=== PATIENT | male | born 1970 | race Caucasian/White ===

== ENCOUNTER 2020-04-14 15:56 | Outpatient (REF) | payer OTHER, SELFPAY | END 2020-04-14 15:57 | disposition home or self-care (01) | LOC: HO.LAB 15:56 | PROVIDERS: PCP Internal Medicine; Visit Provider Internal Medicine | DX: Z20.828 Contact with and (suspected) exposure to other viral communicable diseases (principal) | CPT/HCPCS: U0003 ==

== ENCOUNTER 2020-04-18 09:54 | Outpatient (REF) | payer OTHER, SELFPAY ==
--- NOTE | 2020-04-18 16:04 | MHC.AU.P13 ---
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 History of long-standing hearing loss, first diagnosed at ~15 years old. Patient denies any significant changes to his hearing. Notes that the hearing aids are not always comfortable. 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 Over the past few years he reports have two back surgeries, knee surgery, and surgery on his abdomen. Otoscopy: Right Ear: Unremarkable Left Ear: Unremarkable Tympanometry: Right Ear: Normal Middle Ear System (Type A) Left Ear: Normal Middle Ear System (Type A) Hearing Evaluation: Transducer(s) Used: Insert Earphones, Bone Conduction Method: Conventional Audiometry Stimuli Used: Pure Tones Right Ear: Description of Hearing: Normal hearing from 125-750 Hz, sloping to a mild to severe sensorineural hearing loss from 0075-5020 Hz. Left Ear: Description of Hearing: Normal hearing from 125-1000 Hz, sloping to a mild to moderately-severe sensorineural hearing loss from 8780-3509 Hz. Speech Recognition Threshold (SRT): Method Used: Monitored Live Voice Stimuli Used: Spondee words Right Ear: 20 dBHL Left Ear: 25 dBHL Word Discrimination: Method: Recorded Lists Word Lists Used: NU-6 Right Ear: 96% at 75 dBHL Left Ear: 96% at 75 dBHL Comparison: Compared to the most recent evaluation: Thresholds have improved bilaterally. Compared to most recent evaluation: Slight improvement in low frequency and high frequency thresholds bilaterally. Stable in the mid frequencies. Recommendations: Recommendations: Audiological re-evaluation in one year. See Hearing Aid Follow-Up note for more information. Hearing aid(s) reprogrammed with updated test results. Diagnosis: Primary Diagnosis: H90.3 Bilateral Sensorineural Hearing Loss Secondary Diagnosis: H93.13 Tinnitus, Bilateral Services Performed: Services Performed: Comprehensive Audiological Evaluation (CPT 55687) Tympanometry (CPT 50816) Signature: Provider: Luma Dickerson, CCC-A
== END 2020-04-18 09:55 | disposition home or self-care (01) ==
LOC: HO.SH 09:54
PROVIDERS: Visit Provider Internal Medicine
DX: H90.3 Sensorineural hearing loss, bilateral (principal); H93.13 Tinnitus, bilateral
CPT/HCPCS: 92557; 92567; 92593; 99499; V5266

== ENCOUNTER → 2020-08-22 14:16 | Outpatient (BNVA) | payer OTHER, SELFPAY | PROVIDERS: PCP Internal Medicine; Visit Provider Urology | DX: Z13.89 Encounter for screening for other disorder (principal) | CPT/HCPCS: 99202 ==

== ENCOUNTER 2020-09-19 11:07 | Outpatient (REF) | payer OTHER, SELFPAY ==
--- NOTE | ~2020-09-19 | XR_ITS ---
EXAMINATION: XR ABDOMEN KUB CLINICAL INDICATION: Abdominal distention COMPARISON: CT scan the abdomen and pelvis April 2014 TECHNIQUE: AP view of the abdomen. FINDINGS: The bowel gas pattern is normal with no evidence of ileus or obstruction. No unusual soft tissue calcifications are noted. Postsurgical changes related to fusion at the L5-S1 level XR/XR KUB IMPRESSION: No acute abnormality
[2020-09-19 12:25] LABS: MANUAL DIFF FLAG NO
[2020-09-19 12:30] LABS: Basophils Absolute Auto 0.1 X10*3/uL (0.0-0.2); Basophils Percent Auto 0.7 % (0-2); Eosinophils Absolute Auto 0.1 X10*3/uL (0.0-0.4); Eosinophils Percent Auto 1.6 % (0-4); Hematocrit 47.8 % (42-52); Hemoglobin 15.9 g/dl (14.0-18.0); Imm Gran Abs Auto 0.03 X10*3/uL (0.00-0.03); Imm Gran Pct Auto 0.3 % (0.0-0.4); Lymphocytes Absolute Auto 2.4 X10*3/uL (1.2-4.9); Lymphocytes Percent Auto 27.2 % (20-40); Mean Corpuscular HGB Conc 33.3 g/dl (31.0-36.0); Mean Corpuscular Hemoglobin 31.9 pg (27.0-33.0); Mean Platelet Volume 10.7 fL (9.4-12.4); Monocytes Absolute Auto 0.6 X10*3/uL (0.1-1.2); Monocytes Percent Auto 7.2 % (2-11); Neutrophils Absolute Auto 5.4 X10*3/uL (2.0-8.3); Platelet Count 210 X10*3/uL (160-400); Red Blood Count 4.98 X10*6/uL (4.60-5.80); Red Cell Distribution Width 13.2 % (11.0-16.0); White Blood Count 8.6 X10*3/uL (4.8-10.8)
[2020-09-19 12:58] LABS: Anion Gap 12 (12-20); Blood Urea Nitrogen 16 mg/dL (9-16); Calcium 9.6 mg/dL (8.4-10.2); Carbon Dioxide 30 mmol/L (22-29); Chloride 106 mmol/L (96-108); Estimated Glomerular Filt Rate > 60; Glucose Random 109 mg/dL (60-115); Potassium 4.7 mmol/L (3.3-5.1); Sodium 143 mmol/L (135-145)
[2020-09-19 13:23] LABS: Erythrocyte Sedimentation Rate 5 MM/HR (0-15)
[2020-09-20 09:18] LABS: HIV AB/AG Nonreactive (Nonreactive); HIV Num 1 0.04 S/CO (0.00-0.99)
[2020-09-22 12:51] LABS: Transglutaminase IgA 1 U/mL
[2020-09-22 13:17] LABS: Gliadin Deamidated IgA Ab 2 Units; Gliadin Deamidated IgG Ab 2 Units
== END 2020-09-19 11:08 | disposition home or self-care (01) ==
LOC: HO.XRAY 11:07
PROVIDERS: PCP Internal Medicine; Visit Provider Internal Medicine
DX: Z11.4 Encounter for screening for human immunodeficiency virus [HIV] (principal); R19.7 Diarrhea, unspecified; R14.0 Abdominal distension (gaseous)
CPT/HCPCS: 36415; 74018; 80048; 83516; 85025; 85652; 87389

== ENCOUNTER 2020-09-20 09:18 | Outpatient (REF) | payer OTHER, SELFPAY | END 2020-09-20 09:19 | disposition home or self-care (01) | LOC: HO.LNP 09:18 | PROVIDERS: Visit Provider Internal Medicine | DX: Z11.4 Encounter for screening for human immunodeficiency virus [HIV] (principal); R19.7 Diarrhea, unspecified | CPT/HCPCS: 87045; 87046; 87177; 87209; 87329 ==

== ENCOUNTER 2021-01-07 11:09 | Outpatient (REF) | payer OTHER, SELFPAY ==
--- NOTE | ~2021-01-07 | XR_ITS ---
EXAMINATION: XR CHEST CLINICAL INFORMATION: Shortness of breath COMPARISON: April 28, 2014 TECHNIQUE: 2 views of the chest were obtained. FINDINGS: No significant abnormality is noted involving the heart, lungs, mediastinum, bony thorax or soft tissues. XR/XR chest 2V IMPRESSION: No acute disease.
[2021-01-07 13:58] LABS: MANUAL DIFF FLAG NO
[2021-01-07 14:02] LABS: Basophils Percent Auto 0.6 % (0-2); Eosinophils Absolute Auto 0.2 X10*3/uL (0.0-0.4); Eosinophils Percent Auto 2.4 % (0-4); Hematocrit 49.2 % (42-52); Hemoglobin 16.5 g/dl (14.0-18.0); Imm Gran Abs Auto 0.03 X10*3/uL (0.00-0.03); Imm Gran Pct Auto 0.4 % (0.0-0.4); Lymphocytes Absolute Auto 2.5 X10*3/uL (1.2-4.9); Lymphocytes Percent Auto 35.5 % (20-40); Mean Corpuscular HGB Conc 33.5 g/dl (31.0-36.0); Mean Corpuscular Hemoglobin 33.4 pg (27.0-33.0); Mean Corpuscular Volume 99.6 fL (80-98); Mean Platelet Volume 11.1 fL (9.4-12.4); Monocytes Absolute Auto 0.6 X10*3/uL (0.1-1.2); Monocytes Percent Auto 7.9 % (2-11); Neutrophils Absolute Auto 3.8 X10*3/uL (2.0-8.3); Neutrophils Percent Auto 53.2 % (45-73); Platelet Count 236 X10*3/uL (160-400); Red Blood Count 4.94 X10*6/uL (4.60-5.80); White Blood Count 7.1 X10*3/uL (4.8-10.8)
[2021-01-07 14:23] LABS: Alanine Aminotransferase 22 U/L (0-40); Albumin Level 4.5 g/dL (3.5-5.0); Alkaline Phosphatase 105 U/L (39-117); Anion Gap 12 (12-20); Aspartate Amino Transferase 20 U/L (5-37); Bilirubin Total 0.3 mg/dL (0.0-1.0); Blood Urea Nitrogen 14 mg/dL (9-16); Calcium 9.6 mg/dL (8.4-10.2); Carbon Dioxide 28 mmol/L (22-29); Chloride 104 mmol/L (96-108); Cholesterol 235 mg/dL; Estimated Glomerular Filt Rate > 60; Glucose Random 111 mg/dL (60-115); HDL Cholesterol 52 mg/dL; LDL Cholesterol Calculated 160 mg/dl; Potassium 4.2 mmol/L (3.3-5.1); Sodium 140 mmol/L (135-145); Total Protein 6.8 g/dL (6.5-8.0); Triglycerides 115 mg/dL
[2021-01-07 14:36] LABS: T4 Thyroxine 6.5 ug/dL (4.5-12.0); Thyroid Stimulating Hormone 1.79 uIU/mL (0.32-4.0)
[2021-01-07 14:44] LABS: Erythrocyte Sedimentation Rate 3 MM/HR (0-15)
[2021-01-09 06:56] LABS: Triiodothyronine T3 Total 106 ng/dL (76-181)
[2021-01-09 21:02] LABS: TS Negative Control Passed; TS Panel A 0; TS Panel B 0; TS Positive Control Passed; TSpotTB Negative (SeeBelow)
== END 2021-01-07 11:10 | disposition home or self-care (01) ==
LOC: HO.HMGCX 11:09
PROVIDERS: PCP Internal Medicine; Visit Provider Internal Medicine
DX: R61 Generalized hyperhidrosis (principal); R06.02 Shortness of breath
CPT/HCPCS: 36415; 71046; 80053; 80061; 84436; 84443; 84480; 85025; 85652; 86481

== ENCOUNTER 2021-01-09 08:02 | Outpatient (REF) | payer OTHER, SELFPAY ==
--- NOTE | 2021-01-09 | PFT_ITS ---
INDICATION: Shortness of breath. SPIROMETRY: The FEV1 to FVC of 78% with an FEV1 of 4.05 L with 102% predicted and an FVC of 5.18 L which is 101% predicted. No significant response to bronchodilators noted. Maximum voluntary ventilation 108% predicted. LUNG VOLUMES: Total lung capacity 101% predicted with residual volume 100% predicted. DIFFUSION CAPACITY: DLCO 53% predicted. COMPARISONS: None. INTERPRETATION: No obstructive nor restrictive ventilatory defects identified. No significant response to bronchodilators noted. Normal maximum voluntary ventilation. Again, lung volumes are within normal limits. The flow volume loop also appears to be completely normal. However, the patient does have an isolated moderate diffusion impairment. Indeed, the diffusion impairment could response to some of the symptoms of shortness of breath. Need to consider underlying pulmonary vascular conditions or occult interstitial lung conditions. Further evaluation is warranted. Pulmonary consultation would be helpful. MD GOKUL Guillaume/MODL / [id number] MTDD
== END 2021-01-09 08:03 | disposition home or self-care (01) ==
LOC: HO.RESP 08:02
PROVIDERS: PCP Internal Medicine; Visit Provider Internal Medicine
DX: R06.02 Shortness of breath (principal)
CPT/HCPCS: 94060; 94727; 94729

== ENCOUNTER → 2021-02-10 10:54 | Outpatient (REF) | payer OTHER, SELFPAY ==
--- NOTE | 2021-02-10 11:41 | ECG_ITS ---
Test Reason : COPD Blood Pressure : / mmHG Vent. Rate : 054 BPM Atrial Rate : 054 BPM P-R Int : 178 ms QRS Dur : 090 ms QT Int : 402 ms P-R-T Axes : 068 057 041 degrees QTc Int : 381 ms Sinus bradycardia Otherwise normal ECG When compared with ECG of 28-APR-2014 16:36, QT has shortened Referred By: Rebel Mishra Electronically Signed By:ARIANA SALEEM
[2021-02-10 12:18] LABS: D Dimer < 200 NG/ML
[2021-02-10 12:35] LABS: Troponin-I High Sensitivity < 3.5 ng/L (<3.5-35.0)
[2021-02-12 10:41] LABS: Scleroderma 70 Antibody <1.0 NEG AI (<1.0 NEG)
[2021-02-12 14:21] LABS: Anti Nuclear Antibody Screen NEGATIVE (NEGATIVE)
== END ==
LOC: HO.CARD 10:54
PROVIDERS: PCP Internal Medicine; Visit Provider Hospitalist
DX: R06.00 Dyspnea, unspecified (principal); J98.59 Other diseases of mediastinum, not elsewhere classified; R94.2 Abnormal results of pulmonary function studies; F17.200 Nicotine dependence, unspecified, uncomplicated; J44.9 Chronic obstructive pulmonary disease, unspecified
CPT/HCPCS: 36415; 84484; 85379; 86038; 86039; 86235; 93005; 99202

== ENCOUNTER → 2021-03-03 11:18 | Outpatient (REF) | payer OTHER, SELFPAY ==
--- NOTE | 2021-03-03 11:22 | CA_ITS ---
Acquisition Time: 2021-03-03 11:24:01 Total Exercise Time: 00:12:00 Test Indications: SOB, CP Medications: SEE CHART Protocol: OSVALDO Max HR: 166 BPM 96% of Pred: 172 BPM Max BP: 180/050 mmHG Max Work Load: 13.4 METS Exercise stress test with exercise 12 min of Osvaldo protocol, with visably moderate shortness of breath, (pt reports his breathing as very bad ), no chest discomfort, without arrythmia, with normotensive response to exercise, without EKG changes meeting criteria for ischemia. Echo images obtained by tech at rest and immediately post peak exercise. Definity contrast used. Test reviewed with Dr Fernandez. Referred By: Rebel Mishra Overread By: CLAIRE CERRATO
== END ==
LOC: HO.CARD 11:18
PROVIDERS: Visit Provider Hospitalist
DX: R07.9 Chest pain, unspecified (principal); R06.00 Dyspnea, unspecified
CPT/HCPCS: 93350

== ENCOUNTER 2021-03-04 12:39 | Outpatient (RCR) | payer OTHER, SELFPAY | END 2021-04-16 13:37 | disposition home or self-care (01) | LOC: HO.PTCHIC 12:39 | PROVIDERS: PCP Internal Medicine; Visit Provider Internal Medicine | DX: M54.89 Other dorsalgia (principal) | CPT/HCPCS: 97110; 97162; 97163 ==

== ENCOUNTER → 2021-03-09 10:46 | Outpatient (BNVA) | payer OTHER, SELFPAY | PROVIDERS: PCP Internal Medicine; Visit Provider Hospitalist | DX: J98.59 Other diseases of mediastinum, not elsewhere classified (principal); J44.9 Chronic obstructive pulmonary disease, unspecified; R94.2 Abnormal results of pulmonary function studies; R06.00 Dyspnea, unspecified | CPT/HCPCS: 99212 ==

== ENCOUNTER 2021-03-10 09:13 | Outpatient (REF) | payer OTHER, SELFPAY ==
--- NOTE | ~2021-03-10 | CT_ITS ---
EXAMINATION: CT CHEST WITHOUT CONTRAST CLINICAL INFORMATION: Other disease in mediastinum. COMPARISON: Previous chest CTA April 2014 and chest x-ray December 2020. TECHNIQUE: Multidetector volumetric CT imaging of the chest was done. Axial MIP volume rendering provided. Sagittal and coronal reformatted images were obtained. This CT examination was performed using dose optimization techniques as appropriate, variously including the following: *Automated exposure control *Adjustment of mA and/or kV according to patient size (this includes techniques or standardized protocols for targeted exams where dose is matched to indication/reason for exam; i.e. extremities or head) *Use of iterative reconstruction technique DLP: 141 mGy-cm. 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 The lungs are clear. MEDIASTINUM: There is slight heterogeneous increased signal in the fat in the anterior superior mediastinum. This measures 1.3 x 1.6 cm in transverse and AP dimension, axial image 17 series 3 and extends over a length of 5.5 cm, axial image 57 series 7. This has low Hounsfield units, fatty. There are small mediastinal lymph nodes. There are no enlarged lymph nodes. The heart does not appear enlarged. There is no pericardial effusion. The thoracic aorta is normal in caliber. The thyroid gland is normal. PLEURA: There is no pleural effusion. No pleural mass or thickening. AXILLA: No lymphadenopathy. UPPER ABDOMEN: Unremarkable. OSSEOUS STRUCTURES: Unremarkable. CT/CT chest wo con IMPRESSION: Stable appearance to the heterogeneous, slightly increased signal in the fat in the anterior superior mediastinum from 2014. This is probably related to thymic tissue, possibly thymic hyperplasia. Stable appearance compared to 2014 suggests a benign process. This could be further evaluated with MRI of the chest if clinically indicated..
== END 2021-03-10 09:14 | disposition home or self-care (01) ==
LOC: HO.CT 09:13
PROVIDERS: PCP Internal Medicine; Visit Provider Hospitalist
DX: J98.59 Other diseases of mediastinum, not elsewhere classified (principal); R06.00 Dyspnea, unspecified; R94.2 Abnormal results of pulmonary function studies
CPT/HCPCS: 71250

== ENCOUNTER 2021-04-17 14:30 | Outpatient (REF) | payer OTHER, SELFPAY ==
--- NOTE | ~2021-04-17 | XR_ITS ---
EXAMINATION: XR CHEST CLINICAL INFORMATION: Cough COMPARISON: 01/07/2021 TECHNIQUE: 2 views of the chest were obtained. FINDINGS: The lungs are well expanded. There is no focal consolidation, edema, or effusion. No pneumothorax. The cardiomediastinal silhouette is within normal limits. No acute osseous abnormality. XR/XR chest 2V IMPRESSION: No acute pulmonary finding.
== END 2021-04-17 14:31 | disposition home or self-care (01) ==
LOC: HO.XRAY 14:30
PROVIDERS: Absent Provider Internal Medicine; PCP Internal Medicine; Visit Provider Registered Nurse Community Health
DX: R05.9 Cough, unspecified (principal)
CPT/HCPCS: 71046

== ENCOUNTER → 2021-04-29 10:53 | Outpatient (BNVA) | payer OTHER, SELFPAY | PROVIDERS: PCP Internal Medicine; Visit Provider Hospitalist | DX: R06.00 Dyspnea, unspecified (principal); R94.2 Abnormal results of pulmonary function studies; J40 Bronchitis, not specified as acute or chronic; J98.59 Other diseases of mediastinum, not elsewhere classified; F17.200 Nicotine dependence, unspecified, uncomplicated | CPT/HCPCS: 99212 ==

== ENCOUNTER 2022-03-18 13:42 | Outpatient (REF) | payer OTHER, SELFPAY ==
[2022-03-18 13:53] LABS: MANUAL DIFF FLAG NO
[2022-03-18 14:36] LABS: Basophils Absolute Auto 0.1 X10*3/uL (0.0-0.2); Basophils Percent Auto 0.6 % (0-2); Eosinophils Absolute Auto 0.1 X10*3/uL (0.0-0.4); Eosinophils Percent Auto 0.9 % (0-4); Hemoglobin 16.2 g/dl (14.0-18.0); Imm Gran Abs Auto 0.04 X10*3/uL (0.00-0.03); Imm Gran Pct Auto 0.4 % (0.0-0.4); Lymphocytes Absolute Auto 2.5 X10*3/uL (1.2-4.9); Lymphocytes Percent Auto 22.5 % (20-40); Mean Corpuscular HGB Conc 33.8 g/dl (31.0-36.0); Mean Corpuscular Hemoglobin 33.2 pg (27.0-33.0); Mean Corpuscular Volume 98.4 fL (80.0-98.0); Mean Platelet Volume 10.3 fL (9.4-12.4); Monocytes Absolute Auto 0.7 X10*3/uL (0.1-1.2); Monocytes Percent Auto 6.3 % (2-11); Neutrophils Absolute Auto 7.7 x10*3/uL (2.0-8.3); Neutrophils Percent Auto 69.3 % (45-73); Platelet Count 209 X10*3/uL (160-400); Red Blood Count 4.88 X10*6/uL (4.60-5.80); Red Cell Distribution Width 13.2 % (11.0-16.0); White Blood Count 11.1 X10*3/uL (4.8-10.8)
[2022-03-18 15:00] LABS: Anion Gap 14 (12-20); Blood Urea Nitrogen 14 mg/dL (9-16); Calcium 9.8 mg/dL (8.4-10.2); Carbon Dioxide 27 mmol/L (22-29); Chloride 103 mmol/L (96-108); Estimated Glomerular Filt Rate > 60; Glucose Random 94 mg/dL (60-115); Potassium 4.6 mmol/L (3.3-5.1); Sodium 139 mmol/L (135-145)
[2022-03-18 15:21] LABS: Erythrocyte Sedimentation Rate 4 MM/HR (0-15)
[2022-03-20 14:22] LABS: Alpha 1 Anti-trypsin 160 mg/dL (83-199)
== END 2022-03-18 13:43 | disposition home or self-care (01) ==
LOC: HO.LAB 13:42
PROVIDERS: PCP Internal Medicine; Visit Provider Hospitalist
DX: R06.00 Dyspnea, unspecified (principal); J98.59 Other diseases of mediastinum, not elsewhere classified; R94.2 Abnormal results of pulmonary function studies; J44.9 Chronic obstructive pulmonary disease, unspecified; F17.200 Nicotine dependence, unspecified, uncomplicated; Z71.6 Tobacco abuse counseling
CPT/HCPCS: 36415; 80048; 82103; 85025; 85652; 99212

== ENCOUNTER 2022-04-03 21:59 | Emergency (ER) | payer OTHER, SELFPAY ==
--- NOTE | 2022-04-03 | ECG_ITS ---
Test Reason : CP Blood Pressure : / mmHG Vent. Rate : 080 BPM Atrial Rate : 080 BPM P-R Int : 160 ms QRS Dur : 086 ms QT Int : 366 ms P-R-T Axes : 076 057 046 degrees QTc Int : 422 ms Normal sinus rhythm Normal ECG When compared with ECG of 10-FEB-2021 11:47, Vent. rate has increased BY 26 BPM T wave amplitude has decreased in Anterolateral leads Referred By: Generic ED Physician Electronically Signed By:JYOTI RODRIGUES MD
[2022-04-03 22:01] VITALS: BP 139/64; PULSE 78; RESP 20; TEMP 36.8; O2SAT 95; BMI 23.6
[2022-04-03 22:19] LABS: MANUAL DIFF FLAG NO
[2022-04-03 22:21] LABS: Basophils Absolute Auto 0.1 X10*3/uL (0.0-0.2); Eosinophils Absolute Auto 0.2 X10*3/uL (0.0-0.4); Eosinophils Percent Auto 2.5 % (0-4); Hematocrit 46.9 % (42.0-52.0); Hemoglobin 15.8 g/dl (14.0-18.0); Imm Gran Abs Auto 0.01 X10*3/uL (0.00-0.03); Imm Gran Pct Auto 0.2 % (0.0-0.4); Lymphocytes Absolute Auto 1.8 X10*3/uL (1.2-4.9); Lymphocytes Percent Auto 29.6 % (20-40); Mean Corpuscular HGB Conc 33.7 g/dl (31.0-36.0); Mean Corpuscular Hemoglobin 33.8 pg (27.0-33.0); Mean Corpuscular Volume 100.4 fL (80.0-98.0); Mean Platelet Volume 10.2 fL (9.4-12.4); Monocytes Absolute Auto 0.7 X10*3/uL (0.1-1.2); Monocytes Percent Auto 11.3 % (2-11); Neutrophils Absolute Auto 3.3 x10*3/uL (2.0-8.3); Neutrophils Percent Auto 55.4 % (45-73); Platelet Count 227 X10*3/uL (160-400); Red Blood Count 4.67 X10*6/uL (4.60-5.80); Red Cell Distribution Width 13.2 % (11.0-16.0)
[2022-04-03 22:32] LABS: COVID-19 Test Positive (Negative); IDNOW Serial# 16C4AD1C
[2022-04-03 22:35] LABS: Anion Gap 17 (12-20); Blood Urea Nitrogen 15 mg/dL (9-16); Calcium 9.7 mg/dL (8.4-10.2); Carbon Dioxide 25 mmol/L (22-29); Chloride 104 mmol/L (96-108); Creatinine Clr Calc Pharmacy 103.6; Estimated Glomerular Filt Rate > 60; Glucose Random 115 mg/dL (60-115); Potassium 4.5 mmol/L (3.3-5.1); Sodium 141 mmol/L (135-145)
[2022-04-03 22:43] LABS: Troponin-I High Sensitivity < 3.5 ng/L (<3.5-35.0)
[2022-04-04 00:58] LABS: Troponin-I High Sensitivity < 3.5 ng/L (<3.5-35.0)
--- NOTE | 2022-04-04 03:51 | ED_ITS ---
HPI - Chest Pain General Chief Complaint: Chest Pain Stated Complaint: Chest pain Time Seen by Provider: 04/04/22 02:36 Source: patient Mode of arrival: ambulatory History of Present Illness HPI narrative: Ray 11-year-old male who states that he has been having left chest wall pain without fever chills. He states he has longstanding history of back pain and denies any traumatic event. He states he also smokes cigarettes every day and i ntermittently feels short of breath. Related Data Home Medications Medication Instructions Recorded Confirmed amlodipine 5 mg tablet 5 mg PO DAILY 08/22/20 aripiprazole 5 mg tablet 7.5 mg PO DAILY 08/22/20 cholecalciferol (vitamin D3) 50 50 mcg PO DAILY 08/22/20 mcg (2,000 unit) capsule lamotrigine 100 mg tablet,extended 100 mg PO DAILY 08/22/20 release 24 hr emtricitabine 200 mg-tenofovir 1 tab PO DAILY 02/10/21 alafenamide fumarate 25 mg tablet (Descovy) epinephrine 0.3 mg/0.3 mL IM 02/10/21 injection, auto-injector gabapentin 400 mg capsule 400 mg PO TID 02/10/21 oxycodone-acetaminophen 7.5 mg-325 1 tab PO DAILY PRN 02/10/21 mg tablet lamotrigine 50 mg tablet,extended 0 mg PO 03/09/21 release 24 hr cyclobenzaprine 10 mg tablet 10 mg PO DAILY 03/18/22 fluticasone propionate 50 1 - 2 spray intranasal DAILY PRN 03/18/22 mcg/actuation nasal spray,suspension loperamide 2 mg tablet 2 mg PO BID PRN diarrhea 03/18/22 (Anti-Diarrheal (loperamide)) paroxetine HCl 20 mg tablet 20 mg PO DAILY 03/18/22 Previous Rx's Medication Instructions Recorded umeclidinium 62.5 mcg-vilanterol 1 inh inhalation DAILY #60 ea 03/18/22 25 mcg/actuation powdr for inhalation (Anoro Ellipta) Allergies Allergy/AdvReac Type Severity Reaction Status Date / Time bee pollen [BEE STINGS] Allergy Severe ANAPHYLAXIS Unverified 03/18/22 13:06 Review of Systems Review of Systems: Pertinent positives and negatives as stated in HPI 10 point review of systems is otherwise negative. PMFSH Past Medical History Source: nursing notes reviewed Medical History Abnormal PFTs (pulmonary function tests) Anxiety Bronchitis Chest pain COPD (chronic obstructive pulmonary disease) Depressive disorder Dyspnea Hypospadias in male Mediastinal mass Tobacco dependence Surgical History History of back surgery History of knee surgery Social History Social History Patient Tobacco Use Status: Current everyday Tobacco user Tobacco use type: Cigarette Years Smoked: Since 16 years old Advance Directives: No Advance Directives Information Provided: Yes Physical Exam Vital Signs: Vital Signs: Last Vital Signs Temp 98.2 F 04/03/22 22:01 Pulse 78 04/03/22 22:01 Resp 20 04/03/22 22:01 BP 139/64 04/03/22 22:01 Pulse Ox 95 04/03/22 22:01 O2 Del Method 04/03/22 22:01 BMI result Body Mass Index 23.6 VITAL SIGNS: Reviewed. GENERAL: Well developed, well nourished, in no acute distress. HEAD: Normocephalic/atraumatic EYES: PERRLA, EOMI EARS: Ext canals without abnormality OROPHARYNX: no oral lesions noted, posterior pharynx clear LUNGS: Normal breath sounds. No adventitious sounds or accessory muscle use. SpO2<95> CARDIOVASCULAR: Regular rate and rhythm without noted murmurs, no JVD or lower extremity edema. ABDOMEN: Soft, non-tender, non-distended with bowel sounds. MUSCULOSKELETAL: No tenderness, deformities, or effusions noted on gross inspection. EXTREMITIES: No cyanosis, clubbing or edema. SKIN: Inspection of the skin reveals no rashes NEUROLOGIC: Alert and oriented x 4. Strength and sensation to light touch were grossly intact x 4. Course Course Course Narrative: 51-year-old male with history and clinical presentation suggestive of possible cardiopulmonary etiology but on review of all investigations to include serial troponins and EKG there are no acute findings to suggest pneumonia or cardiac ischemia. However, patient is noted be COVID-19 positive and all results were discussed with him at bedside. He was also instructed to isolate for the next 5 days and then follow all CDC guidelines. MDM - Chest Pain Lab Data Result diagrams: 04/03/22 22:12 04/03/22 22:12 Labs: Lab Results 04/03/22 04/03/22 04/03/22 Range/Units 22:12 22:12 22:12 WBC 6.0 (4.8-10.8) X10*3/uL RBC 4.67 (4.60-5.80) X10*6/uL Hgb 15.8 (14.0-18.0) g/dl Hct 46.9 (42.0-52.0) % MCV 100.4 H (80.0-98.0) fL MCH 33.8 H (27.0-33.0) pg MCHC 33.7 (31.0-36.0) g/dl RDW 13.2 (11.0-16.0) % Plt Count 227 (160-400) X10*3/uL MPV 10.2 (9.4-12.4) fL Immature Gran % (Auto) 0.2 (0.0-0.4) % Neut % (Auto) 55.4 (45-73) % Lymph % (Auto) 29.6 (20-40) % [place] % (Auto) 11.3 H (2-11) % Eos % (Auto) 2.5 (0-4) % Baso % (Auto) 1.0 (0-2) % Lymph # (Auto) 1.8 (1.2-4.9) X10*3/uL [place] # (Auto) 0.7 (0.1-1.2) X10*3/uL Eos # (Auto) 0.2 (0.0-0.4) X10*3/uL Baso # (Auto) 0.1 (0.0-0.2) X10*3/uL Abs Immat Gran (auto) 0.01 (0.00-0.03) X10*3/uL Absolute Neuts (auto) 3.3 (2.0-8.3) x10*3/uL Absolute Nucleated RBC 0.000 (0.0-0.012) X10*3/uL Nucleated RBC % (auto) 0.0 (0.0-0.2) /100WBC Sodium 141 (135-145) mmol/L Potassium 4.5 (3.3-5.1) mmol/L Chloride 104 (96-108) mmol/L Carbon Dioxide 25 (22-29) mmol/L Anion Gap 17 (12-20) BUN 15 (9-16) mg/dL Creatinine 0.89 (0.5-1.4) mg/dL Estim Creat Clear Calc 103.6 Estimated GFR > 60 Random Glucose 115 (60-115) mg/dL Calcium 9.7 (8.4-10.2) mg/dL Troponin I High Sens < 3.5 (<3.5-35.0) ng/L COVID-19 (MERLY) (Negative) COVID-19 Clin Com 04/03/22 04/04/22 Range/Units 22:12 00:24 WBC (4.8-10.8) X10*3/uL RBC (4.60-5.80) X10*6/uL Hgb (14.0-18.0) g/dl Hct (42.0-52.0) % MCV (80.0-98.0) fL MCH (27.0-33.0) pg MCHC (31.0-36.0) g/dl RDW (11.0-16.0) % Plt Count (160-400) X10*3/uL MPV (9.4-12.4) fL Immature Gran % (Auto) (0.0-0.4) % Neut % (Auto) (45-73) % Lymph % (Auto) (20-40) % [place] % (Auto) (2-11) % Eos % (Auto) (0-4) % Baso % (Auto) (0-2) % Lymph # (Auto) (1.2-4.9) X10*3/uL [place] # (Auto) (0.1-1.2) X10*3/uL Eos # (Auto) (0.0-0.4) X10*3/uL Baso # (Auto) (0.0-0.2) X10*3/uL Abs Immat Gran (auto) (0.00-0.03) X10*3/uL Absolute Neuts (auto) (2.0-8.3) x10*3/uL Absolute Nucleated RBC (0.0-0.012) X10*3/uL Nucleated RBC % (auto) (0.0-0.2) /100WBC Sodium (135-145) mmol/L Potassium (3.3-5.1) mmol/L Chloride (96-108) mmol/L Carbon Dioxide (22-29) mmol/L Anion Gap (12-20) BUN (9-16) mg/dL Creatinine (0.5-1.4) mg/dL Estim Creat Clear Calc Estimated GFR Random Glucose (60-115) mg/dL Calcium (8.4-10.2) mg/dL Troponin I High Sens < 3.5 (<3.5-35.0) ng/L COVID-19 (MERLY) Positive A (Negative) COVID-19 Clin Com See Note ECG Data ECG #1: Attestation: I personally reviewed and interpreted this ECG as follows: Prior ECG tracings: available for review Interpretation: Normal sinus rhythm, HR-80, no STEMI, MT/QRS/QTC are within normal limits. Discharge Plan Discharge Clinical Impression: Viral syndrome, Lab test positive for detection of COVID-19 virus, Atypical chest pain Patient Disposition: Home, Self-Care Instructions: Viral Syndrome (ED), COVID-19 (Coronavirus Disease 2019) (ED), Costochondritis (ED) Additional Instructions: 1. Resume all home medications as prescribed. 2. Recommend [id number] Tylenol and ibuprofen for left chest wall pain as well as lidocaine patch to the area of maximal tenderness. 3. Follow-up with your primary care provider by calling the office on Tuesday morning. You must isolate for the next 5 days as you have been tested and found to be positive for COVID-19. Then follow all current state and CDC guidelines. Return to the ER for worsening symptoms. Prescriptions: No Action lamotrigine 100 mg tablet extended release 24hr 100 mg PO DAILY aripiprazole 5 mg tablet 7.5 mg PO DAILY cholecalciferol (vitamin D3) 50 mcg (2,000 unit) capsule 50 mcg PO DAILY amlodipine 5 mg tablet 5 mg PO DAILY lamotrigine 50 mg tablet extended release 24hr 0 mg PO oxycodone-acetaminophen 7.5-325 mg tablet 1 tab PO DAILY PRN epinephrine 0.3 mg/0.3 mL auto-injector IM gabapentin 400 mg capsule 400 mg PO TID [place]covy 200-25 mg tablet 1 tab PO DAILY loperamide [Anti-Diarrheal (loperamide)] 2 mg tablet 2 mg PO BID PRN (Reason: diarrhea) cyclobenzaprine 10 mg tablet 10 mg PO DAILY fluticasone propionate 50 mcg/actuation spray,suspension 1 - 2 spray intranasal DAILY PRN paroxetine HCl 20 mg tablet 20 mg PO DAILY Anoro Ellipta 62.5-25 mcg/actuation blister with device 1 inh inhalation DAILY Qty: 60 11RF Referrals: Mariella Vanegas MD [Primary Care Provider] -
== END 2022-04-04 04:15 | disposition home or self-care (01) ==
PROVIDERS: Emergency Provider Student in an Organized Health Care Education/Training Program; PCP Internal Medicine
DX: U07.1 COVID-19 (principal); R07.89 Other chest pain; M54.50 Low back pain, unspecified; F17.210 Nicotine dependence, cigarettes, uncomplicated; Z71.6 Tobacco abuse counseling; Z79.899 Other long term (current) drug therapy
CPT/HCPCS: 36415; 80048; 84484; 85025; 87635; 93005; 99283

== ENCOUNTER 2022-04-08 10:38 | Outpatient (REF) | payer OTHER, SELFPAY ==
--- NOTE | ~2022-04-08 | CT_ITS ---
EXAMINATION: CT CHEST WITH CONTRAST CLINICAL INFORMATION: Mediastinal abnormality. COMPARISON: 03/10/2021 and 04/28/2014. TECHNIQUE: Multidetector volumetric CT imaging of the chest was obtained after the administration of 65 mL of Omnipaque 350 intravenous contrast without immediate adverse reactions. Axial MIP volume rendering provided. Sagittal and coronal reformatted images were obtained. This CT examination was performed using dose optimization techniques as appropriate, variously including the following: *Automated exposure control *Adjustment of mA and/or kV according to patient size (this includes techniques or standardized protocols for targeted exams where dose is matched to indication/reason for exam; i.e. extremities or head) *Use of iterative reconstruction technique DLP: 138 mGy-cm. FINDINGS: LUNGS: The central airways are patent. No bronchial wall thickening. No bronchiectasis. No confluent parenchymal disease. No significant lung nodules identified. There are some scattered 1 mm density seen bilaterally. There are some left-sided apical blebs present. MEDIASTINUM: There is again noted to be a soft tissue density about the anterior superior mediastinum measuring approximately 2.0 x 1.3 x 5.2 cm in size. This is unchanged from previous studies dating back to 04/28/2014 and likely represents some residual thymic tissue. No significant mass effect is appreciated. No significant enhancement is seen. Visualized thyroid gland unremarkable. Heart normal size. No coronary artery calcifications seen. No pericardial effusion. No thoracic aortic aneurysm. Arch vessels appear unremarkable. No mediastinal or hilar lymphadenopathy is appreciated. The largest mediastinal lymph node is in the right precarinal region measuring approximately 1.4 x 0.8 cm in size. There is a right hilar node measuring up to 8 mm in short axis. CORONARY ARTERY CALCIFICATION: None visualized on this study. PLEURA: There is no pleural effusion. No pleural mass or thickening. AXILLA: No lymphadenopathy. UPPER ABDOMEN: Unremarkable OSSEOUS STRUCTURES: Unremarkable. CT/CT chest w IV con IMPRESSION: Stable superior mediastinal soft tissue density consistent with some residual thymic tissue. Findings are unchanged dating back to 04/28/2014. Fleischner guidelines were followed.
[2022-04-08] MEDS: iohexoL 350 MG/ML 100 ML INFUS..BTL IV (11:52)
== END 2022-04-08 10:39 | disposition home or self-care (01) ==
LOC: HO.CT 10:38
PROVIDERS: PCP Internal Medicine; Visit Provider Hospitalist
DX: J44.9 Chronic obstructive pulmonary disease, unspecified (principal); J98.59 Other diseases of mediastinum, not elsewhere classified
CPT/HCPCS: 71260; Q9967

== ENCOUNTER 2022-05-17 15:53 | Outpatient (REF) | payer OTHER, SELFPAY ==
--- NOTE | 2022-05-17 17:29 | PFT_ITS ---
Forced vital capacity 97%, FEV1 98%, FEV1/FVC ratio is 78, GAP41-20 99%, and MVV is 96%. Post bronchodilator therapy, there is no significant change. Total lung capacity 100%, and residual volume 98%. Diffusion capacity is 62%, which is slightly decreased. CONCLUSION: Normal pulmonary function test, and there is no evidence of obstructive or restrictive pulmonary disease. Diffusion capacity is slightly decreased. Probably due to nonspecific reason. Compared to PFT of 01/09/2021, there is no significant change and actually the diffusion capacity is somewhat improved. Naman Bowden MD MSB/MODL / [id number]
== END 2022-05-17 15:54 | disposition home or self-care (01) ==
LOC: HO.RESP 15:53
PROVIDERS: PCP Internal Medicine; Visit Provider Hospitalist
DX: J44.9 Chronic obstructive pulmonary disease, unspecified (principal); J98.59 Other diseases of mediastinum, not elsewhere classified
CPT/HCPCS: 94060; 94727; 94729

== ENCOUNTER → 2022-06-15 11:02 | Outpatient (BNVA) | payer OTHER, SELFPAY | PROVIDERS: PCP Internal Medicine; Visit Provider Hospitalist | DX: R06.00 Dyspnea, unspecified (principal); J98.59 Other diseases of mediastinum, not elsewhere classified; J44.9 Chronic obstructive pulmonary disease, unspecified; R94.2 Abnormal results of pulmonary function studies; Z72.0 Tobacco use | CPT/HCPCS: 99212 ==

== ENCOUNTER 2022-07-13 09:50 | Outpatient (REF) | payer OTHER, SELFPAY ==
--- NOTE | ~2022-07-13 | XR_ITS ---
EXAMINATION: XR KNEE, LEFT CLINICAL INFORMATION: Chronic pain left knee COMPARISON: None TECHNIQUE: Four views of the left knee. FINDINGS: Bones and soft tissues are normal. No acute fracture or joint effusion. Alignment is anatomic. Joint spaces are well maintained. No abnormal soft tissue calcification. XR/XR knee LT 2V IMPRESSION: Unremarkable left knee.
== END 2022-07-13 09:51 | disposition home or self-care (01) ==
LOC: HO.XRAY 09:50
PROVIDERS: PCP Internal Medicine; Visit Provider Internal Medicine
DX: M25.562 Pain in left knee (principal); G89.29 Other chronic pain
CPT/HCPCS: 73560

== ENCOUNTER 2023-01-12 10:55 | Outpatient (REF) | payer OTHER, SELFPAY ==
[2023-01-12 13:55] LABS: Estimated Glomerular Filt Rate > 60
[2023-01-12 14:58] LABS: Syphilis Screen Reactive (Nonreactive)
[2023-01-13 05:58] LABS: ~HepC Num1 0.05 S/CO (0.00-0.79); ~Hepatitis C Antibody Nonreactive (Nonreactive)
[2023-01-14 15:04] LABS: HIV RNA PCR Qn Copies NOT DETECTED copies/mL (NOT DETECTED); HIV RNA PCR Qn Log Copies NOT DETECTED (NOT DETECTED)
[2023-01-23 14:34] LABS: RPR Quantitative Non-Reactive (Nonreactive); T.Pallidum Particle Agg Test Reactive (Nonreactive)
== END 2023-01-12 10:56 | disposition home or self-care (01) ==
LOC: HO.HHCL 10:55
PROVIDERS: Visit Provider Internal Medicine
DX: Z20.2 Contact with and (suspected) exposure to infections with a predominantly sexual mode of transmission (principal)
CPT/HCPCS: 36415; 82565; 86592; 86780; 86803; 87536

== ENCOUNTER 2023-01-17 11:02 | Outpatient (REF) | payer OTHER, SELFPAY ==
[2023-01-17 15:23] LABS: Cholesterol 280 mg/dL; HDL Cholesterol 62 mg/dL; LDL Cholesterol Calculated 188 mg/dl; Triglycerides 152 mg/dL
[2023-01-17 19:29] LABS: MN% 80.8 %; PMN% 19.2 %; RBC Synovial Fluid 0.004 X10*6/uL; WBC Synovial Fluid 0.612 X10*3/uL
[2023-01-17 19:31] LABS: BF Shift QC OK YES; Lymphocytes Synovial Fluid 36 %; Monocytes Synovial Fluid 64 %
[2023-01-18 04:47] LABS: ~HepC Num1 0.06 S/CO (0.00-0.79); ~Hepatitis C Antibody Nonreactive (Nonreactive)
[2023-01-19 03:59] LABS: Syphilis Screen Reactive (Nonreactive)
[2023-01-23 14:31] LABS: RPR Quantitative Non-Reactive (Nonreactive); T.Pallidum Particle Agg Test Reactive (Nonreactive)
== END 2023-01-17 11:03 | disposition home or self-care (01) ==
LOC: HO.CHCLDS 11:02
PROVIDERS: Student in an Organized Health Care Education/Training Program; Visit Provider Internal Medicine
DX: M25.521 Pain in right elbow (principal); M25.421 Effusion, right elbow; E78.00 Pure hypercholesterolemia, unspecified; Z20.2 Contact with and (suspected) exposure to infections with a predominantly sexual mode of transmission
CPT/HCPCS: 36415; 80061; 86592; 86780; 86803; 87070; 87073; 87205; 89051; 89060

== ENCOUNTER 2023-03-24 15:37 | Outpatient (AMB) | payer OTHER, SELFPAY ==
[2023-03-24 16:06] VITALS: BP 140/82; PULSE 72; TEMP 36.6; O2SAT 96; BMI 24.7
--- NOTE | 2023-03-24 16:06 | AM.OFFWIN_ITS ---
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 Two days ago he fell down concrete steps for 5 steps struck his head no loss of consciousness no blood thinners. He is on pain management from his disability and takes Percocet which she took and lie down. The next day he thought was bruised and took a Percocet again laid down he has since had difficulty raising his right shoulder he can not raise it above 35 degrees. He also all his endorse a mild headache and some groin pain but most concerned about the shoulder. [facility] Medical History Abnormal PFTs (pulmonary function tests) Anxiety Bronchitis Chest pain COPD (chronic obstructive pulmonary disease) Depressive disorder Dyspnea Hypospadias in male Mediastinal mass Tobacco dependence Surgical History History of back surgery History of knee surgery Social History Patient Tobacco Use Status: Current everyday Tobacco user Tobacco use type: Cigarette Years Smoked: Since 16 years old Review of [place] [facility] [place] and Reports limited range of motion Physical Exam Vital Signs: Last Vital Signs Temp 97.8 F 03/24/23 16:06 Pulse 72 03/24/23 16:06 BP 140/82 H 03/24/23 16:06 Pulse Ox 96 03/24/23 16:06 Oxygen Delivery Method Room Air 10/12/23 16:06 BMI result Body Mass Index 24.7 Const General: healthy appearing, comfortable, no acute distress and alert Orientation/consciousness: patient oriented x3 Limitations: no limitations HEENT Head: Yes normal to inspection Ears: hearing grossly normal bilaterally Resp Effort & Inspection: normal respiratory effort and able to speak in complete sentences Cardio Rate: regular rate Skin General skin exam: no rashes or lesions noted Neuro General: patient oriented x3 Extrem Other: Right arm neurovascularly intact. Shoulder abduction to 35 degrees. Slight d eformity palpated over the glenohumeral joint. General: Yes normal to inspection Assessment & Plan Assessment & Plan (1) Shoulder pain: Code(s): M25.519 - Pain in unspecified shoulder Qualifiers: Chronicity: acute Laterality: right Qualified Code(s): M25.511 - Pain in right shoulder Plan Concern for shoulder dislocation versus fracture will should x-rays. X-rays negative suspicion for ligamentous injury recommend following up with Orthopedics Discharge instructions, follow up and treatment are discussed with patient in my usual fashion. Alternatives in treatment are also discussed. The patient will return for worsening symptoms or as needed. Advised that any labs/imaging ordered will be followed up on and contact made if further treatment needed. Counseled that patient's condition may require further evaluation and/or treatment. Symptoms of concern for worsening disorder discussed in detail in my customary manner. Patient does verbalize understanding of the plan, there are no apparent barriers to communication. The patient is given the opportunity to ask questions and have them answered to his/her satisfaction Orders: Orders XR shoulder RT min 2V Today M25.519 - Pain in unspecified shoulder Coding Level of Care Code Est Pt Level 4 (24400) Diagnoses Acute pain of right shoulder M25.511 Chronicity: acute Laterality: right
== END 2023-03-24 17:08 | disposition home or self-care (01) ==
PROVIDERS: PCP Internal Medicine; Visit Provider Physician Assistant
DX: M25.511 Pain in right shoulder (principal)
CPT/HCPCS: 99214

== ENCOUNTER 2023-03-24 16:38 | Outpatient (REF) | payer OTHER, SELFPAY ==
--- NOTE | ~2023-03-24 | XR_ITS ---
EXAMINATION: XR SHOULDER, RIGHT CLINICAL INFORMATION: Pain. COMPARISON: CT chest 04/08/2022. TECHNIQUE: Three views of the right shoulder. FINDINGS: The bones and soft tissues are normal. No fracture. Glenohumeral and acromioclavicular alignment is anatomic with normal joint space. No abnormal soft tissue calcifications. XR/XR shoulder RT min 2V IMPRESSION: Normal right shoulder.
== END 2023-03-24 16:39 | disposition home or self-care (01) ==
LOC: HO.HMGCX 16:38
PROVIDERS: Visit Provider Physician Assistant
DX: M25.511 Pain in right shoulder (principal)
CPT/HCPCS: 73030

== ENCOUNTER 2023-04-25 17:11 | Emergency (ER) | payer OTHER, SELFPAY ==
[2023-04-25 17:16] VITALS: BP 140/65; PULSE 68; RESP 18; TEMP 36.6; O2SAT 98; BMI 23.7
--- NOTE | 2023-04-25 17:16 | ED_ITS ---
HPI - General Adult General Chief complaint: Eye Problems Stated complaint: metal splinter in eye ? Time Seen by Provider: 04/25/23 20:00 Related Data Home Medications Medication Instructions Recorded Confirmed amlodipine 5 mg tablet 5 mg PO DAILY 08/22/20 aripiprazole 5 mg tablet 7.5 mg PO DAILY 08/22/20 cholecalciferol (vitamin D3) 50 50 mcg PO DAILY 08/22/20 mcg (2,000 unit) capsule lamotrigine 100 mg tablet,extended 100 mg PO DAILY 08/22/20 release 24 hr emtricitabine 200 mg-tenofovir 1 tab PO DAILY 02/10/21 alafenamide fumarate 25 mg tablet (Descovy) epinephrine 0.3 mg/0.3 mL IM 02/10/21 injection, auto-injector oxycodone-acetaminophen 7.5 mg-325 1 tab PO DAILY PRN 02/10/21 mg tablet lamotrigine 50 mg tablet,extended 0 mg PO 03/09/21 release 24 hr fluticasone propionate 50 1 - 2 spray intranasal DAILY PRN 03/18/22 mcg/actuation nasal spray,suspension loperamide 2 mg tablet 2 mg PO BID PRN diarrhea 03/18/22 (Anti-Diarrheal (loperamide)) paroxetine HCl 20 mg tablet 20 mg PO DAILY 03/18/22 cyclobenzaprine 10 mg tablet 10 mg PO DAILY PRN 06/15/22 atorvastatin 40 mg tablet 40 mg PO DAILY 03/24/23 hydroxyzine HCl 50 mg tablet 50 mg PO BEDTIME 03/24/23 Previous Rx's Medication Instructions Recorded ketorolac 0.5 % eye drops (Acular) 1 drp ophthalmic (eye) QID #5 mL 04/25/23 tobramycin 0.3 % eye drops 1 drp ophthalmic-Right Q4H #5 mL 04/25/23 Allergies Allergy/AdvReac Type Severity Reaction Status Date / Time bee pollen [BEE STINGS] Allergy Severe ANAPHYLAXIS Verified 03/24/23 16:07 varenicline [From Chantix] AdvReac Severe Agitated Verified 03/24/23 16:07 [facility] Past Medical History Medical History COPD (chronic obstructive pulmonary disease) Bronchitis Tobacco dependence Chest pain Dyspnea Mediastinal mass Abnormal PFTs (pulmonary function tests) Depressive disorder Anxiety Hypospadias in male Surgical History History of back surgery History of knee surgery Social History Social History Patient Tobacco Use Status: Current everyday Tobacco user Tobacco use type: Cigarette Years Smoked: Since 16 years old Advance Directives: No Advance Directives Information Provided: No Physical Exam ED Vital Signs: BMI result Body Mass Index 23.7 Course Course Course Narrative: RME performed by Dot Mendoza PA-C. Patient is a 52 year old assigned male at presenting to the emergency department with right eye pain. Patient was in his brother's garage while his brother was grinding metal and now sees a metal piece in his right eye. Patient placed back in the waiting room pending room availability. Patient seen and dispositioned by Dr. Recinos. Please refer to his note from 04/25/2023. Medications Administered Discontinued Medications Generic Name Dose Route Start Last Admin Trade Name Calli PRN Reason Stop Dose Admin Fluorescein Sodium 1 strip 04/25/23 17:18 04/25/23 18:55 Fluorescein Sodium Strip EYE-RIGHT 04/25/23 17:19 1 strip ONCE ONE Administration Tetracaine HCl 3 drop 04/25/23 17:18 04/25/23 18:55 Tetracaine Hcl/Pf 0.5% Oph Laureen 4 Ml Drops EYE-RIGHT 04/25/23 17:19 3 drop ONCE ONE Administration Tobramycin Sulfate 2 drop 04/25/23 20:19 04/25/23 20:27 Tobramycin Sulfate 0.3% Laureen Op 5 Ml Btl EYE-RIGHT 04/25/23 20:20 2 drop ONCE ONE Administration Discharge Plan Discharge Clinical Impression: Foreign body of right cornea with residual material Patient Disposition: Home, Self-Care Instructions: Eye Foreign Body (ED) Additional Instructions: Local care as advised Use antibiotic eyedrops to prevent infection Eyedrops for the pain as prescribed Follow-up with ophthalmology for recheck Prescriptions: New ketorolac [Acular] 0.5 % drops 1 drp ophthalmic (eye) QID Qty: 5 0RF tobramycin 0.3 % drops 1 drp ophthalmic-Right Q4H Qty: 5 0RF No Action atorvastatin 40 mg tablet 40 mg PO DAILY hydroxyzine HCl 50 mg tablet 50 mg PO BEDTIME lamotrigine 100 mg tablet extended release 24hr 100 mg PO DAILY aripiprazole 5 mg tablet 7.5 mg PO DAILY cholecalciferol (vitamin D3) 50 mcg (2,000 unit) capsule 50 mcg PO DAILY amlodipine 5 mg tablet 5 mg PO DAILY lamotrigine 50 mg tablet extended release 24hr 0 mg PO oxycodone-acetaminophen 7.5-325 mg tablet 1 tab PO DAILY PRN epinephrine 0.3 mg/0.3 mL auto-injector IM Descovy 200-25 mg tablet 1 tab PO DAILY loperamide [Anti-Diarrheal (loperamide)] 2 mg tablet 2 mg PO BID PRN (Reason: diarrhea) fluticasone propionate 50 mcg/actuation spray,suspension 1 - 2 spray intranasal DAILY PRN paroxetine HCl 20 mg tablet 20 mg PO DAILY cyclobenzaprine 10 mg tablet 10 mg PO DAILY PRN Referrals: Mat Castro [Physician] - 3 days Interventions: ED Discharge Assessment Last Done: 04/25/23 20:31 Discharge Date/Time: 04/25/23 20:32
[2023-04-25] MEDS: Tetracaine HCl/PF 0.5% Oph Sol 4 ML DROPS 3 DROP EYE-RIGHT (18:55)
[2023-04-25] MEDS: Fluorescein Sodium STRIP 1 STRIP EYE-RIGHT (18:55)
[2023-04-25 18:57] VITALS: BP 113/65; PULSE 62; RESP 18; TEMP 36.8; O2SAT 97
--- NOTE | 2023-04-25 20:25 | ED_ITS ---
HPI - Eye Problem General Chief complaint: Eye Problems Stated complaint: metal splinter in eye ? Time Seen by Provider: 04/25/23 20:00 Source: patient Mode of arrival: ambulatory Limitations: no limitations History of Present Illness HPI Narrative: Patient was apparently walking to the garage yesterday where his brother was grinding metal sudden noticed all metal dust went to his right eye came here with foreign body sensation in the right eye Related Data Home Medications Medication Instructions Recorded Confirmed amlodipine 5 mg tablet 5 mg PO DAILY 08/22/20 aripiprazole 5 mg tablet 7.5 mg PO DAILY 08/22/20 cholecalciferol (vitamin D3) 50 50 mcg PO DAILY 08/22/20 mcg (2,000 unit) capsule lamotrigine 100 mg tablet,extended 100 mg PO DAILY 08/22/20 release 24 hr emtricitabine 200 mg-tenofovir 1 tab PO DAILY 02/10/21 alafenamide fumarate 25 mg tablet (Descovy) epinephrine 0.3 mg/0.3 mL IM 02/10/21 injection, auto-injector oxycodone-acetaminophen 7.5 mg-325 1 tab PO DAILY PRN 02/10/21 mg tablet lamotrigine 50 mg tablet,extended 0 mg PO 03/09/21 release 24 hr fluticasone propionate 50 1 - 2 spray intranasal DAILY PRN 03/18/22 mcg/actuation nasal spray,suspension loperamide 2 mg tablet 2 mg PO BID PRN diarrhea 03/18/22 (Anti-Diarrheal (loperamide)) paroxetine HCl 20 mg tablet 20 mg PO DAILY 03/18/22 cyclobenzaprine 10 mg tablet 10 mg PO DAILY PRN 06/15/22 atorvastatin 40 mg tablet 40 mg PO DAILY 03/24/23 hydroxyzine HCl 50 mg tablet 50 mg PO BEDTIME 03/24/23 Previous Rx's Medication Instructions Recorded ketorolac 0.5 % eye drops (Acular) 1 drp ophthalmic (eye) QID #5 mL 04/25/23 tobramycin 0.3 % eye drops 1 drp ophthalmic-Right Q4H #5 mL 04/25/23 Allergies Allergy/AdvReac Type Severity Reaction Status Date / Time bee pollen [BEE STINGS] Allergy Severe ANAPHYLAXIS Verified 03/24/23 16:07 varenicline [From Chantix] AdvReac Severe Agitated Verified 03/24/23 16:07 Review of Systems 2 Review of Systems: Yes all other systems are reviewed and are negative [facility] Past Medical History Medical History COPD (chronic obstructive pulmonary disease) Bronchitis Tobacco dependence Chest pain Dyspnea Mediastinal mass Abnormal PFTs (pulmonary function tests) Depressive disorder Anxiety Hypospadias in male Surgical History History of back surgery History of knee surgery Social History Social History Patient Tobacco Use Status: Current everyday Tobacco user Tobacco use type: Cigarette Years Smoked: Since 16 years old Advance Directives: No Advance Directives Information Provided: No Physical Exam 2 Vital Signs: Vital Signs: Last Vital Signs Temp 98.2 F 04/25/23 18:57 Pulse 62 04/25/23 18:57 Resp 18 04/25/23 18:57 BP 113/65 04/25/23 18:57 Pulse Ox 97 04/25/23 18:57 O2 Del Method Room Air 04/25/23 18:57 BMI result Body Mass Index 23.7 Eyes: Eyes/upper lids images: 1. Small metal speck at 1 o'clock position anterior chamber normal Medications Administered Discontinued Medications Generic Name Dose Route Start Last Admin Trade Name Freq PRN Reason Stop Dose Admin Fluorescein Sodium 1 strip 04/25/23 17:18 04/25/23 18:55 Fluorescein Sodium Strip EYE-RIGHT 04/25/23 17:19 1 strip ONCE ONE Administration Tetracaine HCl 3 drop 04/25/23 17:18 04/25/23 18:55 Tetracaine Hcl/Pf 0.5% Oph Laureen 4 Ml Drops EYE-RIGHT 04/25/23 17:19 3 drop ONCE ONE Administration Procedures FB Removal Eye Time Out performed: Yes Location: eye (R) Topical anesthetic used: tetracaine Foreign body: metal Evidence of corneal penetration: Yes Technique: needle Procedure performed under: direct visualization with magnification Post-procedure medication: ophthalmic antibiotic and topical anesthetic Patient tolerated procedure: well Complications: residual rust ring Discharge Plan Discharge Clinical Impression: Foreign body of right cornea with residual material Patient Disposition: Home, Self-Care Instructions: Eye Foreign Body (ED) Additional Instructions: Local care as advised Use antibiotic eyedrops to prevent infection Eyedrops for the pain as prescribed Follow-up with ophthalmology for recheck Prescriptions: New ketorolac [Acular] 0.5 % drops 1 drp ophthalmic (eye) QID Qty: 5 0RF tobramycin 0.3 % drops 1 drp ophthalmic-Right Q4H Qty: 5 0RF No Action atorvastatin 40 mg tablet 40 mg PO DAILY hydroxyzine HCl 50 mg tablet 50 mg PO BEDTIME lamotrigine 100 mg tablet extended release 24hr 100 mg PO DAILY aripiprazole 5 mg tablet 7.5 mg PO DAILY cholecalciferol (vitamin D3) 50 mcg (2,000 unit) capsule 50 mcg PO DAILY amlodipine 5 mg tablet 5 mg PO DAILY lamotrigine 50 mg tablet extended release 24hr 0 mg PO oxycodone-acetaminophen 7.5-325 mg tablet 1 tab PO DAILY PRN epinephrine 0.3 mg/0.3 mL auto-injector IM Descovy 200-25 mg tablet 1 tab PO DAILY loperamide [Anti-Diarrheal (loperamide)] 2 mg tablet 2 mg PO BID PRN (Reason: diarrhea) fluticasone propionate 50 mcg/actuation spray,suspension 1 - 2 spray intranasal DAILY PRN paroxetine HCl 20 mg tablet 20 mg PO DAILY cyclobenzaprine 10 mg tablet 10 mg PO DAILY PRN Referrals: Mat Castro [Physician] - 3 days
[2023-04-25] MEDS: Tobramycin Sulfate 0.3% Sol Op 5 ML BTL 2 DROP EYE-RIGHT (20:27)
== END 2023-04-25 20:32 | disposition home or self-care (01) ==
PROVIDERS: Emergency Provider Internal Medicine; PCP Internal Medicine
DX: T15.01XA Foreign body in cornea, right eye, initial encounter (principal); S00.251A Superficial foreign body of right eyelid and periocular area, initial encounter; X58.XXXA Exposure to other specified factors, initial encounter; Y93.89 Activity, other specified; Y92.9 Unspecified place or not applicable; Y99.9 Unspecified external cause status
CPT/HCPCS: 99283

== ENCOUNTER 2023-08-04 10:07 | Outpatient (REF) | payer OTHER, SELFPAY ==
[2023-08-04 12:00] LABS: Estimated Glomerular Filt Rate > 60
[2023-08-04 12:11] LABS: Syphilis Screen Reactive (Nonreactive)
[2023-08-04 12:14] LABS: ~HepC Num1 0.07 S/CO (0.00-0.79); ~Hepatitis C Antibody Nonreactive (Nonreactive)
[2023-08-06 14:28] LABS: HIV RNA PCR Qn Copies NOT DETECTED copies/mL (NOT DETECTED); HIV RNA PCR Qn Log Copies NOT DETECTED (NOT DETECTED)
[2023-08-13 15:20] LABS: RPR Quantitative Non-Reactive (Nonreactive)
[2023-08-13 15:21] LABS: T.Pallidum Particle Agg Test Reactive (Nonreactive)
== END 2023-08-04 10:08 | disposition home or self-care (01) ==
LOC: HO.HHCL 10:07
PROVIDERS: Visit Provider Internal Medicine
DX: Z20.2 Contact with and (suspected) exposure to infections with a predominantly sexual mode of transmission (principal)
CPT/HCPCS: 36415; 82565; 86592; 86780; 86803; 87536

== ENCOUNTER 2024-06-25 14:15 | Outpatient (REF) | payer OTHER, SELFPAY ==
[2024-06-25 17:40] LABS: MANUAL DIFF FLAG NO
[2024-06-25 17:44] LABS: Basophils Absolute Auto 0.1 X10*3/uL (0.0-0.2); Basophils Percent Auto 0.6 % (0-2); Eosinophils Absolute Auto 0.2 X10*3/uL (0.0-0.4); Eosinophils Percent Auto 1.9 % (0-4); Hematocrit 47.6 % (42.0-52.0); Imm Gran Abs Auto 0.02 X10*3/uL (0.00-0.03); Imm Gran Pct Auto 0.2 % (0.0-0.4); Lymphocytes Absolute Auto 2.4 X10*3/uL (1.2-4.9); Lymphocytes Percent Auto 28.1 % (20-40); Mean Corpuscular HGB Conc 33.6 g/dl (31.0-36.0); Mean Corpuscular Hemoglobin 33.1 pg (27.0-33.0); Mean Corpuscular Volume 98.3 fL (80.0-98.0); Mean Platelet Volume 10.6 fL (9.4-12.4); Monocytes Absolute Auto 0.7 X10*3/uL (0.1-1.2); Monocytes Percent Auto 8.1 % (2-11); Neutrophils Absolute Auto 5.1 x10*3/uL (2.0-8.3); Neutrophils Percent Auto 61.1 % (45-73); Platelet Count 211 X10*3/uL (160-400); Red Blood Count 4.84 X10*6/uL (4.60-5.80); Red Cell Distribution Width 13.3 % (11.0-16.0); White Blood Count 8.4 X10*3/uL (4.8-10.8)
[2024-06-25 19:37] LABS: Alanine Aminotransferase 40 U/L (0-40); Albumin Level 4.3 g/dL (3.5-5.0); Anion Gap 14 (12-20); Aspartate Amino Transferase 30 U/L (5-37); Bilirubin Total 0.4 mg/dL (0.0-1.0); Blood Urea Nitrogen 14 mg/dL (9-16); Calcium 9.5 mg/dL (8.4-10.2); Carbon Dioxide 25 mmol/L (22-29); Chloride 107 mmol/L (96-108); Cholesterol 271 mg/dL (<200); Estimated Glomerular Filt Rate > 60; Glucose Random 98 mg/dL (60-115); HDL Cholesterol 57 mg/dL (>40); LDL Cholesterol Calculated 189 mg/dL (<100); Potassium 4.2 mmol/L (3.3-5.1); Sodium 142 mmol/L (135-145); TSH reflex Free T4 1.07 uIU/mL (0.32-4.0); Total Protein 7.1 g/dL (6.5-8.0); Triglycerides 129 mg/dL (<150)
[2024-06-25 20:19] LABS: Alkaline Phosphatase 100 U/L (39-117)
== END 2024-06-25 14:16 | disposition home or self-care (01) ==
LOC: HO.CHCLDS 14:15
PROVIDERS: Visit Provider Internal Medicine
DX: I10 Essential (primary) hypertension (principal); E78.00 Pure hypercholesterolemia, unspecified
CPT/HCPCS: 36415; 80053; 80061; 84443; 85025

== ENCOUNTER 2024-11-15 12:56 | Outpatient (AMB) | payer OTHER, SELFPAY ==
--- NOTE | 2024-11-15 13:04 | MHC.OFFVIS ---
Vital Signs 11/15/24 13:06 Height 5 ft 10 in Weight 170 lb BMI 24.4 BP 120/68 Blood Pressure Location Lt brachial Position Sitting Pulse 65 Pulse Source Monitor Intake Visit Reasons: [employer]/ [place]/ fatigue/cp Allergies bee pollen [BEE STINGS] Allergy (Severe, Verified 03/24/23 16:07) ANAPHYLAXIS varenicline [From Chantix] Adverse Reaction (Severe, Verified 03/24/23 16:07) Agitated Medication List - Last Reconciled 11/15/24 by José Katz MD atorvastatin 40 mg PO DAILY lamotrigine ER 100 mg PO DAILY oxycodone-acetaminophen 7.5-325 mg 1 tab PO DAILY PRN paroxetine HCl 30 mg PO DAILY HPI Comments Details: The patient is a 54-year-old male presenting with chest pain and fatigue. He describes non-exertional chest pain from the rib cage extending to the shoulders, increasing with certain activities but without a consistent pattern. He experiences frequent fatigue and tiredness, alongside shortness of breath when climbing stairs. He had a pulmonary evaluation and used an inhaler post-COVID. Apparently, used amlodipine for Raynaud's in the past but not taking it anymore. He also reports panic-like episodes at times. On statins for elevated lipids. However, he states he really does not take them regularly. [facility] Medical History COPD (chronic obstructive pulmonary disease) Bronchitis Tobacco dependence Chest pain Dyspnea Mediastinal mass Abnormal PFTs (pulmonary function tests) Depressive disorder Anxiety Hypospadias in male Surgical History History of back surgery History of knee surgery Family History (Updated 11/15/24 @ 13:16 by Marissa Forbes) Mother High blood pressure Father Liver cancer Diabetes Social History (Updated 11/15/24 @ 13:17 by Marissa Forbes) Alcohol intake: current Alcohol intake frequency: a few times a week Patient Tobacco Use Status: Current everyday Tobacco user Tobacco use type: Cigarette Years Smoked: Since 16 years old Review of Systems Const Reports fatigue and Denies weakness ENT Denies dizziness Card Denies chest pain, Reports chest pain with activity, Denies syncope, Denies rapid heart rate, Denies pedal edema, Denies edema, Denies leg edema, Denies lightheadedness, Denies palpitations, Denies dyspnea, Denies dyspnea on exertion and Denies orthopnea Resp Denies cough, Denies dyspnea and Denies dyspnea on exertion GI Denies hematochezia and Denies change in stool character Musc Denies abnormal gait, Denies muscle cramps, Denies muscle weakness, Reports numbness, Denies radiating pain into limb and Denies tingling Neuro Denies abnormal gait, Denies dizziness, Denies syncope, Reports numbness, Denies tingling and Denies weakness Endo Reports fatigue and Denies palpitations Physical Exam Vital Signs: Last Vital Signs Pulse 65 11/15/24 13:06 BP 120/68 11/15/24 13:06 BMI result Body Mass Index 24.4 Const General: comfortable and no acute distress Orientation/consciousness: patient oriented x3 HEENT Other: Unremarkable Head: Yes normal to inspection Neck Neck: Yes normal visual inspection Chest Chest palpation & inspection: normal inspection of the chest Resp Auscultation: clear to auscultation bilaterally Cardio Palpation: normal PMI Heart sounds: S1 normal heart sound present, S2 normal heart sound present, no gallops, no murmurs and no rubs GI Palpation (GI): Soft to palpation Back/Spine/Pelvis Other: unremarkable Skin General skin exam: no rashes or lesions noted Neuro General: patient oriented x3 Extrem General: Yes normal to inspection Psych Mental Status: mental status grossly normal Office Procedures EKG Details: EKG with underlying sinus rhythm at 65/Min; nonspecific inferior changes; [place] [id number]-[id number], Complete Assessment & Plan Assessment & Plan (1) Chest pain: Code(s): R07.9 - Chest pain, unspecified Category: Medical Plan Smoker, hyperlipidemia, atypical sounding chest pains, fatigue, short of breath. We will perform comprehensive workup to assess for any cardiomyopathy as well as coronary artery disease. We will start with an echocardiogram and coronary CTA. Based on the findings, we will optimize care. Discussion Notes During the consultation, I explained the rationale for a cardiac evaluation through heart ultrasound and CAT scan to check cardiac function and assess for blockages. I emphasized the benefits of further testing due to atypical nature of chest pain and patient's significant fatigue. The potential risks of these diagnostic tests, such as radiation exposure from a CAT scan, were discussed, along with the absence of allergies indicating suitability for these procedures. We acknowledged the need for ongoing monitoring of cholesterol levels. The patient consented to all proposed plans after understanding the discussion. Patient was informed and verbally consented to the use of an ambient scribe for clinic note documentation during this visit. Orders: Orders CA echo transthoracic complete Today R07.9 - Chest pain, unspecified CT Cardiac Coronary Angio Today I25.10 - Atherosclerotic heart disease of [place] coronary artery without angina pectoris, R07.9 - Chest pain, unspecified Basic Metabolic Panel Today R07.9 - Chest pain, unspecified Patient Instructions: - Continue taking cholesterol medication as prescribed. - Follow up with heart ultrasound and CAT scan appointments. - Report any severe or worsening chest pain immediately. - Ensure to maintain hydration and balanced diet for overall health management. Coding Level of Care Code New Pt Level 4 (36139) Complex EM visit Add On G2211 Diagnoses Chest pain R07.9 CPT Codes EKG - CPT: 08074-[id number], Complete ([id number])
[2024-11-15 13:06] VITALS: BP 120/68; PULSE 65; BMI 24.4
--- OUTSIDE RECORDS SUMMARY | 2024-11-15 15:02 | XMS_ITS | Encounter Summary ---
Author Organization [employer] Address [address] [place] [address] Care Team Providers Care Distiller Name Role Phone Mariella Vanegas MD Primary Care Provider Encounter Details Date Type Department Care Team ([facility] Contact Info) Description 01/26/2023 Orders Only [facility] MED & PEDS [address] [place] [address] Mariella Vanegas MD [address] [place] [address] Screening for STD (sexually transmitted disease) (Primary Dx); Hypercholesterolemia Social History Tobacco Use Types Packs/Day Years Used Date Smoking Tobacco: Every Day Cigarettes Smokeless Tobacco: Never Sex and Gender Information Value Date Recorded Sex Assigned at Male 04/12/2022 10:21 AM EDT Legal Sex Male 10:21 AM EDT Gender Identity Male 04/12/2022 10:21 AM EDT Sexual Orientation Lesbian or Parker 04/12/2022 10 :21 AM EDT documented as of this encounter Plan of Treatment Upcoming Encounters Date Type Department Care Team (Late Contact Info) Description 12/06/2024 10:00 AM EDT Clinical Support [facility] MED & PEDS [address] [place] [address] 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 RN [address] [place], [place] [phone] 01/22/2025 10:15 AM EDT Office Visit [facility] MED & PEDS [address] [place] [address] Mariella Vanegas MD [address] [place] [address] documented as of this encounter Visit Diagnoses Diagnosis Screening for STD (sexually transmitted disease)- Primary Hypercholesterolemia Pure hypercholesterolemia documented in this encounter Care Teams Distiller Relationship Specialty Start Date End Date Mariella Vanegas MD [address] [place] [address] PCP - General Internal Medicine 06/13/18 documented as of this encounter
== END 2024-11-15 13:40 | disposition home or self-care (01) ==
LOC: HO.HCS 12:57
PROVIDERS: PCP Internal Medicine; Visit Provider Internal Medicine
DX: R07.9 Chest pain, unspecified (principal)
CPT/HCPCS: 93010; 99204; G2211

== ENCOUNTER → 2024-11-15 12:56 | Outpatient (BNVA) | payer OTHER, SELFPAY | PROVIDERS: PCP Internal Medicine; Visit Provider Internal Medicine | DX: I25.10 Atherosclerotic heart disease of native coronary artery without angina pectoris (principal); R07.9 Chest pain, unspecified; F17.210 Nicotine dependence, cigarettes, uncomplicated | CPT/HCPCS: 93005; 99202 ==

== ENCOUNTER → 2024-12-12 12:53 | Outpatient (REF) | payer OTHER, SELFPAY ==
--- NOTE | 2024-12-12 12:55 | CA_ITS ---
Transthoracic Echocardiogram Patient (Last, First, Middle): Violette Ovalle L Gender: Male Date of : 1970 Age: 54 Procedure Date: 12/12/2024 Procedure Type: Transthoracic Echocardiogram Location: OP Height: 177.8 cm Weight: 77.11 kg BSA: 1.95 m2 Heart Rate: bpm BP: 120 / 74 mmHg Mental Health Technician: TO Referring MD: José Katz MD Snagger: Emeterio Fernandez MD Symptoms: R07.9 - Chest pain, unspecified Study Quality: Adequate ECG Rhythm: Sinus Conclusions: - Essentially normal study Findings Left Ventricle Normal left ventricular cavity size. There is normal left ventricular wall thickness. The left ventricular systolic function is low normal. The visually estimated ejection fraction is between 50-55%. Diastolic function is normal for age. Peak GLS is -19.8%, within normal limits. Right Ventricle Normal right ventricular cavity size and systolic function. Atria The left atrium is likely dilated. There is no evidence of interatrial shunt. The right atrium is normal in size. Aortic Valve Normal aortic valve structure and function. There is no aortic valve stenosis. There is no aortic valve regurgitation. Mitral Valve Normal mitral valve structure and function. There is trace mitral valve regurgitation. There is no mitral valve stenosis. Pulmonic Valve The pulmonic valve is likely normal. There is trace pulmonic valve regurgitation. Tricuspid Valve Normal tricuspid valve structure. Tricuspid regurgitation envelope is inadequate for calculation of right ventricular systolic pressure. Normal right atrial pressure. Great Vessels The pulmonary artery was not well visualized. There is no dilatation of the ascending aorta measuring 2.80 cm. Venous The inferior vena cava is normal in size and collapses greater than 50% with inspiration. Pericardium/Pleural There is no evidence of pericardial effusion. Measurements 2D Linear Measurements IVSd: 0.76 0.6-0.9/0.6-1.0 cm LVIDd: 4.71 3.9-5.3/4.2-5.9 cm LVIDd Index: 2.42 2.4-3.2/2.2-3.1 cm/m2 LVIDs: 3.43 2.0-3.6 cm LVPWd: 0.70 0.7-1.1 cm LA Diam: 3.30 2.7-3.8/3.0-4.0 cm LAIDs Index: 1.69 1.5-2.3 cm/m2 LV Mass: 136.09 67-162/88-224 g LV Mass Index: 69.79 43-95/49-115 g/m2 LVOT Diam: 2.40 3.0+(-)1.3 cm 2D Systolic Function EF 4C: 52.80 >55% EF 2C: 52.00 >55% EF BiP: 53.20 >55% Mitral Valve MV Pk E: 0.46 MV PK A: 0.34 MV Decel Time: 240.00 E/A: 1.40 E'Lateral: 12.10 E'Medial: 8.49 E/E' Med: 5.40 E/E' Lat: 3.80 PHT: 70.00 MVA PHT: 3.14 Decel Conecuh: 1.91 Aortic Valve AoV Pk Jackson: 1.02 AoV Mn Jackson: 0.70 AoV VTI: 0.24 AoV Pk Grad: 4.00 Aov Mn Grad: 2.00 RONNELL Cont.VTI: 3.78 LVOT LVOT Pk Jackson: 1.01 LVOT Mn Jackson: 0.61 LVOT VTI: 0.20 LVOT Pk Grad: 4.00 LVOT Mn Grad: 2.00 LVOT Diam: 2.40 LVOT Area: 4.52 Diastolic Function MV Pk E: 0.46 MV Pk A: 0.34 E/A: 1.40 E'Medial: 8.49 E/E' Med: 5.40 E' Laterial: 12.10 E/E' Lat: 3.80 Right Ventricle TAPSE (mm): 23.00 TVS' Jackson: 10.40 Tricuspid Valve RA Press: 3.00 Great Vessels Aorta Sinus of Valsalva: 3.18 2.0-3.5 cm Ao Asc: 2.80 2.1-3.4 cm Updated in Other Vendor System with Status of Final Emeterio Fernandez MD electronically signed on 12/13/2024 9:58:41 AM with status of Final
--- OUTSIDE RECORDS SUMMARY | 2024-12-12 13:22 | XMS_ITS | Encounter Summary ---
Author Organization [employer] Address [address] [facility] [address] [place] [address] Care Team Providers Care Shine Worker Name Role Phone Mariella Vanegas MD Primary Care Provider Encounter Details Date Type Department Care Team ([facility] Contact Info) Description 01/26/2023 Orders Only [facility] MED & PEDS [address] [place] [address] Mariella Vanegas MD [address] [place] [address] Screening for STD (sexually transmitted disease) (Primary [...] Department Care Team (Late Contact Info) Description 01/09/2025 11:00 AM EDT Clinical Support [facility] MED & PEDS [address] [place] [address] 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 RN [address] [place], [place] [phone] 01/22/2025 10:15 AM EDT Office Visit [facility] MED & PEDS [address] [place] [address] Mariella Vanegas MD [address] [place] [address] documented as of this encounter Visit Diagnoses Diagnosis Screening for STD (sexually transmitted disease)- Primary Hypercholesterolemia Pure hypercholesterolemia documented in this encounter Care Teams Shine Worker Relationship Specialty Start Date End Date Mariella Vanegas MD [address] [place] [address] PCP - General Internal Medicine 06/13/18 documented as of this encounter
== END ==
LOC: HO.CARD 12:53
PROVIDERS: Visit Provider Internal Medicine
DX: R07.9 Chest pain, unspecified (principal)
CPT/HCPCS: 93306

== ENCOUNTER → 2024-12-12 12:55 | Outpatient (BNV) | payer OTHER, SELFPAY | PROVIDERS: Visit Provider Internal Medicine Cardiovascular Disease | DX: R07.9 Chest pain, unspecified (principal) | CPT/HCPCS: 93306; 93356 ==

== ENCOUNTER 2025-01-22 10:31 | Outpatient (REF) | payer OTHER, SELFPAY ==
--- OUTSIDE RECORDS SUMMARY | 2025-01-22 11:36 | XMS_ITS | Encounter Summary ---
Author Organization [employer] Address [address] [facility] [address] [place] [address] Care Team Providers Care Unit Coordinator Name Role Phone Mariella Vanegas MD Primary Care Provider [phone] Encounter Details Date Type Department Care Team ([facility] Contact Info) Description 01/26/2023 Orders Only [facility] [place] MED & PEDS [address] [place], [place] [phone] Mariella Vanegas MD [address] [place], [place] [phone] Screening for STD (sexually transmitted disease) (Primary [...] Department Care Team (Late Contact Info) Description 04/08/2025 11:00 AM EDT Telemedicine [facility] [place] MED & PEDS [address] [place], [place] [phone] 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 RN [address] [place], [place] [phone] documented as of this encounter Visit Diagnoses Diagnosis Screening for STD (sexually transmitted disease)- Primary Hypercholesterolemia Pure hypercholesterolemia documented in this encounter Care Teams Unit Coordinator Relationship Specialty Start Date End Date Mariella Vanegas MD [address] [place] [id number] PCP - General Internal Medicine 06/13/18 documented as of this encounter
[2025-01-22 14:01] LABS: Appearance Urine Clear; Glucose Urine UA 100 mg/dL (Negative); PH 5.5 (5.0-9.0); Specific Gravity - Urine 1.025 (1.005-1.025)
[2025-01-22 14:04] LABS: MANUAL DIFF FLAG NO
[2025-01-22 14:21] LABS: Hematocrit 47.1 % (42.0-52.0); Hemoglobin 15.8 g/dl (14.0-18.0); Imm Gran Abs Auto 0.02 X10*3/uL (0.00-0.03); Imm Gran Pct Auto 0.3 % (0.0-0.4); Lymphocytes Absolute Auto 2.4 X10*3/uL (1.2-4.9); Mean Corpuscular HGB Conc 33.5 g/dl (31.0-36.0); Mean Corpuscular Hemoglobin 32.3 pg (27.0-33.0); Mean Corpuscular Volume 96.3 fL (80.0-98.0); NRBC Abs Auto 0.000 X10*3/uL (0.0-0.012); NRBC Pct Auto 0.0 /100WBC (0.0-0.2); Platelet Count 207 X10*3/uL (160-400); Red Blood Count 4.89 X10*6/uL (4.60-5.80); White Blood Count 7.3 X10*3/uL (4.8-10.8)
[2025-01-22 14:42] LABS: Hemoglobin A1C 166.3478 umol/L; PSA,Total (Free>4and<10) 0.91 ng/mL (0.00-4.00); Total Hemoglobin (HGBA1C) 4265.5909 umol/L
[2025-01-22 14:51] LABS: Alanine Aminotransferase 44 U/L (0-40); Albumin Level 4.6 g/dL (3.5-5.0); Alkaline Phosphatase 114 U/L (39-117); Anion Gap 14 (12-20); Aspartate Amino Transferase 30 U/L (5-37); Blood Urea Nitrogen 17 mg/dL (9-16); Calcium 9.3 mg/dL (8.4-10.2); Carbon Dioxide 24 mmol/L (22-29); Chloride 109 mmol/L (96-108); Estimated Glomerular Filt Rate > 60; Potassium 4.1 mmol/L (3.3-5.1); Sodium 143 mmol/L (135-145); Total Protein 6.9 g/dL (6.5-8.0)
[2025-01-22 14:59] LABS: Folate 6.5 ng/mL (> or = 4.0); Vitamin B12 426 pg/mL (200-900)
== END 2025-01-22 10:32 | disposition home or self-care (01) ==
LOC: HO.CHCLDS 10:31
PROVIDERS: Visit Provider Internal Medicine
DX: M54.2 Cervicalgia (principal); R53.83 Other fatigue; R35.0 Frequency of micturition
CPT/HCPCS: 36415; 80053; 81001; 82306; 82607; 82746; 83036; 84153; 84443; 85025

== ENCOUNTER 2025-01-25 12:31 | Outpatient (REF) | payer OTHER, SELFPAY ==
--- OUTSIDE RECORDS SUMMARY | 2025-01-25 12:33 | XMS_ITS | Encounter Summary ---
Author Organization [employer] Address [address] [place] [address] Care Team Providers Care Radiology Resident Name Role Phone Mariella Vanegas MD Primary Care Provider [phone] Reason for Visit * Reason Onset Date Comments Results 01/25/2025 Lab Orders 01/25/2025 Encounter Details Date Type Department Care Team (Latest Contact Info) Description 01/25/2025 Results Follow-Up [facility] [address] [place] [address] Tita Castro RN CBC auto differential, Comprehensive Metabolic Panel, Vitamin D, 25-Hydroxy, Total, Immunoassay, Additional followed-up results: 5 Social History Tobacco Use Types Packs/Day Years Used Date Smoking Tobacco: Every Day Cigarettes Smokeless Tobacco: Never Alcohol Use Standard Drinks/Week Comments Yes 0 (1 standard drink = 0.6 oz pur e alcohol) twice a week Alcohol Answer Date Recorded How often do you have a drink containing alcohol ? 2 08/13/2024 How many drinks containing a lcohol do you have on a typical day when you are drinking? 0 08/13/2024 How often do you have six or more drinks on one occasion? 0 08/13/2024 Depression Answer Date Recorded Patient Health Questionnaire-9 Score 14 01/22/2025 Patient Health Questionnaire-9 Score 14 01/22/2025 Last PHQ-9: Questionnaire Data Not on file 0 01/22/2025 Housing Stability Answer Date Recorded What is your housing situation today? I have geraldine craft 07/27/[address] you li ve. Do you have problems with any of the following? None of the above 07/27/2024 Food Insecurity Answer Date Recorded Within the past 12 months, y ou worried that your food would run out before you got money to buy more: Never True 07/27/2024 Within the past 12 months,th e food you bought just didn't last and you didn't have enough money to get more: Never True Transportation Answer Date Recorded In the past 12 months, has l ack of transportation kept you from medical appts, meetings, work or from getting things needed for daily living? No 07/27/2024 Utilities Answer Date Recorded In the past 12 months, has t he electric, gas, oil or water company threatened to shut off services in your home? No 07/27/2024 Depression Answer Date Recorded Patient Health Questionnaire-2 Score 3 01/22/2025 Internet Access Answer Date Recorded Internet Access Q1 Yes 07/27/2024 Internet Access Q2 Not on file 07/27/2024 Sex and Gender Information Value Date Recorded Sex Assigned at Male 04/12/2022 10:21 AM EDT Legal Sex Male 10:21 AM EDT Gender Identity Male 04/12/2022 10:21 AM EDT Sexual Orientation Lesbian or Parker 04/12/2022 10 :21 AM EDT documented as of this encounter Miscellaneous Notes * Telephone Encounter - Tita Castro RN - 01/25/2025 9:47 AM EDT TC to pt. RN explained lab results, the need for additional labs, and an ultrasound. Rn explained he does not need an appointment for the lab work and that someone should call him for the ultrasound.Pt verbalized understanding with plan of care and asked if there is anything he should be worried about at the moment. RN comforted pt and told him not to worry until we have the complete workup back. Pt verbalized understanding and agreement with the plan of care. ----- Message from Mariella Vanegas MD sent at 01/25/2025 9:30 AM EDT ----- Please call. Labs reviewed: 1) presence of glucose in the urine (glucosuria). I recommend to repeat the urine test to assess ifit is not a lab error. 2) transaminitis. Workup is ordered for patient to complete. ----- Message ----- From: Interface, Lab Results In Sent: 01/22/2025 2:03 PM EDT To: Mariella Vanegas MD documented in this encounter Plan of Treatment Upcoming Encounters Date Type Department Care Team (Late st Contact Info) Description 04/08/2025 11:00 AM EDT Telemedicine [facility] & PEDS [address] [place] [address] 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 RN [address] [place] [address] documented as of this encounter Visit Diagnoses Not on filedocumented in this encounter Additional Health Concerns Assessment Noted Time PHQ-9 Depression Total Score: 14 025 10:30 AM EDT documented as of this encounter Care Teams Radiology Resident Relationship Specialty Start Date End Date Mariella Vanegas MD [address] [place] [address] PCP - General Internal Medicine 06/13/18 documented as of this encounter
[2025-01-25 14:36] LABS: INTERNATIONAL NORM RATIO 1.0 (0.9-1.1); Prothrombin Time 11.0 SEC (10.9-12.4)
[2025-01-25 14:52] LABS: Iron 111 mcg/dL (45-160); Percent Iron Saturation 34 % (15-50); Total Iron Binding Capacity 325 mcg/dL (228-428); Unsaturated Iron Binding 214 ug/dL
[2025-01-25 14:58] LABS: Ferritin 103 ng/mL (20-250)
[2025-01-26 08:31] LABS: HBS Num1 0.00 mIU/mL (0-7.99); HBc Num1 0.05 S/CO (0.00-0.79); HBsAGNum1 0.45 S/CO (0.00-0.99); Hepatitis A Antibody IgM 0.17 Index (0-0.79); Hepatitis B Surface Antigen Negative (Negative); ~HepC Num1 0.07 S/CO (0.00-0.79); ~Hepatitis A Antibody IgM Nonreactive (Nonreactive); ~Hepatitis B Surface Antibody NONREACTIVE (Nonreactive); ~Hepatitis C Antibody Nonreactive (Nonreactive)
== END 2025-01-25 12:32 | disposition home or self-care (01) ==
LOC: HO.CHCLDS 12:31
PROVIDERS: Visit Provider Internal Medicine
DX: R74.01 Elevation of levels of liver transaminase levels (principal); Z11.59 Encounter for screening for other viral diseases
CPT/HCPCS: 36415; 82728; 82784; 83540; 85610; 86704; 86706; 86709; 86803; 87340

== ENCOUNTER 2025-02-14 12:48 | Outpatient (AMB) | payer OTHER, SELFPAY ==
[2025-02-14 12:57] VITALS: BP 124/68; PULSE 74; BMI 25.0
--- NOTE | 2025-02-14 12:57 | A.OFFVIS_ITS ---
Vital Signs 02/14/25 12:57 Height 5 ft 10 in Weight 174 lb 2.643 oz BMI 25.0 BP 124/68 Blood Pressure Location Lt brachial Position Sitting Pulse 74 Pulse Source Pulse Oximeter Intake Visit Reasons: 3 month f/up echo cta Allergies bee pollen (BEE STINGS) Allergy (Severe, Verified 03/24/23 16:07) ANAPHYLAXIS varenicline (From Chantix) Adverse Reaction (Severe, Verified 03/24/23 16:07) Agitated Medication List - Last Reconciled 02/14/25 by José Katz MD atorvastatin 40 mg PO DAILY lamotrigine ER 100 mg PO DAILY oxycodone-acetaminophen 7.5-325 mg 1 tab PO DAILY PRN paroxetine HCl 30 mg PO DAILY HPI Comments Details: Violette returns for follow-up. Recently seen in consultation regarding chest pain and fatigue. Nonexertional chest pains from the ribcage extending into the shoulders increasing with certain activities but without any consistent patterns. Nonspecific fatigue. Some shortness of breath climbing stairs. He underwent further workup with a coronary CTA and an echocardiogram returns for follow-up. Overall, he generally feels okay. He occasionally feels some fluttering in the chest and he is concerned if he is having any arrhythmia. [facility] Medical History COPD (chronic obstructive pulmonary disease) Bronchitis Tobacco dependence Chest pain Dyspnea Mediastinal mass Abnormal PFTs (pulmonary function tests) Depressive disorder Anxiety Hypospadias in male Surgical History History of back surgery History of knee surgery Family History (Updated 11/15/24 @ 13:16 by Marissa Forbes) Mother High blood pressure Father Liver cancer Diabetes Social History (Updated 11/15/24 @ 13:17 by Marissa Forbes) Alcohol intake: current Alcohol intake frequency: a few times a week Patient Tobacco Use Status: Current everyday Tobacco user Tobacco use type: Cigarette Years Smoked: Since 16 years old Review of Systems Const Reports fatigue and Denies weakness ENT Denies dizziness Card Denies chest pain with activity, Denies syncope, Denies rapid heart rate, Denies pedal edema, Denies edema, Denies leg edema, Denies lightheadedness, Denies palpitations, Denies dyspnea, Denies dyspnea on exertion and Denies orthopnea Resp Denies cough, Denies dyspnea and Denies dyspnea on exertion GI Denies hematochezia and Denies change in stool character Musc Denies abnormal gait, Reports myalgias, Denies muscle cramps, Denies muscle weakness, Reports numbness, Denies radiating pain into limb and Reports tingling Neuro Denies abnormal gait, Denies dizziness, Denies syncope, Reports numbness, Reports tingling and Denies weakness Endo Reports fatigue and Denies palpitations Physical Exam Vital Signs: Last Vital Signs Pulse 74 02/14/25 12:57 BP 124/68 02/14/25 12:57 BMI result Body Mass Index 25.0 Const General: comfortable and no acute distress Orientation/consciousness: patient oriented x3 HEENT Other: Unremarkable Head: Yes normal to inspection Neck Neck: Yes normal visual inspection Chest Chest palpation & inspection: normal inspection of the chest Resp Auscultation: clear to auscultation bilaterally Cardio Palpation: normal PMI Heart sounds: S1 normal heart sound present, S2 normal heart sound present, no gallops, no murmurs and no rubs GI Palpation (GI): Soft to palpation Back/Spine/Pelvis Other: unremarkable Skin General skin exam: no rashes or lesions noted Neuro General: patient oriented x3 Extrem General: Yes normal to inspection Psych Mental Status: mental status grossly normal Assessment & Plan Assessment & Plan (1) Chest pain: Code(s): R07.9 - Chest pain, unspecified Category: Medical Plan In the coronary CTA, no evidence of CAD. Incidental finding of patent foramina ovale. Also, no significant noncardiac findings. In the echocardiogram, LVEF is 50-55%. Normal peak global longitudinal strain. Otherwise unremarkable. Normal findings discussed with patient. Mainly reassurance. The pains could be musculoskeletal. With regard to his concern for palpitations, obtain a Holter monitor. If any concerning findings, we can readdress. Discussion Notes I discussed with the patient that cardiac evaluations showed no blockages or structural heart issues. We talked about the palpitations, which occurs two to three times daily, and I explained that a certified tumor registrar will be ordered to further evaluate this condition. Patient was informed and verbally consented to the use of an ambient scribe for clinic note documentation during this visit. Orders: Orders ECG 3 day holter monitor Today R00.2 - Palpitations Patient Instructions: - Monitor for any new or worsening symptoms and report them immediately. - Await contact to set up cardiac monitoring. - Follow up as advised after monitoring results are available. Coding Level of Care Code Est Pt Level 3 (21695) Diagnoses Chest pain R07.9
--- OUTSIDE RECORDS SUMMARY | 2025-02-14 14:02 | XMS_ITS | Encounter Summary ---
Author Organization [employer] Address [address] [facility] [address] [facility] [address] [place] [address] Care Team Providers Care Machine Lead Burner Name Role Phone Mariella Vanegas MD Primary Care Provider [phone] Encounter Details Date Type Department Care Team ([facility] st Contact Info) Description 08/04/[address] [facility]S [address] [place], [place] [phone] Mariella Vanegas MD [address] [place] [address] Encounter for HIV pre-exposure prophylaxis (Primary Dx) Social History Tobacco Use Types Packs/Day Years Used Date Smoking Tobacco: Every Day Cigarettes Smokeless Tobacco: Never Alcohol Use Standard Drinks/Week Comments Yes 0 (1 standard drink = 0.6 oz pur e alcohol) twice a week Depression Answer Date Recorded Patient Health Questionnaire-9 Score 1 02/04/2023 Housing Stability Answer Date Recorded What is your housing situation today? I have geraldine craft 03/28/[address] you li ve. Do you have problems with any of the following? None of the above 03/28/2023 Food Insecurity Answer Date Recorded Within the past 12 months, y ou worried that your food would run out before you got money to buy more: Never True 03/28/2023 Within the past 12 months,th e food you bought just didn't last and you didn't have enough money to get more: Never True Transportation Answer Date Recorded In the past 12 months, has l ack of transportation kept you from medical appts, meetings, work or from getting things needed for daily living? No 03/28/2023 Utilities Answer Date Recorded In the past 12 months, has t he electric, gas, oil or water company threatened to shut off services in your home? No 03/28/2023 Depression Answer Date Recorded Patient Health Questionnaire-2 Score 1 02/04/2023 Sex and Gender Information Value Date Recorded Sex Assigned at Male 04/12/2022 10:21 AM EDT Legal Sex Male 10:21 AM EDT Gender Identity Male 04/12/2022 10:21 AM EDT Sexual Orientation Lesbian or Parker 04/12/2022 10 :21 AM EDT documented as of this encounter Plan of Treatment Upcoming Encounters Date Type Department Care Team (Late st Contact Info) Description 04/08/2025 11:00 AM EDT Telemedicine [facility] MED & PEDS [address] [place] [address] 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 RN [address] [place] [address] documented as of this encounter Procedures Procedure Name Priority Date/Time Associated Diagnosis Comments CONFIRMATORY SYPHILIS PROFILE Routine 08/04/2023 10:09 AM EST Encounter for HIV pre-exposure prophylaxis documented in this encounter Results * (ABNORMAL) Confirmatory Syphilis Profile (08/04/2023 10:09 AM EST) Rapid Plasma Reagin, Quant Non-React omid Nonreactive [facility] Treponema pallidum Antibody, Particle Agglutination Reactive( A) Nonreactive [facility] 08/04/2023 10:0 9 AM EST 08/04/2023 12:10 PM EST us Mariella Vanegas MD LAB BLOOD ORDERABLES Final Result [facility] [address] [place] [address] [phone] documented in this encounter Visit Diagnoses Diagnosis Encounter for HIV pre-exposure prophylaxis- Primary documented in this encounter Additional Health Concerns Assessment Noted Time PHQ-9 Depression Total Score: 1 02/05/20 23 3:35 PM EDT documented as of this encounter Care Teams Machine Lead Burner Relationship Specialty Start Date End Date Mariella Vanegas MD [address] [place] [phone] PCP - General Internal Medicine 06/13/18 documented as of this encounter
--- OUTSIDE RECORDS SUMMARY | 2025-02-14 14:02 | XMS_ITS | Encounter Summary ---
Author Organization [employer] Address [address] [facility] [address] [place] [address] Care Team Providers Care Supervisor Felling Bucking Name Role Phone Mariella Vanegas MD Primary Care Provider [phone] Encounter Details Date Type Department Care Team (Late st Contact Info) Description 05/10/2022 Abstract [facility] [address] [place] [address] ProviderRupa MD Social History Tobacco Use Types Packs/Day Years Used Date Smoking Tobacco: Never Assessed Sex and Gender Information Value Date Recorded Sex Assigned at Male 04/12/2022 10:21 AM EDT Legal Sex Male 10:21 AM EDT Gender Identity Male 04/12/2022 10:21 AM EDT Sexual Orientation Lesbian or Parker 04/12/2022 10 :21 AM EDT documented as of this encounter Plan of Treatment Upcoming Encounters Date Type Department Care Team (Late st Contact Info) Description 04/08/2025 11:00 AM EDT Telemedicine [facility]S [address] [place] [address] 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 RN [address] [place] [address] documented as of this encounter Visit Diagnoses Not on filedocumented in this encounter Care Teams Supervisor Felling Bucking Relationship Specialty Start Date End Date Mariella Vanegas MD [address] [place] [address] PCP - General Internal Medicine 06/13/18 documented as of this encounter
--- OUTSIDE RECORDS SUMMARY | 2025-02-14 14:02 | XMS_ITS | Encounter Summary ---
Author Organization [employer] Address [address] [facility] [address] [place] [address] Care Team Providers Care Pattern Keeper Name Role Phone Mariella Vanegas MD Primary Care Provider [phone] Reason for Referral * Imaging (Routine) - Authorized Specialty Diagnoses / Procedures Referred By Contac t Referred To Contact Radiology Diagnoses Transaminitis Procedures US Abdomen Comp w elastography Mariella Vanegas MD [address] [place] [address] Phone: tel: fax: [address] Phone: tel: fax: Referral ID Status Reason Start Date Expiration Date V isits Requested Visits Authorized [id number] Authorized 01/25/2025 01/25/2026 1 1 Encounter Details Date Type Department Care Team (Late st Contact Info) Description 01/25/2025 Orders Only [facility] [address] [place], [place] [phone] Mariella Vanegas MD [address] [place] [address] Transaminitis (Primary Dx); Glucosuria with normal serum glucose Social History Tobacco Use Types Packs/Day Years [...] Description 04/08/2025 11:00 AM EDT Telemedicine [facility] [address] [place] [address] 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, JOSE [address] [place] [address] Scheduled Orders Name Type Priority Associated Diagnoses Orde r Schedule Hepatitis B Surface Antibody, Qualitative Lab Routine Transaminitis Expected: 01/25/2025 (Approximate), Expires: 01/25/2026 US Abdomen Comp w elastography Imaging Routine Transaminitis Expected: 01/25/2025, Expires: 01/25/2026 Smooth Muscle Antibody with Reflex to Titer Lab Routine Transaminitis Expected: 01/25/2025 (Approximate), Expires: 01/25/2026 Alpha 1 Antitrypsin Lab Routine Transaminitis Expected: 01/25/2025 (Approximate), Expires: 01/25/2026 BLOOD GLUCOSE LEVEL TEST Dental Routine Glucosuria with normal serum glucose Ordered: 01/25/2025 Urinalysis, Complete, with Reflex to Culture Lab Routine Glucosuria with normal serum glucose Expected: 01/25/2025 (Approximate), Expires: 01/25/2026 documented as of this encounter Procedures Procedure Name Priority Date/Time Associated Diagnosis Comments HEPATITIS PANEL, GENERAL Routine 01/25/2025 12:37 PM EDT Transaminitis IRON AND TOTAL IRON BINDING CAPACITY Routine 01/25/2025 12:37 PM EDT Transaminitis PROTHROMBIN TIME-INR Routine 01/25/2025 12:37 PM EDT Transaminitis IMMUNOGLOBULINS, QUANTITATIVE, IGA, IGG, IGM Routine 01/25/2025 12:37 PM EDT Transaminitis FERRITIN Routine 01/25/2025 12:37 PM EDT Transaminitis documented in this encounter Results * Hepatitis Panel, General (01/25/2025 12:37 PM EDT) Hepatitis A IgM Nonreactive Nonreactive [facility] Comment:IgM antibodies to DIAZ V not detected; does not exclude earlyacute or recovered HAV infection. ~Hepatitis B Surface Antibody NONREACTIVE Nonreactive [facility] Comment:Nonreactive: < 8.00 mIU/mL Hepatitis B Core Antibody Nonreactive Nonreactive [facility] Hepatitis C Antibody Nonreactive Nonreactive [facility] Comment:Antibodies to HCV no t detected; does not exclude early acuteHCV infection. Hepatitis B Surface Ag Negative Negative [facility] Blood Venous blood specimen / Unknown 01/25/2025 12:37 PM EDT 01/25/2025 2:09 PM EDT us Mariella Vanegas MD LAB BLOOD ORDERABLES Final Result Performing Organization Address City/[facility] Co de Phone Number [facility] [address] [place] [phone] * Iron And Total Iron Binding Capacity (01/25/2025 12:37 PM EDT) Iron 111 45 - 160 mcg/dL [facility] Total Iron Binding Capacity 325 228 - 428 mcg/dL [facility] Percent Iron Saturation 34 15 - 50 % [facility] Unsaturated Iron Binding 214 ug/dL [facility] Blood Venous blood specimen / Unknown 01/25/2025 12:37 PM EDT 01/25/2025 2:09 PM EDT us Mariella Vanegas MD LAB BLOOD ORDERABLES Final Result Performing Organization Address [facility] Co de Phone Number [facility] [address] [place] [phone] * Ferritin (01/25/2025 12:37 PM EDT) Ferritin 103 20 - 250 ng/mL [facility] Blood Venous blood specimen / Unknown 01/25/2025 12:37 PM EDT 01/25/2025 2:09 PM EDT us Mariella Vanegas MD LAB BLOOD ORDERABLES Final Result Performing Organization Address City/[facility]/ZIP Co de Phone Number [facility] [address] [place] [phone] * Prothrombin Time-INR (01/25/2025 12:37 PM EDT) Pathologist [facility] Prothrombin Time 11.0 10.9 - 12.4 SEC [facility] INTERNATIONAL NORM RATIO 1.0 0.9 - 1.1 [facility] Comment:INTERNATIONAL NORMAL IZED RATIO (INR) REFERENCE RANGES Reference RangeFor patients not on anticoagulant therapy: 0.9 - 1.1INR ranges for oral anticoagulanttherapy:For prevention and treatment of venous thrombosis and pulmonary embolism: 2.0 - 3.0For acute myocardial infarction with aspirin therapy: 2.0 - 3.0For acute myocardial infarction without aspirin therapy: 3.0 - 4.0For patients with mechanical prosthetic heart valves: 2.5 - 3.5 Blood Venous blood specimen / Unknown 01/25/2025 12:37 PM EDT 01/25/2025 2:09 PM EDT us Mariella Vanegas MD LAB BLOOD ORDERABLES Final Result Performing Organization Address [facility]/ZIP Co de Phone Number [facility] [address] [place] [phone] * Immunoglobulins, Quantitative, IgA, IgG, IgM (01/25/2025 12:37 PM EDT) Pathologist [facility] IMMUNOGLOBULIN G 713 600 - 1640 mg/dL [facility] IMMUNOGLOBULIN A 131 47 - 310 mg/dL [facility] Immunoglobulin M 85 50 - 300 mg/dL [facility] Comment:THIS TEST WAS PERFOR MED AT:[facility] [address] [phone] CHADWICK MD Blood Venous blood specimen / Unknown 01/25/2025 12:37 PM EDT 01/25/2025 2:09 PM EDT Mariella Vanegas MD LAB BLOOD ORDERABLES Final Result [facility] [address] [place] [address] [phone] documented in this encounter Visit Diagnoses Diagnosis Transaminitis- Primary Nonspecific elevation of levels of transaminase or lactic acid dehydrogenase (LDH) Glucosuria with normal serum glucose documented in this encounter Additional Health Concerns Assessment Noted Time PHQ-9 Depression Total Score: 14 025 10:30 AM EDT documented as of this encounter Care Teams Pattern Keeper Relationship Specialty Start Date End Date Mariella Vanegas MD [address] [place] [phone] PCP - General Internal Medicine 06/13/18 documented as of this encounter
--- OUTSIDE RECORDS SUMMARY | 2025-02-14 14:02 | XMS_ITS | Encounter Summary ---
Author Organization [employer] Address [address] [facility] 7t [place] [address] Care Team Providers Care Planting Supervisor Name Role Phone Mariella Vanegas MD Primary Care Provider [phone] Reason for Visit * Reason Onset Date Comments Lab Orders 07/20/2023 Encounter Details Date Type Department Care Team ([facility] st Contact Info) Description 07/20/2023 Telephone [facility] [address] [place] [address] Mariella Vanegas MD [address] [place] [address] Lab Orders Social History Tobacco Use Types Packs/Day Years [...] encounter Miscellaneous Notes * Telephone Encounter - Audrey Camilo RN - 07/22/2023 12:26 PM EST Noted. Order printed and faxed to [facility] as requested. * Telephone Encounter - Alicia Jones - 07/22/2023 10:19 AM EST Tc from [place] with [facility] stating needs a new order for Xray, states will need to say XR orbit 4 views DX r/o metal. * Telephone Encounter - Audrey Camilo RN - 07/21/2023 3:50 PM EST Please review message below and advise if XR order can be placed to r/o metal in eyes as pt reported hx of injury to [facility]. * Telephone Encounter - Gilda Melendez - 07/20/2023 9:42 AM EST T[facility] from [facility] with [facility] requesting a referral for xray to rule out metal in pt eyes . Best contact # [phone]. . documented in this encounter Plan of Treatment Upcoming Encounters Date Type Department Care Team ([facility] st Contact Info) Description 04/08/2025 11:00 AM EDT Telemedicine [facility] [address] [place] [address] 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, JOSE [address] [place] [address] documented as of this encounter Visit Diagnoses Not on filedocumented in this encounter Additional Health Concerns Assessment Noted Time PHQ-9 Depression Total Score: 1 02/05/20 23 3:35 PM EDT documented as of this encounter Care Teams Planting Supervisor Relationship Specialty Start Date End Date Mariella Vanegas MD [address] [place] [address] PCP - General Internal Medicine 06/13/18 documented as of this encounter
--- OUTSIDE RECORDS SUMMARY | 2025-02-14 14:02 | XMS_ITS | Encounter Summary ---
Author Organization [employer] Address [address] 7[address] [place] [address] Care Team Providers Care Bobbin Marker Name Role Phone Mariella Vanegas MD Primary Care Provider [phone] Encounter Details Date Type Department Care Team ([facility] st Contact Info) Description 04/20/2024 Orders Only [facility] CHC MED & PEDS [address] [place], [place] [phone] Mariella Vanegas MD [address] [place] [address] Encounter for HIV pre-exposure prophylaxis Social History Tobacco Use Types Packs/Day Years Used Date Smoking Tobacco: Every Day Cigarettes Smokeless Tobacco: Never Alcohol Use Standard Drinks/Week Comments Yes 0 (1 standard drink = 0.6 oz pur e alcohol) twice a week Depression Answer Date Recorded Patient Health Questionnaire-9 Score 14 03/29/2024 Patient Health Questionnaire-9 Score 14 03/29/2024 Last PHQ-9: Questionnaire Data Not on file 1 Housing Stability Answer Date Recorded What is [...] Date Recorded Patient Health Questionnaire-2 Score 3 03/29/2024 Sex and Gender Information Value Date Recorded Sex Assigned at Male 04/12/2022 10:21 AM EDT Legal Sex Male 10:21 AM EDT Gender Identity Male 04/12/2022 10:21 AM EDT Sexual Orientation Lesbian or Parker 04/12/2022 10 :21 AM EDT documented as of this encounter Plan of Treatment Upcoming Encounters Date Type Department Care Team ([facility] st Contact Info) Description 04/08/2025 11:00 AM EDT Telemedicine [facility] MED & PEDS [address] [place] [address] 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 RN 505 [place] [address] documented as of this encounter Visit Diagnoses Diagnosis Encounter for HIV pre-exposure prophylaxis documented in this encounter Additional Health Concerns Assessment Noted Time PHQ-9 Depression Total Score: 14 024 4:05 PM EDT documented as of this encounter Care Teams Bobbin Marker Relationship Specialty Start Date End Date Mairella Vanegas MD [address] [place] [address] PCP - General Internal Medicine 06/13/18 documented as of this encounter
--- OUTSIDE RECORDS SUMMARY | 2025-02-14 14:02 | XMS_ITS | Encounter Summary ---
Author Organization [employer] Address [address] [facility] 7 [place] [address] Care Team Providers Care Furnace Fitter Name Role Phone Mariella Vanegas MD Primary Care Provider [phone] Encounter Details Date Type Department Care Team ([facility] Contact Info) Description 05/30/2022 Orders Only [facility] MEDICINE [address] [place] [address] Mariella Vanegas MD [address] [place], [place] [phone] On pre-exposure prophylaxis for HIV (Primary Dx) Social History Tobacco Use Types Packs/Day Years Used Date Smoking Tobacco: Every Day Cigarettes Sex and Gender Information Value Date Recorded Sex Assigned at Male 04/12/2022 10:21 AM EDT Legal Sex Male 10:21 AM EDT Gender Identity Male 04/12/2022 10:21 AM EDT Sexual Orientation Lesbian or Parker 04/12/2022 10 :21 AM EDT documented as of this encounter Plan of Treatment Upcoming Encounters Date Type Department Care Team ([facility] Contact Info) Description 04/08/2025 11:00 AM EDT Telemedicine [facility] CHC MED & PEDS [address] [place], [place] [phone] 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 RN 505 [place], [place] [phone] documented as of this encounter Visit Diagnoses Diagnosis On pre-exposure prophylaxis for HIV- Primary documented in this encounter Care Teams Furnace Fitter Relationship Specialty Start Date End Date Mariella Vanegas MD [address] [place] [address] PCP - General Internal Medicine 06/13/18 documented as of this encounter
--- OUTSIDE RECORDS SUMMARY | 2025-02-14 14:02 | XMS_ITS | Encounter Summary ---
Author Organization [employer] Address [address] [facility] 7t [place] [address] Care Team Providers Care Stove Carriage Operator Name Role Phone Mariella Vanegas MD Primary Care Provider [phone] Encounter Details Date Type Department Care Team (Late st Contact Info) Description 02/02/2023 Abstract [email or web address] [address] [place] [address] Mariella Vanegas MD [address] [place] [address] Social History Tobacco Use Types Packs/Day Years Used Date Smoking Tobacco: Every Day Cigarettes Smokeless Tobacco: Never Depression Answer Date Recorded Patient Health Questionnaire-9 Score 1 02/04/2023 Depression Answer Date Recorded Patient Health Questionnaire-2 Score 1 02/04/2023 Sex and Gender Information Value Date Recorded Sex Assigned at Male 04/12/2022 10:21 AM EDT Legal Sex Male 10:21 AM EDT Gender Identity Male 04/12/2022 10:21 AM EDT Sexual Orientation Lesbian or Parker 04/12/2022 10 :21 AM EDT documented as of this encounter Functional Status * Over the past 2 weeks, how often have you been bothered by any of the following problems? Question Answer Date of Assessment Author Patient Health Questionnaire-2 Score 1 01/12 3:35 PM EDT Elisabeth Lyman MA * If you checked off any problems on this questionnaire so far, Question Answer Date of Assessment Author How difficult have these problems made it for you to do your work, take care of things at home, or get along with other people? Not difficult at all 02/04/2023 3:35 PM EDT Elisabeth Lyman MA * Over the past 2 weeks, how often have you been bothered by any of the following problems? Question Answer Date of Assessment Author Little interest or pleasure in doing things Several days 02/04/2023 3:35 PM SONIAT Elisabeth Lyman MA Feeling down, depressed, or hopeless Not at all 02/04/2023 3:35 PM EDT Elisabeth Lyman MA Trouble falling or staying asleep, or sleeping too much Not at all 02/04/2023 3:35 PM EDT Pete Lyman MA Feeling tired or having marquise le energy Not at all 02/04/2023 3:35 PM EDT Elisabeth Lyman MA Poor appetite or overeating Not at all 02/04/2023 3: 35 PM EDT Elisabeth Lyman MA Feeling bad about yourself - or that you are a failure or have let yourself or your family down Not at all 02/04/2023 3:35 PM EDT Elisabeth Hancock MA Trouble concentrating on thi ngs, such as reading the newspaper or watching television Not at all 02/04/2023 3:35 PM SONIAT Elisabeth Lyman MA Moving or speaking so slowly that other people could have noticed? Or the opposite - being so fidgety or restless that you have been moving around a lot more than usual. Not at all 02/04/2023 3:35 PM SONIAT Elisabeth Lyman MA Thoughts that you would be better off or hurting yourself in some way Not at all 02/04/2023 3:35 PM EDT Elisabeth Lyman MA Patient Health Questionnaire -9 Score 1 02/04/2023 3:35 PM EDT Eliasbeth Lyman MA documented as of this encounter Plan of Treatment Upcoming Encounters Date Type Department Care Team ([facility] st Contact Info) Description 04/08/2025 11:00 AM EDT Telemedicine [facility] CHC MED & PEDS [address] [place] [address] 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, RN [address] [place] [address] documented as of this encounter Visit Diagnoses Not on filedocumented in this encounter Care Teams Stove Carriage Operator Relationship Specialty Start Date End Date Mariella Vanegas MD [address] [place] [address] PCP - General Internal Medicine 06/13/18 documented as of this encounter
--- OUTSIDE RECORDS SUMMARY | 2025-02-14 14:02 | XMS_ITS | Encounter Summary ---
Author Organization [employer] Address [address] [facility] 7 [place] [address] Care Team Providers Care Financial Administrator Name Role Phone Mariella Vanegas MD Primary Care Provider [phone] Reason for Referral * Consultation (Routine) - Closed Specialty Diagnoses / Procedures Referred By Contjeanine t Referred To Contact Neurosurgery Diagnoses Spinal stenosis in cervical region Mariella Vanegas MD [address] [place] [address] Phone: tel: fax: Bony Soliz [facility] [place], [place] Phone: tel: fax: Referral ID Status Reason Start Date Expiration Date V isits Requested Visits Authorized [id number] Closed Specialty Services Required 09/14/2023 09/13/2024 1 1 Encounter Details Date Type Department Care Team (Late st Contact Info) Description 09/14/[address] [facility] CHC MED & PEDS [address] [place], [place] [phone] Mariella Vanegas MD [address] [place], [place] [phone] Spinal stenosis in cervical region (Primary Dx) Social History Tobacco Use Types [...] Upcoming Encounters Date Type Department Care Team ([facility] st Contact Info) Description 04/08/2025 11:00 AM EDT Telemedicine [facility] MED & PEDS [address] [place] [address] 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, JOSE [address] [place] [address] Scheduled Referrals Name Type Priority Associated Diagnoses Order Schedule Referral to Neurosurgery Outpatient Referral Routine Spinal stenosis in cervical region Expected: 09/14/2023 (Approximate), Expires: 09/13/2024 documented as of this encounter Visit Diagnoses Diagnosis Spinal stenosis in cervical region- Primary documented in this encounter Additional Health Concerns Assessment Noted Time PHQ-9 Depression Total Score: 1 02/05/20 23 3:35 PM EDT documented as of this encounter Care Teams Financial Administrator Relationship Specialty Start Date End Date Mariella Vanegas MD [address] [place] [address] PCP - General Internal Medicine 06/13/18 documented as of this encounter
--- OUTSIDE RECORDS SUMMARY | 2025-02-14 14:02 | XMS_ITS | Encounter Summary ---
Author Organization [employer] Address [address] [facility] 7t [place] [address] Care Team Providers Care Food Photographer Name Role Phone Mariella Vanegas MD Primary Care Provider [phone] Encounter Details Date Type Department Care Team (Late Contact Info) Description 09/15/2022 Orders Only [facility] MED & PEDS [address] [place], [place] [phone] Mariella Vanegas MD [address] [place] [address] Social History Tobacco Use Types Packs/Day Years Used Date Smoking Tobacco: Every Day Cigarettes Smokeless Tobacco: Never Sex and Gender Information Value Date Recorded Sex Assigned at Male 04/12/2022 10:21 AM EDT Legal Sex Male 10:21 AM EDT Gender Identity Male 04/12/2022 10:21 AM EDT Sexual Orientation Lesbian or Parker 04/12/2022 10 :21 AM EDT COVID-19 Exposure Response Date Recorded In the last 10 days, have yo u been in contact with someone who was confirmed or suspected to have Coronavirus/COVID-19? No / Unsure 09/10/2022 1:25 PM EDT documented as of this encounter Plan of Treatment Upcoming Encounters Date Type Department Care Team (Late st Contact Info) Description 04/08/2025 11:00 AM EDT Telemedicine [facility] MED & PEDS [address] [place] [address] 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, JOSE 505 [place], [place] [phone] documented as of this encounter Visit Diagnoses Not on filedocumented in this encounter Care Teams Food Photographer Relationship Specialty Start Date End Date Mariella Vanegas MD [address] [place] [address] PCP - General Internal Medicine 06/13/18 documented as of this encounter
--- OUTSIDE RECORDS SUMMARY | 2025-02-14 14:02 | XMS_ITS | Encounter Summary ---
Author Organization [employer] Address [address] [facility] 7 [place] [address] Care Team Providers Care Bakery Clerk Name Role Phone Mariella Vanegas MD Primary Care Provider [phone] Reason for Visit * Reason Onset Date Comments Nurse Triage 01/07/2025 Encounter Details Date Type Department Care Team ([facility] st Contact Info) Description 01/07/2025 Telephone C CHC MED & PEDS [address] [place] [address] Mariella Vanegas MD [address] [place] [address] Nurse Triage Social History Tobacco Use Types Packs/Day Years [...] Recorded Patient Health Questionnaire-2 Score 3 03/29/2024 Internet Access Answer Date Recorded Internet Access [...] encounter Miscellaneous Notes * Telephone Encounter - Renita Funez RN - 01/07/2025 10:39 AM EDT Triage call Pt reports neck pain for the last week. Pt denies injury or over use. Pt thought maybe had strectched too much and caused this but, the pain is different. Pt reports right sided neck painto the right jaw. Pt reports swollen gland under the right jaw. Pt doesn't have any teeth in that area. Pt reports a sore throat, neg for fever, ear is blocked on that right side. Pt is able to turn head right /left but it hurts more when turning to the right. Pt reports pain on 01/05/25 began to affect the back of head to behind the right ear with a headache occurring and some light- headedness. Pt has taken oxycodone for pain and still being unable to sleep. Pt is drinking adequate liquids. Ptis advised no available apts today in [facility]. Pt is advised to come to [facility] to be seen by provider and Pt agrees with disposition and knows where the WIC is located. Insurance is not verified. Medicare/[employer]. Pt reports insurance is in good standing advised to bring cards when coming to be seen and Pt agrees. Protocol Used: Neck Pain or Stiffness (Adult) Protocol-Based Disposition: See in Office or Video Visit Today Video visit not offered Positive Triage Question: * Patient wants to be seen * All higher-acuity triage questions were negative Care Advice Discussed: * Reassurance and Education - Neck Pain or Stiffness * Pain Medicines * Activity * Stretching Exercises * Reasons To Call Back - Moderate pain (such as interferes with normal activities) lasts over 3 days - Pain lasts over 2 weeks - Pain begins to shoot into the arms - Numbness or weakness occurs in your arms or legs - You become worse * Telephone Encounter - Aline Wolfe - 01/07/2025 10:02 AM EDT Symptoms: Neck Pain - Not From Injury, Sore Throat, Headache Outcome: Schedule an urgent appointment (within 4 hours) or talk to a nurse or provider soon Reason: Getting worse The caller accepted this outcome. Contact pt at [phone] documented in this encounter Plan of Treatment Upcoming Encounters Date Type Department Care Team ([facility] st Contact Info) Description 04/08/2025 11:00 AM EDT Telemedicine [facility] CHC MED & PEDS [address] [place] [address] 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 RN [address] [place] [address] documented as of this encounter Visit Diagnoses Diagnosis Chronic pain disorder Chronic pain syndrome documented in this encounter Additional Health Concerns Assessment Noted Time PHQ-9 Depression Total Score: 14 024 4:05 PM EDT documented as of this encounter Care Teams Bakery Clerk Relationship Specialty Start Date End Date Mariella Vanegas MD [address] [place] [address] PCP - General Internal Medicine 06/13/18 documented as of this encounter
--- OUTSIDE RECORDS SUMMARY | 2025-02-14 14:02 | XMS_ITS | Encounter Summary ---
Author Organization [employer] Address [address] 7t [place] [address] Care Team Providers Care Guest Service Team Leader Name Role Phone Mariella Vanegas MD Primary Care Provider [phone] Encounter Details Date Type Department Care Team (Latest Contact Info) Description 06/27/2024 Orders Only [facility] CHC MED & PEDS [address] [place], [place] [phone] Mariella Vanegas MD [address] [place] [address] Hypercholesterolemia (Primary Dx) Social History Tobacco Use Types [...] Info) Description 04/08/2025 11:00 AM EDT Telemedicine [facility] MED & PEDS [address] [place] [address] 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, JOSE [address] [place] [address] documented as of this encounter Visit Diagnoses Diagnosis Hypercholesterolemia- Primary Pure hypercholesterolemia documented in this encounter Additional Health Concerns Assessment Noted Time PHQ-9 Depression Total Score: 14 024 4:05 PM EDT documented as of this encounter Care Teams Guest Service Team Leader Relationship Specialty Start Date End Date Mariella Vanegas MD [address] [place] [address] PCP - General Internal Medicine 06/13/18 documented as of this encounter
--- OUTSIDE RECORDS SUMMARY | 2025-02-14 14:02 | XMS_ITS | Encounter Summary ---
Author Organization [employer] Address [address] [facility] 7t [place] [address] Care Team Providers Care Director Corporate Security Name Role Phone Mariella Vanegas MD Primary Care Provider [phone] Encounter Details Date Type Department Care Team ([facility] Contact Info) Description 01/26/2023 Orders Only [facility] MED & PEDS [address] [place], [place] [phone] Mariella Vanegas MD [address] [place], [place] [phone] Screening for STD (sexually transmitted disease) (Primary [...] [facility] MED & PEDS [address] [place], [place] [phone] 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 RN [address] [place], [place] [phone] documented as of this encounter Visit Diagnoses Diagnosis Screening for STD (sexually transmitted disease)- Primary Hypercholesterolemia Pure hypercholesterolemia documented in this encounter Care Teams Director Corporate Security Relationship Specialty Start Date End Date Mariella Vanegas MD [address] [place] [address] PCP - General Internal Medicine 06/13/18 documented as of this encounter
--- OUTSIDE RECORDS SUMMARY | 2025-02-14 14:02 | XMS_ITS | Clinical Summary ---
Author Organization [employer] Address [address] [facility] [address] [place] [address] Care Team Providers Care Lighting Technician Name Role Phone Mariella Vanegas MD Primary Care Provider [phone] Allergies Active Allergy Reactions Criticality Noted Date Comments Bee Venom Swelling 07/08/2022 Medications Misc. Devices (Pulse Oximeter For Finger) misc To check your O2 sat every 4 hours. 04/05/20 22 Active albuterol 108 (90 Base) MCG/ACT inhaler Inhale 2 puffs. By inhalation route every 4-6 hours as needed 04/10/20 21 Active ascorbic acid (Vitamin C) 500 MG tablet Take 1 tablet by mouth. daily 12/25/19 22 Active lamoTRIgine (LaMICtal XR) 100 mg tablet sustained-rele ase 24 hour 24 hr tablet take 1 tablet by oral route every day swallowing whole. Do not crush, chew and/or divide. Take with Lamictal XR 50 mg 05/13/20 21 Active naloxone (Narcan) 4 mg/0.1 mL nasal spray Administer 0.1 mL into affected nostril(s). 08/06/19 22 Active PARoxetine (Paxil) 20 MG tablet Take 1 tablet by mouth. daily 12/02/19 22 Active azithromycin (Zithromax Z-Matthew) 250 MG tablet Take 2 tabs day 1 and then 1 tab daily to finish 6 tablet 05/20/20 23 Active loperamide ([employer] Anti-Diarrheal ) 2 MG tabletIndicati ons:Chronic pain disorder TAKE 1 TABLET BY MOUTH 2 TIMES A DAY NEEDED FOR DIARRHEA 60 tablet 5 05/20/20 23 Active Diclofenac Sodium 1 % gelIndications :Chronic right shoulder pain APPLY TO THE AFFECTED AREA 3 TIMES A DAY. 100 g 07/28/19 24 Active chlorhexidine (Peridex) 0.12 % solution RINSE 15 MLS IN MOUTH OR THROAT IF NEEDED FOR WOUND CARE FOR UP TO 14 DAYS 473 mL 2 12/09/19 24 Active cholecalcifero l VITAMIN D (Vitamin D-3) 50 MCG (2000 UT) capsule TAKE 1 CAPSULE BY MOUTH EVERY DAY 90 capsule 01/20/20 24 Active EPINEPHrine (EpiPen 2-Matthew) 0.3 MG/0.3ML injection syringeIndicat ions:Bee sting allergy Inject 0.3 mL (0.3 mg) as directed 1 (one) time for 1 dose. 1 each 11 01/26/20 24 Active diphenhydrAMIN E (BENADryl) 25 MG capsule Take 1 capsule (25 mg) by mouth every 6 (six) hours if needed for itching. 30 capsule 11 01/26/20 24 Active atorvastatin (Lipitor) 40 MG tabletIndicati ons:Hyperchole sterolemia Take 1 tablet (40 mg) by mouth Once per day. 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 28 tablet 10/30/19 25 Active tiZANidine (Zanaflex) 4 MG tabletIndicati ons:Neck pain on right side Take 1 tablet (4 mg) by mouth every 8 (eight) hours if needed for muscle spasms for up to 7 days. 20 tablet 01/08/20 25 Active HEMOGLOBIN A1C, HBA1C, TEST by In Vitro route. Active emtricitabine- tenofovir AF (Descovy) 200-25 MG tabletIndicati ons:On pre-exposure prophylaxis for HIV Take 1 tablet by mouth in the morning. 30 tablet 2 01/05/20 24 025 Discontinued(Th erapy completed) nicotine (Nicoderm CQ) 21 MG/24HR patchIndicatio ns:Smoking Place 1 patch on the skin 1 (one) time each day at the same time. 30 patch 3 03/29/20 24 025 Discontinued(Th erapy completed) Descovy 200-25 MG tabletIndicati ons:Encounter for HIV pre-exposure prophylaxis Take 1 tablet by mouth in the morning. 30 tablet 2 04/20/20 24 025 Discontinued celecoxib (CeleBREX) 100 MG capsuleIndicat ions:Neck pain on right side Take 1 capsule (100 mg) by mouth if needed in the morning and at bedtime for mild pain or moderate pain. 60 capsule 01/09/20 25 025 Active Problems Problem Noted Date Diagnosed Date Long-term current use of opiate analgesic 2024 Hypercholesterolemia 11/25/2022 Herpes simplex type 1 infection 07/08/2022 Hypertensive disorder 02/09/2021 Cervical spine disease 05/08/2018 Spinal stenosis in cervical region 05/08/2018 Spinal stenosis of lumbar re gion with neurogenic claudication 11/10/2017 Collapse of vertebra 11/10/2017 Depressive disorder 08/26/2016 Anxiety 08/29/2012 Backache 08/29/2012 Encounters Date Type Department Care Team Description 01/29/2025 Results Follow-Up [facility] [address] [place] [address] Mariella Vanegas MD Immunoglobulins, Quantitative, IgA, IgG, IgM, Prothrombin Time-INR, Ferritin, Additional followed-up results: 2 01/25/2025 Results Follow-Up [facility] [address] [place] [address] Tita Castro RN CBC auto differential, Comprehensive Metabolic Panel, Vitamin D, 25-Hydroxy, Total, Immunoassay, Additional followed-up results: 5 01/25/2025 Orders Only [facility] [address] [place] [address] Mariella Vanegas MD Transaminitis (Primary Dx); Glucosuria with normal serum glucose 01/22/2025 10:15 AM EDT Office Visit [facility] [address] [place] [address] Mariella Vanegas MD Neck pain on right side (Primary Dx); Other fatigue; Increased frequency of urination 01/22/2025 Travel 01/21/2025 Travel 01/09/2025 11:00 AM EDT Clinical Support [facility] [address] [place] [address] 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, 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 01/09/2025 Travel 01/07/2025 5:00 PM EDT Office Visit [facility] [address] [place] [phone] Wei Cardona MD Neck pain on right side (Primary Dx) 01/07/2025 Refill [facility] [address] [address] Wei Cardona MD Neck pain on right side 01/07/2025 Travel 01/07/2025 Telephone [facility] [address] [place] [address] Mariella Vanegas MD Nurse Triage 12/06/2024 10:00 AM EDT Telemedicine [facility] [address] [place] [address] 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, JOSE Long-term current use of opiate analgesic 12/06/2024 Travel 12/06/2024 Telephone [facility] [address] [place] [address] 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 RN 11/21/2024 Telephone [facility] [address] [place] [address] Justnia Arzola, JOSE 11/21/2024 Travel from Last 3 Months Immunizations Immunization Administration Dates Next Due INFLUENZA VACCINE QUADRIVALE NT RECOMBINANT PRESERVATIVE FREE RIV4 03/17/2020 Influenza Injectable Quadriv alant Preservative Free IIV4 MDCK 02/09/2023 Influenza injectable quadriv alent IIV4 with preservative 04/26/2018 Influenza, IIV3, injectable 04/30/2014 Influenza, seasonal, injecta ble, preservative free 03/29/2024 Pneumococcal Conjugate PCV 20 12/08/2023 Pneumococcal Polysaccharide PPSV23 04/30/2014 Tdap 08/26/2016 Zoster, Recombinant 10/24/2023,,11/25/2022(Defer red: Other - Will be administered at pt's pharmacy) Family History Medical History Relation Name Comments Alcohol abuse Father Liver cancer Father Lung cancer Father Diabetes type II Maternal Grandmother Relation Name Status Comments Father Maternal Grandmother Social History Tobacco Use Types Packs/Day Years Used Date Smoking Tobacco: Every Day Cigarettes Smokeless Tobacco: Never Tobacco Cessation:Ready to Q uit: Not Asked; Counseling Given: Not Answered Alcohol Use Standard Drinks/Week Comments Yes 0 [...] 10:21 AM EDT Sexual Orientation Lesbian or Pakrer 04/12/2022 10 :21 AM EDT Last Filed Vital Signs Vital Sign Reading Time Taken Comments Blood Pressure 143/80 01/22/2025 10:01 AM EDT Pulse 67 01/22/2025 10:01 AM EDT Temperature 36.6 C (97.8 F) 01/22/2025 10:01 AM EDT Respiratory Rate 20 01/22/2025 10:01 AM EDT Oxygen Saturation 97% 01/22/2025 10:01 AM EDT Inhaled Oxygen Concentration - - Weight 78.9 kg (174 lb) 01/22/2025 10:01 AM EDT Height 180.3 cm (5' 11 ) 01/22/2025 10:01 AM EDT Body Mass Index 24.27 01/22/2025 10:01 AM EDT Plan of Treatment Upcoming Encounters Date Type Department Care Team ([facility] st Contact Info) Description 04/08/2025 11:00 AM EDT Telemedicine [facility] [address] [place] [address] 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, RN [address] [place] [address] Health Maintenance Due Date Last Done Comments CT Colonography 1972 Dental Oral Exam 1972 Dental Prophylaxis 1972 Dental X-Ray: Bitewings 1972 Dental X-Ray: Full Mouth 1972 FIT DNA/Cologuard 1972 FIT 1972 FOBT 1972 Sigmoidoscopy 1972 Family Planning (PISQ) 1987 Hepatitis B Vaccines (1 of 3 - 19+ 3-dose series) 1991 COVID-19 Vaccine ( season) 2025 10/23/2020, 09/25/2020 Influenza Vaccine (#1) 2025 , 02/09/2023, 03/17/2020, Additional history exists Depression Monitoring 07/25/2025 01/22/2025, 025 SDOH Screening 07/27/2025 07/27/2024 Alcohol/Substance Use Screening 08/13/2025 08/13/2024 Disability Screening 01/21/2026 01/21/2025 Diabetes: Hemoglobin A1C 01/22/2026 01/22/2025 Tobacco Screening 01/22/2026 01/22/2025 DTaP/Tdap/Td Vaccines (2 - Td or Tdap) 08/26/2026 08/26/2016 Lipid Panel 06/25/2029 06/25/2024, 08/0 12/2022, 04/19/2022, Additional history exists Colonoscopy 12/30/2030 12/30/2020 Colorectal Cancer Screening 12/30/2030 RSV Patients and Patients Aged 60 years or older (1 - 1-dose 75+ series) 2047 HIV Screening Completed 08/04/2023, 080 07/2022, 08/31/2022, Additional history exists Zoster Vaccines Completed 10/24/2023, 02/09/2023 Pneumococcal Vaccine: 50+ Years Completed 12/08/2023, 04/30/2014 Hepatitis C Screening Completed 01/25/2025 , 08/04/2023, 01/17/2023, Additional history exists HIB Vaccines Aged Out No longer eligi ble based on patient's age to complete this topic HPV Vaccines Aged Out No longer eligi ble based on patient's age to complete this topic Hepatitis A Vaccines Aged Out No long er eligible based on patient's age to complete this topic IPV Vaccines Aged Out No longer eligi ble based on patient's age to complete this topic Meningococcal B Vaccine Aged Out No l onger eligible based on patient's age to complete this topic Meningococcal Vaccine Aged Out No tracey thai eligible based on patient's age to complete this topic RSV under 20 months Aged Out No longe r eligible based on patient's age to complete this topic Rotavirus Vaccines Aged Out No longer eligible based on patient's age to complete this topic Procedures Procedure Name Priority Date/Time Associated Diagnosis Comments HEPATITIS PANEL, GENERAL Routine 01/25/2025 12:37 PM EDT Transaminitis IRON AND TOTAL IRON BINDING CAPACITY Routine 01/25/2025 12:37 PM EDT Transaminitis FERRITIN Routine 01/25/2025 12:37 PM EDT Transaminitis PROTHROMBIN TIME-INR Routine 01/25/2025 12:37 PM EDT Transaminitis IMMUNOGLOBULINS, QUANTITATIVE, IGA, IGG, IGM Routine 01/25/2025 12:37 PM EDT Transaminitis URINALYSIS, COMPLETE, WITH REFLEX TO CULTURE Routine 01/22/2025 10:37 AM EDT Increased frequency of urination PSA, TOTAL WITH REFLEX TO PSA, FREE Routine 01/22/2025 10:33 AM EDT Increased frequency of urination HEMOGLOBIN A1C Routine 01/22/2025 10:33 AM EDT Increased frequency of urination VITAMIN B12/FOLATE, SERUM PANEL Routine 01/22/2025 10:33 AM EDT Neck pain on right side Other fatigue TSH W/REFLEX TO FT4 Routine 01/22/2025 1 0:33 AM EDT Neck pain on right side Other fatigue VITAMIN D,25-OH,TOTAL,IA Routine 01/22/2025 10:33 AM EDT Neck pain on right side Other fatigue COMPREHENSIVE METABOLIC PANEL Routine 01/22/2025 10:33 AM EDT Neck pain on right side Other fatigue CBC WITH AUTO DIFFERENTIAL Routine 01/22/2025 10:33 AM EDT Neck pain on right side Other fatigue POCT YANCY-14 URINE DRUG SCREEN Routine 01/09/2025 11:18 AM EDT Chronic pain disorder POCT COVID-19 AG LEWIS ID NOW Routine 01/07/2025 4:51 PM EDT Neck pain on right side POCT RAPID STREP A Routine 01/07/2025 4: 51 PM EDT Neck pain on right side LIPID PANEL, STANDARD Routine 06/25/2024 2:16 PM EST Hypercholesterolemi a HIV 1 RNA, QUANTITATIVE REAL TIME PCR Routine 08/04/2023 10:09 AM EST Screening for STDs (sexually transmitted diseases) COLONOSCOPY Routine 12/30/2020 from Last 3 Months or Most Recently Relevant to Health Maintenance Results * Hepatitis Panel, General (01/25/2025 12:37 PM EDT) Hepatitis A IgM Nonreactive Nonreactive [facility] Comment:IgM antibodies to DIAZ V not detected; does not exclude earlyacute or recovered HAV infection. ~Hepatitis B Surface Antibody NONREACTIVE Nonreactive [facility] Comment:Nonreactive: < 8.00 mIU/mL Hepatitis B Core Antibody Nonreactive Nonreactive [facility] Hepatitis C Antibody Nonreactive Nonreactive [facility] Comment:Antibodies to HCV no t detected; does not exclude early acuteHCV infection. Hepatitis B Surface Ag Negative Negative [facility] Blood Venous blood specimen / Unknown 01/25/2025 12:37 PM EDT 01/25/2025 2:09 PM EDT us Mariella Vanegas MD LAB BLOOD ORDERABLES Final Result [facility] [address] [place] [phone] * Iron And Total Iron Binding Capacity (01/25/2025 12:37 PM EDT) Iron 111 45 - 160 mcg/dL [facility] Total Iron Binding Capacity 325 228 - 428 mcg/dL [facility] Percent Iron Saturation 34 15 - 50 % [facility] Unsaturated Iron Binding 214 ug/dL [facility] Blood Venous blood specimen / Unknown 01/25/2025 12:37 PM EDT 01/25/2025 2:09 PM EDT us Mariella Vanegas MD LAB BLOOD ORDERABLES Final Result Performing Organization Address [facility] Co de Phone Number [facility] [address] [place] [phone] * Prothrombin Time-INR (01/25/2025 12:37 PM EDT) Pathologist [facility] Prothrombin Time 11.0 10.9 - 12.4 SEC [facility] INTERNATIONAL NORM RATIO 1.0 0.9 - 1.1 [facility] Comment:INTERNATIONAL NORMAL IZED RATIO (INR) REFERENCE [...] BLOOD ORDERABLES Final Result Performing Organization Address [facility] de Phone Number [facility] [address] [place] [phone] * Immunoglobulins, Quantitative, IgA, IgG, IgM (01/25/2025 12:37 PM EDT) IMMUNOGLOBULIN G 713 600 - 1640 mg/dL [facility] IMMUNOGLOBULIN A 131 47 - 310 mg/dL [facility] Immunoglobulin M 85 50 - 300 mg/dL [facility] Comment:THIS TEST WAS PERFOR MED AT:[employer] [address] [phone] CHADWICK MD Blood Venous blood specimen / Unknown 01/25/2025 12:37 PM EDT 01/25/2025 2:09 PM EDT us Mariella Vanegas MD LAB BLOOD ORDERABLES Final Result Performing Organization Address City/[facility]/ZIP Co de Phone Number [facility] [address] [place] [address] [phone] * Ferritin (01/25/2025 12:37 PM EDT) Ferritin 103 20 - 250 ng/mL [facility] Blood Venous blood specimen / Unknown 01/25/2025 12:37 PM EDT 01/25/2025 2:09 PM EDT us Mariella Vanegas MD LAB BLOOD ORDERABLES Final Result Performing Organization Address [facility] Co de Phone Number [facility] [address] [place] [phone] * (ABNORMAL) Urinalysis, Complete, with Reflex to Culture (01/22/2025 10:37 AM EDT) Color Urine Yellow [facility] Appearance Urine Clear [facility] PH 5.5 5.0 - 9.0 [facility] Glucose Urine UA 100(A) Negative mg/dL [facility] Urine Blood Negative Negative [facility] Specific [place] - Urine 1.025 1.005 - 1.025 [facility] Urine Protein Trace Neg-Trace mg/dL [facility] Urine Ketones Negative Negative mg/dL [facility] Nitrite Urine Negative Negative [facility] Leukocyte Esterase Urine Negative Negative [facility] RBC Urine 0-2 0 - 2 /HPF [facility] Urine WBC 0-5 0 - 5 /HPF [facility] Urine Squamous Epithelial Cell 0-2 0 - 2 /HPF [facility] Urine Bacteria None Seen None Seen [facility] Hyaline Casts, Urine 0-2 0 - 2 /LPF [facility] Urine 01/22/2025 10:3 7 AM EDT 01/22/2025 1:50 PM EDT Narrative [facility] - 01/22/2025 2:04 PM EDT [id number], Clean Catch us Mariella Vanegas MD LAB URINE ORDERABLES Final Result Performing Organization Address City/[facility]/ZIP Co de Phone Number [facility] [address] [place] [address] [phone] * Vitamin D, 25-Hydroxy, Total, Immunoassay (01/22/2025 10:33 AM EDT) Vitamin D 25-OH Total 89.6 >30 ng/mL [facility] Comment: Health Based Reference Values*< 20 ng/mL Qktemcenv22-55 ng/mL Insufficient> 30 ng/mL Sufficient*Janet HOGUE. N Engl J Med. 2007;357:266-280There is no well-established upper level of normal vitamin Dlevels. Some laboratories use 50 ng/mL as an upper limit ofnormal. However, toxicity is patient-dependent and may occurat any level. Careful correlation with the patient'spresentation is necessary and, if there is concern forvitamin D toxicity, treatment should be consideredirrespective of the serum level.Care must be taken in interpreting Vitamin D results fromdifferent laboratories and methodologies. Published datademonstrated that results from patients undergoinghemodialysis may show a negative bias when tested withvarious automated 25-OH vitamin D assays when compared toLC-MS/MS.When testing samples from patients whose predominant form ofVitamin D is Vitamin D2, such as patients receiving VitaminD2 supplementation, results that are subtherapeutic shouldbe confirmed with another method such as LC-MS/MS. Blood Venous blood specimen / Unknown 01/22/2025 10:33 AM EDT 01/22/2025 2:01 PM EDT us Mariella Vanegas MD LAB BLOOD ORDERABLES Final Result Performing Organization Address [facility]/ZIP Co de Phone Number [facility] [address] [place] [phone] * Vitamin B12/Folate, Serum Panel (01/22/2025 10:33 AM EDT) Vitamin B12 426 200 - 900 pg/mL [facility] Comment:NORMAL 200-900 PG/ML INDETERMINATE 160-199 PG/ML DEFICIENT < 160 PG/ML Folate 6.5 > or = 4.0 ng/mL [facility] Comment:Reference Values:> o r = 4.0 ng/mL< 4.0 ng/mL suggests folate deficiency Methotrexate, aminopterin and folinic acid(leucovorin) are chemotherapeutic agents whose molecularstructures are similar to folate; therefore, the Architectfolate assay cannot be used for patients using these drugs. Blood Venous blood specimen / Unknown 01/22/2025 10:33 AM EDT 01/22/2025 2:01 PM EDT us Mariella Vanegas MD LAB BLOOD ORDERABLES Final Result Performing Organization Address City/[facility]/ZIP Co de Phone Number [facility] [address] [place] [phone] * TSH W/Reflex to FT4 (01/22/2025 10:33 AM EDT) TSH reflex Free T4 0.71 0.32 - 4.0 uIU/mL [facility] Blood Venous blood specimen / Unknown 01/22/2025 10:33 AM EDT 01/22/2025 2:01 PM EDT us Mariella Vanegas MD LAB BLOOD ORDERABLES Final Result [facility] [address] [place] [phone] * PSA, Total With Reflex to PSA, Free (01/22/2025 10:33 AM EDT) PSA,Total (Free>4and<10) 0.91 0.00 - 4.00 ng/mL [facility] Comment:A Free PSA was not p erformed: The percentage of Free PSA can be used to enhance the differentiation of prostate cancer from benign prostatic disease in subjects whose PSA levels are between 4.0 and 10.0 ng/mL. For subjects whose PSA levels are below 4.0 or above 10.0 ng/mL, the risk of prostate cancer is determined on the basis of the PSA alone. Therefore the % Free PSA is recommended only for those subjects whose PSA levels are between 4.0 and 10.0 ng/mL.PSA methodology: Lewis Alinity i ChemiluminescentMicroparticle Immunoassay (CMIA) 01/22/2025 10:3 3 AM EDT 01/22/2025 2:01 PM EDT us Mariella Vanegas MD LAB BLOOD ORDERABLES Final Result [facility] [address] [place] [phone] * CBC auto differential (01/22/2025 10:33 AM EDT) White Blood Count 7.3 4.8 - 10.8 X10*3/uL [facility] Red Blood Count 4.89 4.60 - 5.80 X10*6/uL [facility] Hemoglobin 15.8 14.0 - 18.0 g/dl [facility] Hematocrit 47.1 42.0 - 52.0 % [facility] Mean Corpuscular Volume 96.3 80.0 - 98.0 fL [facility] Mean Corpuscular Hemoglobin 32.3 27.0 - 33.0 pg [facility] Mean Corpuscular HGB Conc 33.5 31.0 - 36.0 g/dl [facility] Red Cell Distribution Width 13.4 11.0 - 16.0 % [facility] Platelet Count 207 160 - 400 X10*3/uL [facility] Mean Platelet Volume 11.2 9.4 - 12.4 fL [facility] Neutrophils Percent Auto 53.7 45 - 73 % [facility] Imm Gran Pct Auto 0.3 0.0 - 0.4 % [facility] Lymphocytes Percent Auto 33.0 20 - 40 % [facility] Monocytes Percent Auto 10.0 2 - 11 % [facility] Eosinophils Percent Auto 2.0 0 - 4 % [facility] Basophils Percent Auto 1.0 0 - 2 % [facility] NRBC Pct Auto 0.0 0.0 - 0.2 /100WBC [facility] Neutrophils Absolute Auto 3.9 2.0 - 8.3 x10*3/uL [facility] Imm Gran Abs Auto 0.02 0.00 - 0.03 X10*3/uL [facility] Lymphocytes Absolute Auto 2.4 1.2 - 4.9 X10*3/uL [facility] Monocytes Absolute Auto 0.7 0.1 - 1.2 X10*3/uL [facility] Eosinophils Absolute Auto 0.2 0.0 - 0.4 X10*3/uL [facility] Basophils Absolute Auto 0.1 0.0 - 0.2 X10*3/uL [facility] NRBC Abs Auto 0.000 0.0 - 0.012 X10*3/uL [facility] Blood Venous blood specimen / Unknown 01/22/2025 10:33 AM EDT 01/22/2025 2:01 PM EDT us Mariella Vanegas MD LAB BLOOD ORDERABLES Final Result [facility] [address] [place] [phone] * Hemoglobin A1c (01/22/2025 10:33 AM EDT) Hemoglobin A1c 5.7 <6.0 % [facility] Comment:Hemoglobin A1C Refer ence Range Adults: 4.8 - 6.0 % Non diabetic: < 6.0 % Goal: < 7.0 %Additional Action Suggested: > 8.0 %Note: Hemoglobin A1c results are invalid for patients with abnormal amounts of HbF. Blood transfusions may impact the HbA1c concentration in the patient sample. Estimated Average Glucose 117 mg/dL [facility] Comment:eAG = Estimated ave rage glucose which is %A1C expressed asaverage glucose, using the formula of the S4A-SuwcilaGqyetaz Glucose study (ADAG), Diabetes Care, Vol.31,#8,Jan. 2007 Blood Venous blood specimen / Unknown 01/22/2025 10:33 AM EDT 01/22/2025 2:01 PM EDT us Mariella Vanegas MD LAB BLOOD ORDERABLES Final Result [facility] [address] [place] [phone] * (ABNORMAL) Comprehensive Metabolic Panel (01/22/2025 10:33 AM EDT) Sodium 143 135 - 145 mmol/L [facility] Potassium 4.1 3.3 - 5.1 mmol/L [facility] Chloride 109(H) 96 - 108 mmol/L [facility] Carbon Dioxide 24 22 - 29 mmol/L [facility] Anion Gap 14 12 - 20 [facility] Urea Nitrogen (BUN) 17(H) 9 - 16 mg/dL [facility] Creatinine, Serum 0.94 0.5 - 1.4 mg/dL [facility] Estimated Glomerular Filt Rate >60 [facility] Comment:Chronic Kidney Disea se: Estimated GFR < 60 mL/min/[id number] Kidney Disease: Estimated GFR < 15 mL/min/1.73m2 Glucose 105 60 - 115 mg/dL [facility] Calcium 9.3 8.4 - 10.2 mg/dL [facility] Bilirubin, Total 0.3 0.0 - 1.0 mg/dL [facility] Aspartate Amino Transferase 30 5 - 37 U/L [facility] Alanine Aminotransferase 44(H) 0 - 40 U/L [facility] Total Protein 6.9 6.5 - 8.0 g/dL [facility] Albumin Level 4.6 3.5 - 5.0 g/dL [facility] Alkaline Phosphatase 114 39 - 117 U/L [facility] Blood Venous blood specimen / Unknown 01/22/2025 10:33 AM EDT 01/22/2025 2:01 PM EDT Mariella Vanegas MD LAB BLOOD ORDERABLES Final Result [facility] [address] [place] [address] [phone] * POCT YANCY-14 Urine Drug Screen (01/09/2025 11:18 AM EDT) [facility] THC Negative Negative Cocaine Screen, Urine Negative Negative Opiate Screen, Urine Negative Negative Methamphetamine Screen Urine Negative Negative Amphetamine Screen, Urine Negative Negative Benzodiazepines Screen, Urine Negative Negative Barbiturate Screen, Urine Negative Negative Methadone Screen, Urine Negative Negative Buprenophine Screen, Urine Negative Negative TCA, Urine Negative Negative MDMA Urine Negative Negative ng/mL Oxycodone Screen, Urine Negative Negative Phencyclidine (PCP), Urine Negative Negative Propoxyphene, Urine Negative Negative Fentanyl, Urine Negative Negative Urine Urine specimen obtained by clean catch procedure / Unknown 01/09/2025 11:18 AM EDT Narrative 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 RN - 01/09/2025 11:18 AM EDT Internal Pass Control Lot# [id number] Exp: 04-12-26 Result [facility] Mariella Vanegas MD POINT OF CARE TEST ENTER/ED IT ORDERABLES Final Result * POCT COVID-19 Ag Lewis ID NOW (01/07/2025 4:51 PM EDT) [facility] Coronavirus Antigen PCR Negative Negative, Indeterminate, None Detected, Invalid, Specimen unsatisfactory for evaluation, Weakly Positive, 2+ Swab 01/07/2025 4:5 1 PM EDT Wei Cardona MD POINT OF CARE TEST ENTER/EDIT OR DERABLES Final Result * POCT rapid strep A manually resulted (01/07/2025 4:51 PM EDT) Rapid Strep A Screen Negative Negative, None Detected Swab 01/07/2025 4:51 PM EDT Wei Cardona MD POINT OF CARE TEST ENTER/EDIT OR DERABLES Final Result * (ABNORMAL) Lipid Panel, Standard (06/25/2024 2:16 PM EST) [facility] Triglycerides 129 <150 mg/dL [facility] Comment:Desirable Triglyceri de: less than 150 mg/dLBorderline High Triglyceride 150-199 mg/dLHigh Triglyceride: 200-499 mg/dLVery High Triglyceride: greater than or equal to 5OO mg/dL Cholesterol 271(H) <200 mg/dL [facility] Comment:Desirable Cholestero l: less than 200 mg/dLBorderline High Cholesterol: 200-239 mg/dLHigh Cholesterol: greater than 239 mg/dL LDL Cholesterol Calculated 189(H) <100 mg/dL [facility] Comment:Desirable LDL: less than 100 mg/dLNear Optimal/Above Optimal LDL: 110- 129 mg/dLBorderline High LDL: 130-159 mg/dLHigh LDL: 160-189 mg/dLVery High LDL: greater than or equal to 190 mg/dL HDL Cholesterol 57 >40 mg/dL [facility] Comment:Desirable HDL: great er than 40 mg/dL Note: This HDL assay may give artificially low results in patients with liver disease. Blood Venous blood specimen / Unknown 06/25/2024 2:16 PM EST 06/25/2024 5:37 PM EST us Mariella Vanegas MD LAB BLOOD ORDERABLES Final Result [facility] [address] [place] [address] [phone] * HIV-1 RNA, Quantitative, Real-Time PCR (08/04/2023 10:09 AM EST) [facility] HIV RNA PCR Qn Copies NOT DETECTED NOT DETECTED copies/mL [facility] HIV RNA PCR Qn Log Copies NOT DETECTED NOT DETECTED [facility] Comment:Result Units: Log co pies/mLThis test was performed using Real-Time Polymerase ChainReaction.Reportable Range: 20 copies/mL to 10,000,000 copies/mL(1.30 log copies/mL to 7.00 log copies/mL).THIS TEST WAS PERFORMED AT:[facility] [place] [phone] CHADWICK MD Blood Venous blood specimen / Unknown 08/04/2023 10:09 AM EST 08/04/2023 11:22 AM EST us Mariella Vanegas MD LAB BLOOD ORDERABLES Final Result [facility] [address] [place] [address] [phone] * Colonoscopy (12/30/2020) Anatomical Region Laterality Modality Endoscopy Narrative 12/30/2020 Normal Mucosa in the whole colon and terminal ileum. Done by Dr Barrie Rain us Historical Provider ENDOSCOPY PROCEDURE ORDER RADHA Final Result from Last 3 Months or Most Recently Relevant to Health Maintenance Insurance [facility] ONE CARE < 65 [place] [id number] [facility] Care Teams Lighting Technician Relationship Specialty Start Date End Date Mariella Vanegas MD [address] [place] [address] [place] [address] PCP - General Internal Medicine 06/13/18
--- OUTSIDE RECORDS SUMMARY | 2025-02-14 14:02 | XMS_ITS | Encounter Summary ---
Author Organization [employer] Address [address] [facility] 7t [place] [address] Care Team Providers Care Eeg Technician Name Role Phone Mariella Vanegas MD Primary Care Provider [phone] Encounter Details Date Type Department Care Team ([facility] st Contact Info) Description 01/05/2024 Orders Only [facility] CHC MED & PEDS [address] [place], [place] [phone] Mariella Vanegas MD [address] [place] [address] On pre-exposure prophylaxis for HIV Social History Tobacco Use Types Packs/Day Years [...] Info) Description 04/08/2025 11:00 AM EDT Telemedicine [facility] MED & PEDS [address] [place] [address] 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 RN [address] [place] [address] documented as of this encounter Visit Diagnoses Diagnosis On pre-exposure prophylaxis for HIV documented in this encounter Additional Health Concerns Assessment Noted Time PHQ-9 Depression Total Score: 1 02/05/20 23 3:35 PM EDT documented as of this encounter Care Teams Eeg Technician Relationship Specialty Start Date End Date Mariella Vanegas MD [address] [place] [address] PCP - General Internal Medicine 06/13/18 documented as of this encounter
--- OUTSIDE RECORDS SUMMARY | 2025-02-14 14:02 | XMS_ITS | Encounter Summary ---
Author Organization [employer] Address [address] [facility] 7 [place] [address] Care Team Providers Care Material Stockkeeper Yard Name Role Phone Mariella Vanegas MD Primary Care Provider [phone] Reason for Visit * Reason Comments Med Change Request Encounter Details Date Type Department Care Team ([facility] Contact Info) Description 02/03/2023 Refill [facility] CHC MED & PEDS [address] [place] [address] Mariella Vanegas MD [address] [place] [address] Hypercholesterolemia Social History Tobacco Use Types Packs/Day [...] Not difficult at all 02/04/2023 3:35 PM SONIAT Elisabeth Lyman MA * Over the past 2 weeks, how often have you been bothered by any of the following problems? Question Answer Date of Assessment Author Little interest or pleasure in doing things Several days 02/04/2023 3:35 PM SONIAT Elisabeth Lyman MA Feeling down, depressed, or hopeless Not at all 02/04/2023 3:35 PM SONIAT Elisabeth Lyman [place] Trouble falling or staying asleep, or sleeping too much Not at all 02/04/2023 3:35 PM EDT Pete Lyman [place] Feeling tired or having marquise le energy Not at all 02/04/2023 3:35 PM EDT Elisabeth Lyman MA Poor appetite or overeating Not at all 02/04/2023 3: 35 PM SONIAT Elisabeth Lyman MA Feeling bad about yourself [...] usual. Not at all 02/04/2023 3:35 PM Elisabeth Nagel MA Thoughts that you would be better off or hurting yourself in some way Not at all 02/04/2023 3:35 PM SONIAT Elisabeth Lyman MA Patient Health Questionnaire -9 Score 1 02/04/2023 3:35 PM SONIAT Elisabeth Lyman MA documented as of this encounter Miscellaneous Notes * Telephone Encounter - Mariella Vanegas MD - 02/03/2023 11:04 AM EDT I will change to atorvastatin documented in this encounter Plan of Treatment Upcoming Encounters Date Type Department Care Team (Late st Contact Info) Description 04/08/2025 11:00 AM EDT Telemedicine [facility] MED & PEDS [address] [place] [address] 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, JOSE [address] [place] [address] documented as of this encounter Visit Diagnoses Diagnosis Hypercholesterolemia Pure hypercholesterolemia documented in this encounter Care Teams Material Stockkeeper Yard Relationship Specialty Start Date End Date Mariella Vanegas MD [address] [place] [address] PCP - General Internal Medicine 06/13/18 documented as of this encounter
--- OUTSIDE RECORDS SUMMARY | 2025-02-14 14:02 | XMS_ITS | Encounter Summary ---
Author Organization [employer] Address [address] [facility] 7t [place] [address] Care Team Providers Care Reservoir Caretaker Name Role Phone Mariella Vanegas MD Primary Care Provider [phone] Encounter Details Date Type Department Care Team ([facility] st Contact Info) Description 09/20/2024 Orders Only [facility] [address] [place] [address] Provider, MD Rupa Social History Tobacco Use Types Packs/Day Years [...] Upcoming Encounters Date Type Department Care Team ([facility] st Contact Info) Description 04/08/2025 11:00 AM EDT Telemedicine [facility] MED & PEDS [address] [place] [address] 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 RN [address] [place] [address] documented as of this encounter Procedures Procedure Name Priority Date/Time Associated Diagnosis Comments SURGICAL PATHOLOGY Routine 12/30/2020 1:42 PM EDT documented in this encounter Results * Surgical Pathology (12/30/2020 1:42 PM EDT) Historical Provider LAB PATHOLOGY ORDERABLES Final Result documented in this encounter Visit Diagnoses Not on filedocumented in this encounter Additional Health Concerns Assessment Noted Time PHQ-9 Depression Total Score: 14 024 4:05 PM EDT documented as of this encounter Care Teams Reservoir Caretaker Relationship Specialty Start Date End Date Mariella Vanegas MD [address] [place] [address] PCP - General Internal Medicine 06/13/18 documented as of this encounter
--- OUTSIDE RECORDS SUMMARY | 2025-02-14 14:02 | XMS_ITS | Encounter Summary ---
Author Organization [employer] Address [address] [facility] 7t [place] [address] Care Team Providers Care Yarn Mercerizer Operator Helper Name Role Phone Mariella Vanegas MD Primary Care Provider [phone] Encounter Details Date Type Department Care Team ([facility] st Contact Info) Description 01/29/2025 Results Follow-Up [facility] CHC MED & PEDS [address] [place], [place] [phone] Mariella Vanegas MD [address] [place] [address] Immunoglobulins, Quantitative, IgA, IgG, IgM, Prothrombin Time-INR, Ferritin, Additional followed-up results: 2 Social History Tobacco Use Types Packs/Day Years [...] Upcoming Encounters Date Type Department Care Team ([facility] st Contact Info) Description 04/08/2025 11:00 AM EDT Telemedicine [facility] MED & PEDS [address] [place] [address] 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, JOSE [address] [place] [address] documented as of this encounter Visit Diagnoses Not on filedocumented in this encounter Additional Health Concerns Assessment Noted Time PHQ-9 Depression Total Score: 14 025 10:30 AM EDT documented as of this encounter Care Teams Yarn Mercerizer Operator Helper Relationship Specialty Start Date End Date Mariella Vanegas MD [address] [place] [address] PCP - General Internal Medicine 06/13/18 documented as of this encounter
== END 2025-02-14 13:51 | disposition home or self-care (01) ==
LOC: HO.HCS 12:49
PROVIDERS: PCP Internal Medicine; Visit Provider Internal Medicine
DX: R07.9 Chest pain, unspecified (principal)
CPT/HCPCS: 99213

== ENCOUNTER → 2025-02-14 12:48 | Outpatient (BNVA) | payer OTHER, SELFPAY | PROVIDERS: PCP Internal Medicine; Visit Provider Internal Medicine | DX: R07.9 Chest pain, unspecified (principal); R00.2 Palpitations; R53.83 Other fatigue | CPT/HCPCS: 99212 ==

== ENCOUNTER → 2025-03-04 10:59 | Outpatient (REF) | payer OTHER, SELFPAY ==
--- NOTE | ~2025-03-04 | XR_ITS ---
EXAMINATION: XR ELBOW, RIGHT CLINICAL INFORMATION: Right elbow pain. COMPARISON: None available. TECHNIQUE: AP, lateral, and oblique views of the right elbow. FINDINGS: Anterior fat pad is visible but not displaced. Posterior fat pad is not displaced. There is no degenerative change. No fracture line is visible. XR/XR elbow RT min 3V IMPRESSION: Unremarkable right elbow. Electronically signed by: Chandler Elmore MD 03/04/2025 01:24 PM EDT
--- NOTE | 2025-03-04 11:01 | HM_ITS ---
Conclusion: 1. Patient was monitored for total period of 3 days 2. Baseline was normal sinus rhythm with average heart rate of 67 beats per minute 3. Occasional PVCs noted with total burden of 0.5% 4. No significant pauses or tachyarrhythmias noted 5. 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
--- OUTSIDE RECORDS SUMMARY | 2025-03-04 13:38 | XMS_ITS | Encounter Summary ---
Author Organization [employer] Address [address] [facility] 7 [place] [address] Care Team Providers Care Machine Set Up Name Role Phone Mariella Vanegas MD Primary Care Provider [phone] Reason for Visit * Reason Comments Med Change Request Encounter Details Date Type Department Care Team ([facility] Contact Info) Description 02/03/2023 Refill [facility] CHC MED & PEDS [address] [place] [address] Mariella Vanegas MD [address] [place] [address] Hypercholesterolemia Social History Tobacco Use Types Packs/Day [...] Info) Description 04/08/2025 11:00 AM EDT Telemedicine [facility] MED & PEDS [address] [place] [address] 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, JOSE [address] [place] [address] documented as of this encounter Visit Diagnoses Diagnosis Hypercholesterolemia Pure hypercholesterolemia documented in this encounter Care Teams Machine Set Up Relationship Specialty Start Date End Date Mariella Vanegas MD [address] [place] [address] PCP - General Internal Medicine 06/13/18 documented as of this encounter
--- OUTSIDE RECORDS SUMMARY | 2025-03-04 13:38 | XMS_ITS | Encounter Summary ---
Author Organization [employer] Address [address] [facility] 7t [place] [address] Care Team Providers Care Auto Radiator Mechanic Name Role Phone Mariella Vanegas MD Primary Care Provider [phone] Encounter Details Date Type Department Care Team (Late Contact Info) Description 09/15/2022 Orders Only [facility] MED & PEDS [address] [place] [address] Mariella Vanegas MD [address] [place] [address] Social History Tobacco Use Types Packs/Day Years [...] Info) Description 04/08/2025 11:00 AM EDT Telemedicine [facility] MED & PEDS [address] [place] [address] 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, JOSE [address] [place], [place] [phone] documented as of this encounter Visit Diagnoses Not on filedocumented in this encounter Care Teams Auto Radiator Mechanic Relationship Specialty Start Date End Date Mariella Vanegas MD [address] [place] [address] PCP - General Internal Medicine 06/13/18 documented as of this encounter
--- OUTSIDE RECORDS SUMMARY | 2025-03-04 13:38 | XMS_ITS | Encounter Summary ---
Author Organization [employer] Address [address] [facility] 7t [place] [address] Care Team Providers Care Layer Off Name Role Phone Mariella Vanegas MD Primary Care Provider [phone] Reason for Visit * Reason Onset Date Comments Lab Orders 07/20/2023 Encounter Details Date Type Department Care Team ([facility] st Contact Info) Description 07/20/2023 Telephone [facility] CHC MED & PEDS [address] [place] [address] Mariella Vanegas MD [address] [place] [address] Lab Orders Social History Tobacco Use Types [...] - 07/20/2023 9:42 AM EST T[facility] from [facility] requesting a referral for xray to rule out metal in pt eyes . Best contact # [phone]. . documented in this encounter Plan of Treatment Upcoming Encounters Date Type Department Care Team ([facility] st Contact Info) Description 04/08/2025 11:00 AM EDT Telemedicine [facility] CHC MED & PEDS [address] [place] [address] 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, JOSE [address] [place] [address] documented as of this encounter Visit Diagnoses Not on filedocumented in this encounter Additional Health Concerns Assessment Noted Time PHQ-9 Depression Total Score: 1 02/05/20 23 3:35 PM EDT documented as of this encounter Care Teams Layer Off Relationship Specialty Start Date End Date Mariella Vanegas MD [address] [place] [address] PCP - General Internal Medicine 06/13/18 documented as of this encounter
--- OUTSIDE RECORDS SUMMARY | 2025-03-04 13:38 | XMS_ITS | Encounter Summary ---
Author Organization [employer] Address [address] [facility] 7t [place] [address] Care Team Providers Care Automatic I Threading Machine Feeder Name Role Phone Mariella Vanegas MD Primary Care Provider [phone] Encounter Details Date Type Department Care Team ([facility] st Contact Info) Description 01/05/2024 Orders Only [facility] CHC MED & PEDS [address] [place], [place] [phone] Mariella Vanegas MD [address] [place] [address] On pre-exposure prophylaxis for HIV Social History [...] Description 04/08/2025 11:00 AM EDT Telemedicine [facility] MED & PEDS [address] [place] [address] 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 RN [address] [place] [address] documented as of this encounter Visit Diagnoses Diagnosis On pre-exposure prophylaxis for HIV documented in this encounter Additional Health Concerns Assessment Noted Time PHQ-9 Depression Total Score: 1 02/05/20 23 3:35 PM EDT documented as of this encounter Care Teams Automatic I Threading Machine Feeder Relationship Specialty Start Date End Date Mariella Vanegas MD [address] [place] [address] PCP - General Internal Medicine 06/13/18 documented as of this encounter
--- OUTSIDE RECORDS SUMMARY | 2025-03-04 13:38 | XMS_ITS | Clinical Summary ---
Author Organization [employer] Address [address] [facility] [address] [place] [address] Care Team Providers Care Lining Cleaner Name Role Phone Mariella Vanegas MD Primary Care Provider [phone] Allergies Active Allergy Reactions Criticality Noted Date Comments Bee Venom Swelling 07/08/2022 Medications Misc. Devices (Pulse Oximeter For Finger) misc To check your O2 sat every 4 hours. 2 Active albuterol 108 (90 Base) MCG/ACT inhaler Inhale 2 puffs. By inhalation route every 4-6 hours as needed 1 Active ascorbic acid (Vitamin C) 500 MG tablet Take 1 tablet by mouth. daily 2 Active lamoTRIgine (LaMICtal XR) 100 mg tablet sustained-relea se 24 hour 24 hr tablet take 1 tablet by oral route every day swallowing whole. Do not crush, chew and/or divide. Take with Lamictal XR 50 mg 1 Active naloxone (Narcan) 4 mg/0.1 mL nasal spray Administer 0.1 mL into affected nostril(s). 2 Active PARoxetine (Paxil) 20 MG tablet Take 1 tablet by mouth. daily 2 Active azithromycin (Zithromax Z-Matthew) 250 MG tablet Take 2 tabs day 1 and then 1 tab daily to finish 6 tablet 3 Active loperamide ([employer]S Anti-Diarrheal) 2 MG tabletIndicatio ns:Chronic pain disorder TAKE 1 TABLET BY MOUTH 2 TIMES A DAY NEEDED FOR DIARRHEA 60 tablet 5 3 Active Diclofenac Sodium 1 % gelIndications: Chronic right shoulder pain APPLY TO THE AFFECTED AREA 3 TIMES A DAY. 100 g 4 Active chlorhexidine (Peridex) 0.12 % solution RINSE 15 MLS IN MOUTH OR THROAT IF NEEDED FOR WOUND CARE FOR UP TO 14 DAYS 473 mL 2 4 Active cholecalciferol VITAMIN D (Vitamin D-3) 50 MCG (2000 UT) capsule TAKE 1 CAPSULE BY MOUTH EVERY DAY 90 capsule 4 Active EPINEPHrine (EpiPen 2-Matthew) 0.3 MG/0.3ML injection syringeIndicati ons:Bee sting allergy Inject 0.3 mL (0.3 mg) as directed 1 (one) time for 1 dose. 1 each 11 4 Active diphenhydrAMINE (BENADryl) 25 MG capsule Take 1 capsule (25 mg) by mouth every 6 (six) hours if needed for itching. 30 capsule 11 4 Active atorvastatin (Lipitor) 40 MG tabletIndicatio ns:Hypercholest erolemia Take 1 tablet (40 mg) by mouth Once per day. 30 tablet 11 5 08/14/19 26 Active oxyCODONE-aceta minophen (Percocet) 7.5-325 MG tabletIndicatio ns:SENIOR TECHNICAL PROGRAM MANAGER checked 05/17/22 Take 1 tablet by mouth if needed each day for severe pain. 28 tablet 5 Active tiZANidine (Zanaflex) 4 MG tabletIndicatio ns:Neck pain on right side Take 1 tablet (4 mg) by mouth every 8 (eight) hours if needed for muscle spasms for up to 7 days. 20 tablet 5 Active HEMOGLOBIN A1C, HBA1C, TEST by In Vitro route. Active celecoxib (CeleBREX) 100 MG capsuleIndicati ons:Neck pain on right side Take 1 capsule (100 mg) by mouth if needed in the morning and at bedtime for mild pain or moderate pain. 60 capsule 5 02/08/20 25 Active Problems Problem Noted Date Diagnosed Date Long-term current use of opiate analgesic 2024 Hypercholesterolemia 11/25/2022 Herpes simplex type 1 infection 07/08/2022 Hypertensive disorder 02/09/2021 Cervical spine disease 05/08/2018 Spinal stenosis in cervical region 05/08/2018 Spinal stenosis of lumbar re gion with neurogenic claudication 11/10/2017 Collapse of vertebra 11/10/2017 Depressive disorder 08/26/2016 Anxiety 08/29/2012 Backache 08/29/2012 Encounters Date Type Department Care Team Description 03/04/2025 Orders Only [facility] External Provider, 01/29/2025 Results Follow-Up [facility] MED & PEDS [address] [place] [address] Mariella Vanegas MD Immunoglobulins, Quantitative, IgA, IgG, IgM, Prothrombin Time-INR, Ferritin, Additional followed-up results: 2 01/25/2025 Results Follow-Up [facility] & PEDS [address] [place] [address] Tita Castro RN CBC auto differential, Comprehensive Metabolic Panel, Vitamin D, 25-Hydroxy, Total, Immunoassay, Additional followed-up results: 5 01/25/2025 Orders Only [facility] P[facility] [address] [place] [address] Mariella Vanegas MD Transaminitis (Primary Dx); Glucosuria with normal serum glucose 01/22/2025 10:15 AM EDT Office Visit [facility] [address] [place] [address] Mariella Vanegas MD Neck pain on right side (Primary Dx); Other fatigue; Increased frequency of urination 01/22/2025 Travel 01/21/2025 Travel 01/09/2025 11:00 AM EDT Clinical Support [facility] [address] [place] [address] 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 RN Chronic pain disorder 01/09/2025 Travel 01/07/2025 5:00 PM EDT Office Visit [facility] [address] [address] Wei Cardona MD Neck pain on right side (Primary Dx) 01/07/2025 Refill [facility] [address] [place] [address] Wei Cardona MD Neck pain on right side 01/07/2025 Travel 01/07/2025 Telephone [facility] PED[facility] [address] [place] [address] Mariella Vanegas MD Nurse Triage 12/06/2024 10:00 AM EDT Telemedicine [facility] [address] [place] [address] 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, JOSE Long-term current use of opiate analgesic 12/06/2024 Travel 12/06/2024 Telephone [facility] [address] [place] [address] 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, JOSE from Last 3 Months Immunizations Immunization Administration [...] or Parker 04/12/2022 10 :21 AM EDT Last Filed [...] Info) Description 04/08/2025 11:00 AM EDT Telemedicine [facility] PEDS [address] [place] [address] 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, RN [address] [place] [address] Health Maintenance Due Date Last Done Comments [...] 75+ series) 2047 HIV Screening Completed 08/04/2023, 08/0 07/2022, 08/31/2022, Additional history exists Zoster Vaccines [...] Procedure Name Priority Date/Time Associated Diagnosis Comments XR ELBOW 3+ VIEWS RIGHT Routine 03/04/2025 1:03 PM EDT HEPATITIS PANEL, GENERAL Routine 01/25/2025 12:37 PM [...] Recently Relevant to Health Maintenance Results * XR Elbow 3+ Views Right (03/04/2025 1:03 PM EDT) Anatomical Region Laterality Modality Upper Extremities, Elbow Right Radiogr aphic Imaging 03/04/2025 1:03 PM EDT Narrative 03/04/2025 1:27 PM EDT [address] [address] XRay Report Signed Patient: Violette Ovalle MR#: [id number] 6 : 1970 Acct:[id number] Age/Sex: 54 / M ADM Date: 03/04/25 Loc: HO.CARD Attending Dr: José Katz MD Ordering Physician: HARESH GROSSMAN Date of Service: 03/04/25 Procedure(s): XR elbow RT min 3V Accession Number(s): [id number] cc: Mariella Vanegas MD; HARESH GROSSMAN Reason for Exam: Right elbow pain. EXAMINATION: XR ELBOW, RIGHT CLINICAL INFORMATION: Right elbow pain. COMPARISON: None available. TECHNIQUE: AP, lateral, and oblique views of the right elbow. FINDINGS: Anterior fat pad is visible but not displaced. Posterior fat pad is not displaced. There is no degenerative change. No fracture line is visible. XR/XR elbow RT min 3V IMPRESSION: Unremarkable right elbow. Electronically signed by: Chandler Elmore MD 03/04/2025 01:24 PM EDT Dictated By: Chandler Elmore MD Signed By: <Electronically signed by Chandler Elmore MD in OV> 03/04/25 1324 DD/ 1303 TD/TT: 03/04/25 1308 [employer] Supervisor: Procedure Note Donotuseinterpreter, Image - 03/04/[address] [address] XRay Report Signed Patient: Violette Ovalle LMR#: [id number] 6 : 1970Acct:[id number] Age/Sex: 54 / MADM Date: 03/04/25 Loc: HO.CARD Attending Dr: José Katz MD Ordering Physician: HARESH GROSSMAN Date of Service: 03/04/25 Procedure(s): XR elbow RT min 3V Accession Number(s): [id number] cc: Mariella Vanegas MD; HARESH GROSSMAN Reason for Exam: Right elbow pain. EXAMINATION: XR ELBOW, RIGHT CLINICAL INFORMATION: Right elbow pain. COMPARISON: None available. TECHNIQUE: AP, lateral, and oblique views of the right elbow. FINDINGS: Anterior fat pad is visible but not displaced. Posterior fat pad is not displaced. There is no degenerative change. No fracture line is visible. XR/XR elbow RT min 3V IMPRESSION: Unremarkable right elbow. Electronically signed by: Chandler Elmore MD 03/04/2025 01:24 PM EDT RP Dictated By: Chandler Elmore MD Signed By: <Electronically signed by Chandler Elmore MD in OV> 03/04/25 1324 DD/ 1303 TD/TT: 03/04/25 1308 [employer] Supervisor: [facility] External Provider IMG XR PROCEDURES Final Result * Hepatitis Panel, General (01/25/2025 12:37 PM EDT) Hepatitis A IgM Nonreactive Nonreactive [facility] Comment:IgM antibodies to DIAZ V not detected; does not exclude earlyacute or recovered HAV infection. ~Hepatitis B Surface Antibody NONREACTIVE Nonreactive [facility] Comment:Nonreactive: < 8.00 mIU/mL Hepatitis B Core Antibody Nonreactive Nonreactive [facility] Hepatitis C Antibody Nonreactive Nonreactive [facility] Comment:Antibodies to HCV no t detected; does not exclude early acuteHCV infection. Hepatitis B Surface Ag Negative Negative [facility] Blood Venous blood specimen / Unknown 01/25/2025 12:37 PM EDT 01/25/2025 2:09 PM EDT Mariella Vanegas MD LAB BLOOD ORDERABLES Final Result [facility] [address] [place] [phone] * Iron And Total Iron Binding Capacity (01/25/2025 12:37 PM EDT) Pathologist [facility] Iron 111 45 - 160 mcg/dL [facility] Total Iron Binding Capacity 325 228 - 428 mcg/dL [facility] Percent Iron Saturation 34 15 - 50 % [facility] Unsaturated Iron Binding 214 ug/dL [facility] Blood Venous blood specimen / Unknown 01/25/2025 12:37 PM EDT 01/25/2025 2:09 PM EDT us Mariella Vanegas MD LAB BLOOD ORDERABLES Final Result Performing Organization Address City/[facility]/ZIP Co de Phone Number [facility] [address] [place] [phone] * Prothrombin Time-INR (01/25/2025 12:37 PM EDT) [facility] Prothrombin Time 11.0 10.9 - 12.4 SEC [facility] INTERNATIONAL NORM RATIO 1.0 0.9 - 1.1 [facility] Comment:INTERNATIONAL NORMAL IZED RATIO (INR) [...] Final Result Performing Organization Address [facility]/ZIP Co de Phone Number [facility] [address] [place] [phone] * Immunoglobulins, Quantitative, IgA, IgG, IgM (01/25/2025 12:37 PM EDT) [facility] IMMUNOGLOBULIN G 713 600 - 1640 mg/dL [facility] IMMUNOGLOBULIN A 131 47 - 310 mg/dL [facility] Immunoglobulin M 85 50 - 300 mg/dL [facility] Comment:THIS TEST WAS PERFOR MED AT:[facility] [place] [phone] CHADWICK MD Blood Venous blood specimen / Unknown 01/25/2025 12:37 PM EDT 01/25/2025 2:09 PM EDT us Mariella Vanegas MD LAB BLOOD ORDERABLES Final Result Performing Organization Address [facility]/ZIP Co de Phone Number [facility] [address] [place] [phone] * Ferritin (01/25/2025 12:37 PM EDT) Pathologist [facility] Ferritin 103 20 - 250 ng/mL [facility] Blood Venous blood specimen / Unknown 01/25/2025 12:37 PM EDT 01/25/2025 2:09 PM EDT us Mariella Vanegas MD LAB BLOOD ORDERABLES Final Result Performing Organization Address [facility] de Phone Number [facility] [address] [place] [phone] * (ABNORMAL) Urinalysis, Complete, with Reflex to Culture (01/22/2025 10:37 AM EDT) Pathologist [facility] Color Urine Yellow [facility] Appearance Urine Clear [facility] PH 5.5 5.0 - 9.0 [facility] Glucose Urine UA 100(A) Negative mg/dL [facility] Urine Blood Negative Negative [facility] Specific [place] - Urine 1.025 1.005 - 1.025 [facility] Urine Protein Trace Neg-Trace mg/dL [facility] Urine Ketones Negative Negative mg/dL [facility] Nitrite Urine Negative Negative [facility] Leukocyte Esterase Urine Negative Negative [facility] RBC Urine 0-2 0 - 2 /HPF [facility] Urine WBC 0-5 0 - 5 /HPF [facility] Urine Squamous Epithelial Cell 0-2 0 - 2 /HPF [facility] Urine Bacteria None Seen None Seen [facility] Hyaline Casts, Urine 0-2 0 - 2 /LPF [facility] Urine 01/22/2025 10:3 7 AM EDT 01/22/2025 1:50 PM EDT Narrative [facility] - 01/22/2025 2:04 PM EDT [id number], Clean Catch us Mariella Vanegas MD LAB URINE ORDERABLES Final Result [facility] [address] [place] [phone] * Vitamin D, 25-Hydroxy, Total, Immunoassay (01/22/2025 10:33 AM EDT) Vitamin D 25-OH Total 89.6 >30 ng/mL [facility] Comment: Health Based Reference Values*< 20 ng/mL Ypguxprnk27-97 ng/mL Insufficient> 30 ng/mL Sufficient*Janet HOGUE. N [...] Final Result Performing Organization Address [facility]/ZIP Co de Phone Number [facility] [address] [place] [phone] * Vitamin B12/Folate, Serum Panel (01/22/2025 10:33 AM EDT) Vitamin B12 426 200 - 900 pg/mL [facility] Comment:NORMAL 200-900 PG/ML INDETERMINATE 160-199 PG/ML DEFICIENT < 160 PG/ML Folate 6.5 > or = 4.0 ng/mL [facility] Comment:Reference Values:> o r = [...] BLOOD ORDERABLES Final Result Performing Organization Address City/[facility]/ZIP Co de Phone Number [facility] [address] [place] [phone] * TSH W/Reflex to FT4 (01/22/2025 10:33 AM EDT) TSH reflex Free T4 0.71 0.32 - 4.0 uIU/mL [facility] Blood Venous blood specimen / Unknown 01/22/2025 10:33 AM EDT 01/22/2025 2:01 PM EDT us Mariella Vanegas MD LAB BLOOD ORDERABLES Final Result Performing Organization Address [facility] Co de Phone Number [facility] [address] [place] [phone] * PSA, Total With Reflex to PSA, Free (01/22/2025 10:33 AM EDT) PSA,Total (Free>4and<10) 0.91 0.00 - 4.00 ng/mL [facility] Comment:A Free PSA was not [...] are between 4.0 and 10.0 ng/mL.PSA methodology: Guestmob Alinity i ChemiluminescentMicroparticle Immunoassay (CMIA) 01/22/2025 10:3 3 AM EDT 01/22/2025 2:01 PM EDT Mariella Vanegas MD LAB BLOOD ORDERABLES Final Result Performing Organization Address [facility] de Phone Number [facility] [address] [place] [phone] * CBC auto differential (01/22/2025 10:33 AM EDT) White Blood Count 7.3 4.8 - 10.8 X10*3/uL [facility] Red Blood Count 4.89 4.60 - 5.80 X10*6/uL [facility] Hemoglobin 15.8 14.0 - 18.0 g/dl [facility] Hematocrit 47.1 42.0 - 52.0 % [facility] Mean Corpuscular Volume 96.3 80.0 - 98.0 fL [facility] Mean Corpuscular Hemoglobin 32.3 27.0 - 33.0 pg [facility] Mean Corpuscular HGB Conc 33.5 31.0 - 36.0 g/dl [facility] Red Cell Distribution Width 13.4 11.0 - 16.0 % [facility] Platelet Count 207 160 - 400 X10*3/uL [facility] Mean Platelet Volume 11.2 9.4 - 12.4 fL [facility] Neutrophils Percent Auto 53.7 45 - 73 % [facility] Imm Gran Pct Auto 0.3 0.0 - 0.4 % [facility] Lymphocytes Percent Auto 33.0 20 - 40 % [facility] Monocytes Percent Auto 10.0 2 - 11 % [facility] Eosinophils Percent Auto 2.0 0 - 4 % [facility] Basophils Percent Auto 1.0 0 - 2 % [facility] NRBC Pct Auto 0.0 0.0 - 0.2 /100WBC [facility] Neutrophils Absolute Auto 3.9 2.0 - 8.3 x10*3/uL [facility] Imm Gran Abs Auto 0.02 0.00 - 0.03 X10*3/uL [facility] Lymphocytes Absolute Auto 2.4 1.2 - 4.9 X10*3/uL [facility] Monocytes Absolute Auto 0.7 0.1 - 1.2 X10*3/uL [facility] Eosinophils Absolute Auto 0.2 0.0 - 0.4 X10*3/uL [facility] Basophils Absolute Auto 0.1 0.0 - 0.2 X10*3/uL [facility] NRBC Abs Auto 0.000 0.0 - 0.012 X10*3/uL [facility] Blood Venous blood specimen / Unknown 01/22/2025 10:33 AM EDT 01/22/2025 2:01 PM EDT us Mariella Vanegas MD LAB BLOOD ORDERABLES Final Result [facility] [address] [place] [phone] * Hemoglobin A1c (01/22/2025 10:33 AM EDT) Hemoglobin A1c 5.7 <6.0 % [facility] Comment:Hemoglobin A1C Refer ence Range Adults: 4.8 - 6.0 % Non diabetic: < 6.0 % Goal: < 7.0 %Additional Action Suggested: > 8.0 %Note: Hemoglobin A1c results are invalid for patients with abnormal amounts of HbF. Blood transfusions may impact the HbA1c concentration in the patient sample. Estimated Average Glucose 117 mg/dL [facility] Comment:eAG = Estimated ave rage glucose which is %A1C expressed asaverage glucose, using the formula of the B7K-EvlznzrEciwnlv Glucose study (ADAG), Diabetes Care, Vol.31,#8,Jan. 2007 Blood Venous blood specimen / Unknown 01/22/2025 10:33 AM EDT 01/22/2025 2:01 PM EDT us Mariella Vanegas MD LAB BLOOD ORDERABLES Final Result [facility] [address] [place] [phone] * (ABNORMAL) Comprehensive Metabolic Panel (01/22/2025 10:33 AM EDT) Sodium 143 135 - 145 mmol/L [facility] Potassium 4.1 3.3 - 5.1 mmol/L [facility] Chloride 109(H) 96 - 108 mmol/L [facility] Carbon Dioxide 24 22 - 29 mmol/L [facility] Anion Gap 14 12 - 20 [facility] Urea Nitrogen (BUN) 17(H) 9 - 16 mg/dL [facility] Creatinine, Serum 0.94 0.5 - 1.4 mg/dL [facility] Estimated Glomerular Filt Rate >60 [facility] Comment:Chronic Kidney Disea se: Estimated GFR < 60 mL/min/1.75o1Eixjwh Kidney Disease: Estimated GFR < 15 mL/min/1.73m2 Glucose 105 60 - 115 mg/dL [facility] Calcium 9.3 8.4 - 10.2 mg/dL [facility] Bilirubin, Total 0.3 0.0 - 1.0 mg/dL [facility] Aspartate Amino Transferase 30 5 - 37 U/L [facility] Alanine Aminotransferase 44(H) 0 - 40 U/L [facility] Total Protein 6.9 6.5 - 8.0 g/dL [facility] Albumin Level 4.6 3.5 - 5.0 g/dL [facility] Alkaline Phosphatase 114 39 - 117 U/L [facility] Blood Venous blood specimen / Unknown 01/22/2025 10:33 AM EDT 01/22/2025 2:01 PM EDT us Mariella Vanegas MD LAB BLOOD ORDERABLES Final Result Performing Organization Address City/State/[facility] Co de Phone Number [facility] [address] [place] [phone] * POCT YANCY-14 Urine Drug Screen (01/09/2025 11:18 AM EDT) THC Negative Negative Cocaine Screen, Urine Negative [...] 11:18 AM EDT Internal Pass Control Lot# [id number] Exp: 04-12-26 us Mariella Vanegas MD POINT OF CARE TEST ENTER/ED IT ORDERABLES Final Result * POCT COVID-19 Ag Lweis ID NOW (01/07/2025 4:51 PM EDT) Pathologist [facility] Coronavirus Antigen PCR Negative Negative, Indeterminate, None Detected, Invalid, Specimen unsatisfactory for evaluation, Weakly Positive, 2+ Swab 01/07/2025 4:51 PM EDT us Wei Cardona MD POINT OF CARE TEST ENTER/EDIT OR DERABLES Final Result * POCT rapid strep A manually resulted (01/07/2025 4:51 PM EDT) [facility] Rapid Strep A Screen Negative Negative, None Detected Swab 01/07/2025 4:51 PM EDT us Wei Cardona MD POINT OF CARE TEST ENTER/EDIT OR DERABLES Final Result * (ABNORMAL) Lipid Panel, Standard (06/25/2024 2:16 PM EST) [facility] Triglycerides 129 <150 mg/dL [facility] Comment:Desirable Triglyceri de: less than 150 mg/dLBorderline High Triglyceride 150-199 mg/dLHigh Triglyceride: 200-499 mg/dLVery High Triglyceride: greater than or equal to 5OO mg/dL Cholesterol 271(H) <200 mg/dL [facility] Comment:Desirable Cholestero l: less than 200 mg/dLBorderline High Cholesterol: 200-239 mg/dLHigh Cholesterol: greater than 239 mg/dL LDL Cholesterol Calculated 189(H) <100 mg/dL [facility] Comment:Desirable LDL: less than 100 mg/dLNear Optimal/Above Optimal LDL: 110- 129 mg/dLBorderline High LDL: 130-159 mg/dLHigh LDL: 160-189 mg/dLVery High LDL: greater than or equal to 190 mg/dL HDL Cholesterol 57 >40 mg/dL [facility] Comment:Desirable HDL: great er than 40 mg/dL Note: This HDL assay may give artificially low results in patients with liver disease. Blood Venous blood specimen / Unknown 06/25/2024 2:16 PM EST 06/25/2024 5:37 PM EST us Mariella Vanegas MD LAB BLOOD ORDERABLES Final Result Performing Organization Address City/[facility]/ZIP Co de Phone Number [facility] [address] [place] [phone] * HIV-1 RNA, Quantitative, Real-Time PCR (08/04/2023 10:09 AM EST) HIV RNA PCR Qn Copies NOT DETECTED NOT DETECTED copies/mL [facility] HIV RNA PCR Qn Log Copies NOT DETECTED NOT DETECTED [facility] Comment:Result Units: Log co pies/mLThis test was performed using Real-Time Polymerase ChainReaction.Reportable Range: 20 copies/mL to 10,000,000 copies/mL(1.30 log copies/mL to 7.00 log copies/mL).THIS TEST WAS PERFORMED AT:[facility] [place] [phone] CHADWICK MD Blood Venous blood specimen / Unknown 08/04/2023 10:09 AM EST 08/04/2023 11:22 AM EST us Mariella Vanegas MD LAB BLOOD ORDERABLES Final Result Performing Organization Address [facility] Co de Phone Number [facility] [address] [place] [phone] * Colonoscopy (12/30/2020) Anatomical Region Laterality Modality Endoscopy Narrative 12/30/2020 Normal Mucosa in the whole colon and terminal ileum. Done by Dr Barrie aRin us Historical Provider ENDOSCOPY PROCEDURE ORDER RADHA Final Result from Last 3 Months or Most Recently Relevant to Health Maintenance Insurance [employer] < [address] [facility] Care Teams Lining Cleaner Relationship Specialty Start Date End Date Mariella Vanegas MD [address] [place] [phone] PCP - General Internal Medicine 06/13/18
--- OUTSIDE RECORDS SUMMARY | 2025-03-04 13:38 | XMS_ITS | Encounter Summary ---
Author Organization [employer] Address [address] [place] [address] Care Team Providers Care Headrig Sawyer Name Role Phone Mariella Vanegas MD Primary Care Provider [phone] Encounter Details Date Type Department Care Team (Latest Contact Info) Description 06/27/2024 Orders Only [facility] [address] [place], [place] [phone] Mariella Vanegas MD [address] [place] [address] Hypercholesterolemia (Primary Dx) Social History Tobacco Use [...] 04/08/2025 11:00 AM EDT Telemedicine [facility] [address] [place] [address] 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, JOSE [address] [place] [address] documented as of this encounter Visit Diagnoses Diagnosis Hypercholesterolemia- Primary Pure hypercholesterolemia documented in this encounter Additional Health Concerns Assessment Noted Time PHQ-9 Depression Total Score: 14 024 4:05 PM EDT documented as of this encounter Care Teams Headrig Sawyer Relationship Specialty Start Date End Date Mariella Vanegas MD [address] [place] [address] PCP - General Internal Medicine 06/13/18 documented as of this encounter
--- OUTSIDE RECORDS SUMMARY | 2025-03-04 13:38 | XMS_ITS | Encounter Summary ---
Author Organization [employer] Address [address] 7t [place] [address] Care Team Providers Care Side Sawyer Name Role Phone Mariella Vanegas MD Primary Care Provider [phone] Encounter Details Date Type Department Care Team (Late st Contact Info) Description 03/04/2025 Orders Only [facility] External Provider, [facility] Social History Tobacco Use Types Packs/Day Years [...] Info) Description 04/08/2025 11:00 AM EDT Telemedicine [facility] MED [facility] PEDS 505 [place] [address] 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, RN 505 [place] [address] documented as of this encounter Procedures Procedure Name Priority Date/Time Associated Diagnosis Comments XR ELBOW 3+ VIEWS RIGHT Routine 03/04/2025 1:03 PM EDT documented in this encounter Results * XR Elbow 3+ Views Right (03/04/2025 1:03 PM EDT) Anatomical Region Laterality Modality Upper Extremities, Elbow Right Radiogr aphic Imaging 03/04/2025 1:03 PM EDT Narrative 03/04/2025 1:27 PM EDT [address] [address] XRay Report Signed Patient: Violette Ovalle MR#: [id number] 6 : 1970 Acct:[id number] Age/Sex: 54 / M ADM Date: 03/04/25 Loc: [facility] Attending Dr: José Katz MD Ordering Physician: HARESH GROSSMAN Date of Service: 03/04/25 Procedure(s): XR elbow RT min 3V Accession Number(s): [id number] cc: Mariella Vanegas MD; HARESH GROSSMAN Reason [...] 03/04/25 1324 DD/ 1303 TD/TT: 03/04/25 1308 Automation Sales Manager: Procedure Note Donotuseinterpreter, Image - 03/04/2025 [place] [address] XRay Report Signed Patient: Violette Ovalle LMR#: [id number] 6 : 1970Acct:[id number] Age/Sex: 54 / MADM Date: 03/04/25 Loc: .[facility] Attending Dr: José Katz MD Ordering Physician: HARESH GROSSMAN Date of Service: 03/04/25 Procedure(s): XR elbow RT min 3V Accession Number(s): [id number] cc: Mariella Vanegas MD; HARESH GROSSMAN Reason [...] 03/04/25 1324 DD/ 1303 TD/TT: 03/04/25 1308 Automation Sales Manager: [facility] External Provider IMG XR PROCEDURES Final Result documented in this encounter Visit Diagnoses Not on filedocumented in this encounter Additional Health Concerns Assessment Noted Time PHQ-9 Depression Total Score: 14 025 10:30 AM EDT documented as of this encounter Care Teams Side Sawyer Relationship Specialty Start Date End Date Mariella Vanegas MD [address] [place] [address] PCP - General Internal Medicine 06/13/18 documented as of this encounter
--- OUTSIDE RECORDS SUMMARY | 2025-03-04 13:38 | XMS_ITS | Encounter Summary ---
Author Organization [employer] Address [address] [place] [address] Care Team Providers Care Bookkeeping Assistant Name Role Phone Mariella Vanegas MD Primary Care Provider [phone] Encounter Details Date Type Department Care Team ([facility] st Contact Info) Description 04/20/2024 Orders Only [facility] CH[facility] MED & PEDS [address] [place], [place] [phone] Mariella Vanegas MD 505 [place] [address] Encounter for HIV pre-exposure prophylaxis Social History [...] Upcoming Encounters Date Type Department Care Team ([facility] st Contact Info) Description 04/08/2025 11:00 AM EDT Telemedicine [facility] MED & PEDS [address] [place] [address] 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 RN 505 [place] [address] documented as of this encounter Visit Diagnoses Diagnosis Encounter for HIV pre-exposure prophylaxis documented in this encounter Additional Health Concerns Assessment Noted Time PHQ-9 Depression Total Score: 14 024 4:05 PM EDT documented as of this encounter Care Teams Bookkeeping Assistant Relationship Specialty Start Date End Date Mariella Vanegas MD 505 [place] [address] PCP - General Internal Medicine 06/13/18 documented as of this encounter
--- OUTSIDE RECORDS SUMMARY | 2025-03-04 13:38 | XMS_ITS | Encounter Summary ---
Author Organization [employer] Address [address] [facility] 7t [place] [address] Care Team Providers Care Pattern Chain Builder Name Role Phone Mariella Vanegas MD Primary Care Provider [phone] Encounter Details Date Type Department Care Team ([facility] st Contact Info) Description 09/20/2024 Orders Only [facility] [address] [place] [address] Provider, MD Rupa Social History Tobacco Use [...] Upcoming Encounters Date Type Department Care Team ([facility] st Contact Info) Description 04/08/2025 11:00 AM EDT Telemedicine [facility] MED & PEDS 505 [place] [address] 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 RN 505 [place] [address] documented as of this encounter Procedures Procedure [...] as of this encounter Care Teams Pattern Chain Builder Relationship Specialty Start Date End Date Mariella Vanegas MD 505 [place] [address] PCP - General Internal Medicine 06/13/18 documented as of this encounter
--- OUTSIDE RECORDS SUMMARY | 2025-03-04 13:38 | XMS_ITS | Encounter Summary ---
Author Organization [employer] Address [address] [facility] 7 [place] [address] Care Team Providers Care Garbage Pick Up Worker Name Role Phone Mariella Vanegas MD Primary Care Provider [phone] Reason for Referral * Imaging (Routine) - Authorized Specialty Diagnoses / Procedures Referred By Contac t Referred To Contact Radiology Diagnoses Transaminitis Procedures US Abdomen Comp w elastography Mariella Vanegas MD 505 [place] [address] Phone: tel: fax: [address] Phone: tel: fax: Referral ID Status Reason Start Date Expiration Date V isits Requested Visits Authorized [id number] Authorized 01/25/2025 01/25/2026 1 1 Encounter Details Date Type Department Care Team (Late st Contact Info) Description 01/25/2025 Orders Only [facility] CHC MED & PEDS 505 [place], [place] [phone] Mariella Vanegas MD [address] [place] [address] Transaminitis (Primary Dx); Glucosuria with normal serum [...] Description 04/08/2025 11:00 AM EDT Telemedicine [facility] 505 [place] [address] 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, JOSE 505 [place] [address] Scheduled Orders Name Type Priority Associated Diagnoses [...] PM EDT) Hepatitis A IgM Nonreactive Nonreactive [facility] Comment:IgM antibodies to DIAZ V not detected; does not exclude earlyacute or recovered HAV infection. ~Hepatitis B Surface Antibody NONREACTIVE Nonreactive [facility] Comment:Nonreactive: < 8.00 mIU/mL Hepatitis B Core Antibody Nonreactive Nonreactive [facility] Hepatitis C Antibody Nonreactive Nonreactive [facility] Comment:Antibodies to HCV no t detected; does not exclude early acuteHCV infection. Hepatitis B Surface Ag Negative Negative [facility] Blood Venous blood specimen / Unknown 01/25/2025 12:37 PM EDT 01/25/2025 2:09 PM EDT us Mariella Vanegas MD LAB BLOOD ORDERABLES Final Result Performing Organization Address City/[facility] Co de Phone Number [facility] [address] [place] [phone] * Iron And Total Iron Binding Capacity (01/25/2025 12:37 PM EDT) Iron 111 45 - 160 mcg/dL [facility] Total Iron Binding Capacity 325 228 - 428 mcg/dL [facility] Percent Iron Saturation 34 15 - 50 % [facility] Unsaturated Iron Binding 214 ug/dL [facility] Blood Venous blood specimen / Unknown 01/25/2025 12:37 PM EDT 01/25/2025 2:09 PM EDT us Mariella Vanegas MD LAB BLOOD ORDERABLES Final Result Performing Organization Address [facility] Co de Phone Number [facility] [address] [place] [phone] * Ferritin (01/25/2025 12:37 PM EDT) Ferritin 103 20 - 250 ng/mL [facility] Blood Venous blood specimen / Unknown 01/25/2025 12:37 PM EDT 01/25/2025 2:09 PM EDT us Mariella Vanegas MD LAB BLOOD ORDERABLES Final Result Performing Organization Address City/[facility]/ZIP Co de Phone Number [facility] [address] [place] [phone] * Prothrombin Time-INR (01/25/2025 12:37 PM EDT) Pathologist [facility] Prothrombin Time 11.0 10.9 - 12.4 SEC [facility] INTERNATIONAL NORM RATIO 1.0 0.9 - 1.1 [facility] Comment:INTERNATIONAL NORMAL IZED RATIO (INR) REFERENCE [...] BLOOD ORDERABLES Final Result Performing Organization Address [facility]/ZIP Co de Phone Number [facility] [address] [place] [phone] * Immunoglobulins, Quantitative, IgA, IgG, IgM (01/25/2025 12:37 PM EDT) Pathologist [facility] IMMUNOGLOBULIN G 713 600 - 1640 mg/dL [facility] IMMUNOGLOBULIN A 131 47 - 310 mg/dL [facility] Immunoglobulin M 85 50 - 300 mg/dL [facility] Comment:THIS TEST WAS PERFOR MED AT:[facility] [address] [phone] CHADWICK MD Blood Venous blood specimen / Unknown 01/25/2025 12:37 PM EDT 01/25/2025 2:09 PM EDT Mariella Vanegas MD LAB BLOOD ORDERABLES Final Result [facility] [address] [place] [phone] documented in this encounter Visit Diagnoses Diagnosis Transaminitis- Primary Nonspecific elevation of levels of transaminase or lactic acid dehydrogenase (LDH) Glucosuria with normal serum glucose documented in this encounter Additional Health Concerns Assessment Noted Time PHQ-9 Depression Total Score: 14 025 10:30 AM EDT documented as of this encounter Care Teams Garbage Pick Up Worker Relationship Specialty Start Date End Date Mariella Vanegas MD [address] [place] [phone] PCP - General Internal Medicine 06/13/18 documented as of this encounter
--- OUTSIDE RECORDS SUMMARY | 2025-03-04 13:38 | XMS_ITS | Encounter Summary ---
Author Organization [employer] Address [address] [facility] 7 [place] [address] Care Team Providers Care Time Cycle Operator Name Role Phone Mariella Vanegas MD Primary Care Provider [phone] Reason for Referral * Consultation (Routine) - Closed Specialty Diagnoses / Procedures Referred By Contjeanine t Referred To Contact Neurosurgery Diagnoses Spinal stenosis in cervical region Mariella Vanegas MD [address] [place] [address] Phone: tel: fax: Bony Soliz [facility] [place], [place] Phone: tel: fax: Referral ID Status Reason Start Date Expiration Date V isits Requested Visits Authorized [id number] Closed Specialty Services Required 09/14/2023 09/13/2024 1 1 Encounter Details Date Type Department Care Team (Late st Contact Info) Description 09/14/2023 Orders Only [facility] CH[facility] MED & PEDS [address] [place], [place] [phone] Mariella Vanegas MD [address] [place], [place] [phone] Spinal stenosis in cervical region (Primary Dx) [...] Upcoming Encounters Date Type Department Care Team ([facility] st Contact Info) Description 04/08/2025 11:00 AM EDT Telemedicine [facility] MED & PEDS [address] [place] [address] 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, JOSE 505 [place] [address] Scheduled Referrals Name Type Priority Associated Diagnoses [...] documented as of this encounter Care Teams Time Cycle Operator Relationship Specialty Start Date End Date Mariella Vanegas MD [address] [place] [address] PCP - General Internal Medicine 06/13/18 documented as of this encounter
--- OUTSIDE RECORDS SUMMARY | 2025-03-04 13:38 | XMS_ITS | Encounter Summary ---
Author Organization [employer] Address [address] [facility] 7[address] [place] [address] Care Team Providers Care Compressor Station Engineer Name Role Phone Mariella Vanegas MD Primary Care Provider [phone] Encounter Details Date Type Department Care Team (Late st Contact Info) Description 05/10/2022 Abstract [facility] MEDICINE [address] [place] [address] ProviderRupa MD Social History Tobacco Use Types [...] 04/08/2025 11:00 AM EDT Telemedicine [facility] CHC MED & PEDS [address] [place] [address] 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 RN 505 [place] [address] documented as of this encounter Visit Diagnoses Not on filedocumented in this encounter Care Teams Compressor Station Engineer Relationship Specialty Start Date End Date Mariella Vanegas MD [address] [place] [address] PCP - General Internal Medicine 06/13/18 documented as of this encounter
--- OUTSIDE RECORDS SUMMARY | 2025-03-04 13:38 | XMS_ITS | Encounter Summary ---
Author Organization [employer] Address [address] [facility] 7t [place] [address] Care Team Providers Care Asphalt Engineer Name Role Phone Mariella Vanegas MD Primary Care Provider [phone] Encounter Details Date Type Department Care Team ([facility] Contact Info) Description 01/26/2023 Orders Only [facility] MED & PEDS [address] [place], [place] [phone] Mariella Vanegas MD 505 [place], [place] [phone] Screening for STD (sexually transmitted disease) (Primary [...] Info) Description 04/08/2025 11:00 AM EDT Telemedicine [facility] MED & PEDS [address] [place], [place] [phone] 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 RN 505 [place], [place] [phone] documented as of this encounter Visit Diagnoses Diagnosis Screening for STD (sexually transmitted disease)- Primary Hypercholesterolemia Pure hypercholesterolemia documented in this encounter Care Teams Asphalt Engineer Relationship Specialty Start Date End Date Mariella Vanegas MD [address] [place] [address] PCP - General Internal Medicine 06/13/18 documented as of this encounter
--- OUTSIDE RECORDS SUMMARY | 2025-03-04 13:38 | XMS_ITS | Encounter Summary ---
Author Organization [employer] Address [address] [facility] 7t [place] [address] Care Team Providers Care Microsoft Developer Name Role Phone Mariella Vanegas MD Primary Care Provider [phone] Encounter Details Date Type Department Care Team ([facility] st Contact Info) Description 08/04/2023 Orders Only [facility] CHC MED & PEDS [address] [place], [place] [phone] Mariella Vanegas MD 505 [place] [address] Encounter for HIV pre-exposure prophylaxis (Primary Dx) [...] Info) Description 04/08/2025 11:00 AM EDT Telemedicine [facility] MED & PEDS [address] [place] [address] 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 RN [address] [place] [address] documented as of this encounter Procedures Procedure Name Priority Date/Time Associated Diagnosis Comments CONFIRMATORY SYPHILIS PROFILE Routine 08/04/2023 10:09 AM EST Encounter for HIV pre-exposure prophylaxis documented in this encounter Results * (ABNORMAL) Confirmatory Syphilis Profile (08/04/2023 10:09 AM EST) Rapid Plasma Reagin, Quant Non-React omid Nonreactive [facility] Treponema pallidum Antibody, Particle Agglutination Reactive( A) Nonreactive [facility] 08/04/2023 10:0 9 AM EST 08/04/2023 12:10 PM EST us Mariella Vanegas MD LAB BLOOD ORDERABLES Final Result [facility] [address] [place] [phone] [phone] documented in this encounter Visit Diagnoses Diagnosis Encounter for HIV pre-exposure prophylaxis- Primary documented in this encounter Additional Health Concerns Assessment Noted Time PHQ-9 Depression Total Score: 1 02/05/20 23 3:35 PM EDT documented as of this encounter Care Teams Microsoft Developer Relationship Specialty Start Date End Date Mariella Vanegas MD [address] [place] [address] PCP - General Internal Medicine 06/13/18 documented as of this encounter
--- OUTSIDE RECORDS SUMMARY | 2025-03-04 13:38 | XMS_ITS | Encounter Summary ---
Author Organization [employer] Address [address] [facility] 7 [place] [address] Care Team Providers Care Cardroom Drawing Runner Name Role Phone Mariella Vanegas MD Primary Care Provider [phone] Reason for Visit * Reason Onset Date Comments Nurse Triage 01/07/2025 Encounter Details Date Type Department Care Team ([facility] st Contact Info) Description 01/07/2025 Telephone C CHC MED & PEDS [address] [place] [address] Mariella Vanegas MD [address] [place] [address] Nurse Triage Social History Tobacco Use Types [...] Ptis advised no available apt[facility] today in [facility]. Pt is advised to come to [facility] to be seen by provider and Pt agrees with disposition and knows where the WIC is located. Insurance is not verified. Medicare/Personal On Demand. Pt reports insurance is in good standing [...] caller accepted this outcome. Contact pt at [phone] documented in this encounter Plan of Treatment Upcoming Encounters Date Type Department Care Team ([facility] st Contact Info) Description 04/08/2025 11:00 AM EDT Telemedicine [facility] CHC MED & PEDS [address] [place] [address] 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 RN 505 [place] [address] documented as of this encounter Visit Diagnoses Diagnosis Chronic pain disorder Chronic pain syndrome documented in this encounter Additional Health Concerns Assessment Noted Time PHQ-9 Depression Total Score: 14 024 4:05 PM EDT documented as of this encounter Care Teams Cardroom Drawing Runner Relationship Specialty Start Date End Date Mariella Vanegas MD [address] [place] [address] PCP - General Internal Medicine 06/13/18 documented as of this encounter
--- OUTSIDE RECORDS SUMMARY | 2025-03-04 13:38 | XMS_ITS | Encounter Summary ---
Author Organization [employer] Address [address] [facility] 7 [place] [address] Care Team Providers Care Supervisor Rod Placing Name Role Phone Mariella Vanegas MD Primary Care Provider [phone] Encounter Details Date Type Department Care Team ([facility] Contact Info) Description 05/30/2022 Orders Only [facility] MEDICINE [address] [place] [address] Mariella Vanegas MD [address] [place], [place] [phone] On pre-exposure prophylaxis for HIV (Primary Dx) [...] Upcoming Encounters Date Type Department Care Team ([facility] Contact Info) Description 04/08/2025 11:00 AM EDT Telemedicine [facility] CHC MED & PEDS 505 [place], [place] [phone] 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 RN 505 [place], [place] [phone] documented as of this encounter Visit Diagnoses Diagnosis On pre-exposure prophylaxis for HIV- Primary documented in this encounter Care Teams Supervisor Rod Placing Relationship Specialty Start Date End Date Mariella Vanegas MD [address] [place] [address] PCP - General Internal Medicine 06/13/18 documented as of this encounter
--- OUTSIDE RECORDS SUMMARY | 2025-03-04 13:38 | XMS_ITS | Encounter Summary ---
Author Organization [employer] Address [address] [facility] 7t [place] [address] Care Team Providers Care Poured Concrete Wall Technician Name Role Phone Mariella Vanegas MD Primary Care Provider [phone] Encounter Details Date Type Department Care Team ([facility] st Contact Info) Description 01/29/2025 Results Follow-Up [facility] CHC MED & PEDS [address] [place] [address] Mariella Vanegas MD [address] [place] [address] Immunoglobulins, Quantitative, IgA, IgG, IgM, Prothrombin Time-INR, [...] Upcoming Encounters Date Type Department Care Team ([facility] st Contact Info) Description 04/08/2025 11:00 AM EDT Telemedicine [facility] MED & PEDS [address] [place] [address] 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, JOSE 505 [place] [address] documented as of this encounter Visit Diagnoses Not on filedocumented in this encounter Additional Health Concerns Assessment Noted Time PHQ-9 Depression Total Score: 14 025 10:30 AM EDT documented as of this encounter Care Teams Poured Concrete Wall Technician Relationship Specialty Start Date End Date Mariella Vanegas MD 505 [place] [address] PCP - General Internal Medicine 06/13/18 documented as of this encounter
--- OUTSIDE RECORDS SUMMARY | 2025-03-04 13:38 | XMS_ITS | Encounter Summary ---
Author Organization [employer] Address [address] [facility] 7t [place] [address] Care Team Providers Care Senior Data Architect Name Role Phone Mariella Vanegas MD Primary Care Provider [phone] Encounter Details Date Type Department Care Team (Late st Contact Info) Description 02/02/2023 Abstract [employer] [facility] [address] [place] [address] Mariella Vanegas MD [address] [place] [address] Social History Tobacco Use Types Packs/Day Years [...] -9 Score 1 02/04/2023 3:35 PM EDT Elisabeth Lyman [place] documented as of this encounter Plan of Treatment Upcoming Encounters Date Type Department Care Team ([facility] st Contact Info) Description 04/08/2025 11:00 AM EDT Telemedicine [facility] CHC MED & PEDS [address] [place] [address] 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, RN [address] [place] [address] documented as of this encounter Visit Diagnoses Not on filedocumented in this encounter Care Teams Senior Data Architect Relationship Specialty Start Date End Date Mariella Vanegas MD [address] [place] [address] PCP - General Internal Medicine 06/13/18 documented as of this encounter
== END ==
LOC: HO.CARD 10:59
PROVIDERS: Absent Provider Physician Assistant Medical; PCP Internal Medicine; Visit Provider Internal Medicine
DX: R00.2 Palpitations (principal); M25.521 Pain in right elbow; J40 Bronchitis, not specified as acute or chronic
CPT/HCPCS: 73080; 93242; 99212

== ENCOUNTER → 2025-03-04 11:01 | Outpatient (BNV) | payer OTHER, SELFPAY | PROVIDERS: Absent Provider Physician Assistant Medical; PCP Internal Medicine; Visit Provider Internal Medicine Cardiovascular Disease | DX: I49.3 Ventricular premature depolarization (principal) | CPT/HCPCS: 93244 ==

== ENCOUNTER 2025-03-04 11:34 | Outpatient (AMB) | payer OTHER, SELFPAY ==
--- NOTE | 2025-03-04 12:02 | AM.OFFWIN_ITS ---
Intake Vital Signs 03/04/25 12:03 Height 5 ft 10 in Weight 179 lb BMI 25.7 BP 138/98 H Blood Pressure Location Lt brachial Position Sitting Respiration 16 Pulse 62 Pulse Source Pulse Oximeter Temp 98.0 F Temp Source Oral Pulse Oximetry (%) 97 Oxygen Delivery Method Room Air Intake Visit Reasons: EP elbow pain for 6 weeks Patient Tobacco Use Status: Current everyday Tobacco user Allergies bee pollen (BEE STINGS) Allergy (Severe, Verified 03/04/25 12:03) ANAPHYLAXIS varenicline (From Chantix) Adverse Reaction (Severe, Verified 03/04/25 12:03) Agitated HPI HPI Comments History of Present Illness Details History of Present Illness - The patient is a 54-year-old male pres enting with right elbow pain. - The elbow pain has persisted for over six weeks. - Initially consulted primary care for a neck muscle pull and was prescribed muscle relaxants and anti-inflammatory medications. - Despite treatment, the elbow pain ilsa ins intense, especially when lifting objects like a cup of coffee. - The patient reports swelling in three fingers, which exacerbates the discomfort. - The patient has a history of arthritis , which may contribute to the current symptoms. - Recently had a heart monitor placed at a hospital today, indicating ongoing cardiac evaluation. - He denies numbness or tingling. - He denies trauma or falls. - He does not work and he is on disabili ty. - He is right hand dominant. Physical Exam General: Cooperative, healthy appearing, comfortable, no acute distress and well developed Orientation: Patient oriented x3 Respiratory: Normal respiratory effort and able to speak in complete sentences. Clear to auscultation bilaterally Cardiovascular: Regular rate and rhythm. Normal S1 and S2. Pulses are 2+ on the UE bilaterally. Skin: No rashes or lesions noted Neuro: Sensation is intact. Extremities: Swelling noted on the right lateral elbow. No erythema noted. No deformity noted. No TTP of the olecranon or medial epicondyle. TTP of the lateral epicondyle. No TTP of the right upper arm or forearm. FROM of the right elbow. Flexion and extension is intact. Supination and pronation is intact. FROM of the wrist. Hand preschool substitute teacher is intact. Patient was informed and verbally consented to the use of an ambient scribe for clinic note documentation during this visit. [facility] Medical History COPD (chronic obstructive pulmonary disease) Bronchitis Tobacco dependence Chest pain Dyspnea Mediastinal mass Abnormal PFTs (pulmonary function tests) Depressive disorder Anxiety Hypospadias in male Surgical History History of back surgery History of knee surgery Family History (Updated 11/15/24 @ 13:16 by Marissa Forbes) Mother High blood pressure Father Liver cancer Diabetes Social History (Updated 11/15/24 @ 13:17 by Marissa Forbes) Alcohol intake: current Alcohol intake frequency: a few times a week Patient Tobacco Use Status: Current everyday Tobacco user Tobacco use type: Cigarette Years Smoked: Since 16 years old Review of Systems Const All systems reviewed & are unremarkable except as noted in HPI and below Physical Exam Vital Signs: Last Vital Signs Temp 98.0 F 03/04/25 12:03 Pulse 62 03/04/25 12:03 Resp 16 03/04/25 12:03 BP 138/98 H 03/04/25 12:03 Pulse Ox 97 03/04/25 12:03 Oxygen Delivery Method Room Air 03/04/25 12:03 BMI result Body Mass Index 25.7 Results Reviewed Results Reviewed: reviewed the xray in the office today Assessment & Plan Assessment & Plan (1) Right elbow pain: Code(s): M25.521 - Pain in right elbow Plan Most likely tendonitis vs lateral epicondylitis vs arthritis vs bursitis plan - Plan to obtain an x-ray of the elbow to assess for structural abnormalities. - rest, ice and elevation - wear elbow sleeve - tylenol or motrin as needed for pain - flexeril as needed - continue with the oxycodone - Suggested a eferral to orthopedics for further evaluation and management. Orders: Orders XR elbow RT min 3V Today J40 - Bronchitis, not specified as acute or chronic, M25.521 - Pain in right elbow Medications: New arm brace (Elbow Compression Sleeve) As directed 1 ea 0RF cyclobenzaprine 5 mg PO Q8H PRN 20 tabs 0RF Muscle Spasm 7 days Coding Level of Care Code Est Pt Level 4 (38131) Diagnoses Right elbow pain M25.521
[2025-03-04 12:03] VITALS: BP 138/98; PULSE 62; RESP 16; TEMP 36.7; O2SAT 97; BMI 25.7
== END 2025-03-04 13:13 | disposition home or self-care (01) ==
PROVIDERS: PCP Internal Medicine; Visit Provider Physician Assistant Medical
DX: M25.521 Pain in right elbow (principal)

== ENCOUNTER → 2025-03-04 13:02 | Outpatient (BNV) | payer OTHER, SELFPAY | PROVIDERS: Absent Provider Physician Assistant Medical; PCP Internal Medicine; Visit Provider Radiology Diagnostic Radiology | DX: M25.521 Pain in right elbow (principal) | CPT/HCPCS: 73080 ==

== ENCOUNTER 2025-04-09 13:01 | Outpatient (AMB) | payer OTHER, SELFPAY ==
--- NOTE | 2025-04-09 13:05 | A.OFFVIS_ITS ---
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 Patient reports pain began 3 months ago. He complains of painful flexion and extension with associated swelling, numbness, and tingling of the right thumb, index, and middle fingers. Patient reports previous right middle finger injury as a teenager. He denies any surgeries to the right upper extremity. Patient is interested on a cortisone injection today. 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 Patient reports pain began 3 months ago. He complains of painful flexion and extension with associated swelling, numbness, and tingling of the right thumb, index, and middle fingers. Patient reports previous right middle finger injury as a teenager. He denies any surgeries to the right upper extremity. Patient is interested on a cortisone injection today. [facility] Medical History (Updated 04/09/25 @ 17:36 by NOEMÍ Alvarez) COPD (chronic obstructive pulmonary disease) Bronchitis Tobacco dependence Chest pain Dyspnea Mediastinal mass Abnormal PFTs (pulmonary function tests) Depressive disorder Anxiety Hypospadias in male Surgical History History of back surgery History of knee surgery Family History (Updated 11/15/24 @ 13:16 by Marissa Forbes) Mother High blood pressure Father Liver cancer Diabetes Social History (Updated 04/09/25 @ 13:11 by VARSHA Farley) Alcohol intake: current Alcohol intake frequency: a few times a week Patient Tobacco Use Status: Current everyday Tobacco user Tobacco use type: Cigarette Years Smoked: Since 16 years old Current occupational status: disabled Current occupation: rt handed Review of Systems Const All systems reviewed & are unremarkable except as noted in HPI and below Physical Exam Vital Signs: BMI result Body Mass Index 25.7 Extrem Other: Patient is alert, oriented, and in no acute distress. Neuro: Normal sensation of the tips of all digits of the right hand at this time Vascular: Cap refill brisk Pain: Tenderness to palpation of the lateral epicondyle of right elbow Positive Cozen's test in the right No tenderness to palpation of the olecranon process or medial epicondyle of right elbow ROM: Patient is able to make a closed fist and extend all digits of the right hand fully Range of motion of the right elbow full and intact, but painful over the lateral epicondyle Skin: No lacerations or abrasions. General: No ecchymosis, erythema, or evidence of infection. Psych: Appears grossly normal Affect normal Attitude cooperative Assessment & Plan Assessment & Plan (1) Right lateral epicondylitis: Code(s): M77.11 - Lateral epicondylitis, right elbow Category: Medical Plan 1. Right lateral epicondylitis Patient is educated about this condition Patient is educated about the typical treatment course At this time, patient states he is interested in a steroid injection, but that he has concerns over efficacy because he needs to finish a project at his house over the weekend and can not take it easy Therefore, patient is booked an appointment next week for right lateral epicondyle injection Patient will be referred to occupational therapy at that time Patient understands this in his amenable to this plan Coding Level of Care Code New Pt Level 3 (33919) Diagnoses Right lateral epicondylitis M77.11
[2025-04-09 13:06] VITALS: BMI 25.7
== END 2025-04-09 13:36 | disposition home or self-care (01) ==
LOC: HO.HOS 13:02
PROVIDERS: PCP Internal Medicine
DX: M77.11 Lateral epicondylitis, right elbow (principal)
CPT/HCPCS: 99203

== ENCOUNTER → 2025-04-09 13:01 | Outpatient (BNVA) | payer OTHER, SELFPAY | PROVIDERS: PCP Internal Medicine | DX: M25.521 Pain in right elbow (principal); M77.11 Lateral epicondylitis, right elbow | CPT/HCPCS: 99202 ==

== ENCOUNTER 2025-04-17 07:29 | Outpatient (REF) | payer OTHER, SELFPAY ==
--- NOTE | ~2025-04-17 | US_ITS ---
EXAMINATION: US ABDOMEN COMPLETE WITH LIVER ELASTOGRAPHY HISTORY: transaminitis TECHNIQUE: Real-time grayscale ultrasound imaging of the abdomen was performed and images were reviewed. COMPARISON: There are no prior studies available for comparison. FINDINGS: Liver: The right lobe of the liver measures 14.0 cm in size. The left lobe of the liver measures 8.3 cm in size. The liver demonstrates increased echotexture, consistent with steatosis. No focal mass or intrahepatic biliary ductal dilatation is identified. There is normal hepatopedal flow in the portal vein. Ultrasound elastography of the liver was performed with 10 separate measurements of the liver parenchyma with the patient in the supine position. Measurements were obtained approximately 2 cm below Linda's capsule and perpendicular to the capsule. The median shear wave velocity is 1.48 m/s. The interquartile range/median (IQR/median) is 0.03. Gallbladder and biliary tree: The gallbladder is unremarkable, without evidence of calculi, wall thickening, or pericholecystic fluid. There is no sonographic Sanz sign. The common bile duct is normal in caliber measuring 2 mm. Kidneys: The right kidney measures 11.5 cm in length. The left kidney measures 11.3 cm in length. The kidneys are unremarkable, without evidence of masses, hydronephrosis, or calculi. Pancreas: The pancreas is obscured by bowel gas. Spleen: The spleen is normal in size and contour, measuring 9.3 cm in length. Abdominal aorta and inferior vena cava: The visualized portions of the abdominal aorta and inferior vena cava are normal in caliber. There is no free fluid in the abdomen. US/US abdomen comp w elastography IMPRESSION: Hepatic steatosis. The median shear wave velocity in the liver is 1.48 m/s, corresponding to a median liver stiffness of 6.63 kPa. The IQR/median value is 0.03. This is indicative of a quality data set. Findings are indicative of a low elastography value which rules out advanced chronic liver disease in asymptomatic patients. REFERENCE: Society of Radiologists in Ultrasound Liver Stiffness Thresholds (2020): LIVER STIFFNESS THRESHOLDS: *Shear wave velocity less than 1.3 m/s (Liver Stiffness equal or less than 5 kPa): High probability of being normal. *Shear wave velocity less than 1.7 m/s (Liver Stiffness less than 9 kPa): In the absence of other known clinical signs, rules out compensated advanced chronic liver disease. *Shear wave velocity between 1.7-2.1 m/s (Liver Stiffness 9-13 kPa): Suggestive of compensated advanced chronic liver disease but need further test for confirmation. *Shear wave velocity between 2.1-2.4 m/s (Liver Stiffness 13-17 kPa): Rules in compensated advanced chronic liver disease. *Shear wave velocity greater than 2.4 m/s (Liver Stiffness over 17 kPa): Suggestive of clinically significant portal hypertension. QUALITY OF DATA SET: *IQR/Median value equal or less than 0.15 implies a quality data set. *IQR/Median value over 0.15 implies a poor quality data set. SIGNIFICANT CHANGE FROM PRIOR EXAM: Significant change if liver stiffness measurement is 10% or greater from prior exam. OTHER CONSIDERATIONS: The stage of liver fibrosis may be overestimated in the setting of acute hepatitis, liver inflammation, elevated liver function tests, hepatic vascular congestion, obstructive cholestasis, non-fasting state, and infiltrative diseases such as amyloidosis and lymphoma. In some patients with NAFLD, the liver stiffness thresholds for compensated advanced chronic liver disease may be lower. In causes other than viral hepatitis and NAFLD, liver stiffness thresholds are not well established. Electronically signed by: Bony Flores MD 04/17/2025 08:[address] [facility]
--- OUTSIDE RECORDS SUMMARY | 2025-04-17 07:33 | XMS_ITS | Encounter Summary ---
Author Organization [employer] Address [address] [facility] [address] [address] [place] [address] Care Team Providers Care Plater Helper Name Role Phone Mariella Vanegas MD Primary Care Provider [phone] Reason for Visit * Reason Comments Med Change Request Encounter Details Date Type Department Care Team ([facility] Contact Info) Description 02/03/2023 Refill [facility] [address] [place] [address] Mariella Vanegas MD [address] [place] [address] Hypercholesterolemia Social History Tobacco Use Types Packs/Day [...] Care Team (Late st Contact Info) Description 06/24/2025 10:30 AM EST Telemedicine [facility] [address] [place] [address] 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, JOSE [address] [place] [address] documented as of this encounter Visit Diagnoses Diagnosis Hypercholesterolemia Pure hypercholesterolemia documented in this encounter Care Teams Plater Helper Relationship Specialty Start Date End Date Mariella Vanegas MD [address] [place] [address] PCP - General Internal Medicine 06/13/18 documented as of this encounter
--- OUTSIDE RECORDS SUMMARY | 2025-04-17 07:33 | XMS_ITS | Encounter Summary ---
Author Organization [employer] Address [address] [place] [address] [address] [place] [address] Care Team Providers Care Customer Support Professional Name Role Phone Mariella Vanegas MD Primary Care Provider [phone] Encounter Details Date Type Department Care Team ([facility] Contact Info) Description 05/30/2022 Orders Only [facility] [address] [place] [address] Mariella Vanegas MD [address] [place], [place] [phone] On pre-exposure prophylaxis for HIV (Primary Dx) [...] Upcoming Encounters Date Type Department Care Team ([facility] Contact Info) Description 06/24/2025 10:30 AM EST Telemedicine [facility] [address] [place], [place] [phone] 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 RN [address] [place], [place] [phone] documented as of this encounter Visit Diagnoses Diagnosis On pre-exposure prophylaxis for HIV- Primary documented in this encounter Care Teams Customer Support Professional Relationship Specialty Start Date End Date Mariella Vanegas MD [address] [place] [address] PCP - General Internal Medicine 06/13/18 documented as of this encounter
--- OUTSIDE RECORDS SUMMARY | 2025-04-17 07:33 | XMS_ITS | Encounter Summary ---
Author Organization [employer] Address [address] [facility] [address] [place] [address] Care Team Providers Care Plasma Cutting Machine Operator Name Role Phone Mariella Vanegas MD Primary Care Provider [phone] Reason for Visit * Reason Onset Date Comments Lab Orders 07/20/2023 Encounter Details Date Type Department Care Team ([facility] Contact Info) Description 07/20/2023 Telephone [facility] [address] [place], [place] [phone] Mariella Vanegas MD [address] [place] [address] Lab Orders Social History Tobacco Use Types [...] - 07/20/2023 9:42 AM EST [facility] requesting a referral for xray to rule out metal in pt eyes . Best contact # [phone]. . documented in this encounter Plan of Treatment Upcoming Encounters Date Type Department Care Team ([facility] Contact Info) Description 06/24/2025 10:30 AM EST Telemedicine [facility] [address] [place] [address] 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, JOSE [address] [place] [address] documented as of this encounter Visit Diagnoses Not on filedocumented in this encounter Additional Health Concerns Assessment Noted Time PHQ-9 Depression Total Score: 1 02/05/20 23 3:35 PM EDT documented as of this encounter Care Teams Plasma Cutting Machine Operator Relationship Specialty Start Date End Date Mariella Vanegas MD [address] [place] [address] PCP - General Internal Medicine 06/13/18 documented as of this encounter
--- OUTSIDE RECORDS SUMMARY | 2025-04-17 07:33 | XMS_ITS | Clinical Summary ---
Author Organization [employer] Address [address] [place] [address] Care Team Providers Care Attendant Child Activity Name Role Phone Mariella Vanegas MD Primary Care Provider [phone] Allergies Active Allergy Reactions Criticality Noted Date [...] Active lamoTRIgine (LaMICtal XR) 100 mg tablet sustained-releas e 24 hour 24 hr tablet take 1 tablet by oral route every day swallowing whole. Do not crush, chew and/or divide. Take with Lamictal XR 50 mg 05/13/20 21 Active PARoxetine (Paxil) 20 MG tablet Take 1 tablet by mouth. daily 12/02/19 22 Active azithromycin (Zithromax Z-Matthew) 250 MG tablet Take 2 tabs day 1 and then 1 tab daily to finish 6 tablet 05/20/20 23 Active loperamide ([facility] Anti-Diarrheal) 2 MG tabletIndication s:Chronic pain disorder TAKE 1 TABLET BY MOUTH 2 TIMES A DAY NEEDED FOR DIARRHEA 60 tablet 5 05/20/20 23 Active Diclofenac Sodium 1 % gelIndications:C hronic right shoulder pain APPLY TO THE AFFECTED AREA 3 TIMES A DAY. 100 g 07/28/19 24 Active chlorhexidine (Peridex) 0.12 % solution RINSE 15 MLS IN MOUTH OR THROAT IF NEEDED FOR WOUND CARE FOR UP TO 14 DAYS 473 mL 2 12/09/19 24 Active EPINEPHrine (EpiPen 2-Matthew) 0.3 MG/0.3ML injection syringeIndicatio ns:Bee sting allergy Inject 0.3 mL (0.3 mg) as directed 1 (one) time for 1 dose. 1 each 01/26/20 24 Active diphenhydrAMINE (BENADryl) 25 MG capsule Take 1 capsule (25 mg) by mouth every 6 (six) hours if needed for itching. 30 capsule 01/26/20 24 Active atorvastatin (Lipitor) 40 MG tabletIndication s:Hypercholester olemia Take 1 tablet (40 mg) by mouth Once per day. 30 tablet 08/14/19 25 2025 Active tiZANidine (Zanaflex) 4 MG tabletIndication s:Neck pain on right side Take 1 tablet (4 mg) by mouth every 8 (eight) hours if needed for muscle spasms for up to 7 days. 20 tablet 01/08/20 25 Active HEMOGLOBIN A1C, HBA1C, TEST by In Vitro route. Active oxyCODONE-acetam inophen (Percocet) 7.5-325 MG tabletIndication s:MINER PICK checked 05/17/22 Take 1 tablet by mouth if needed each day for severe pain. 28 tablet 03/04/20 25 Active Diclofenac Sodium 1 % gelIndications:L ateral epicondylitis of right elbow To apply to the affected area 3 times a day. 100 g 1 03/07/20 25 Active ketoconazole (NIZOral) 2 % shampooIndicatio ns:Dandruff in adult Apply topically 2 (two) times a week. 120 mL 03/07/20 25 Active Fluocinolone Acetonide Scalp ([place]-Smoothe/F S Scalp) 0.01 % oilIndications:D andruff in adult To apply 2 times a week, cover the head w/ a durag after. 118 mL 1 03/07/20 25 Active naloxone (Narcan) 4 mg/0.1 mL nasal spray Administer 1 spray (4 mg) into affected nostril(s) if needed for opioid reversal. 2 each 1 04/08/20 25 Active naloxone (Narcan) 4 mg/0.1 mL nasal spray Administer 0.1 mL into affected nostril(s). 08/06/19 22 2024 Discontinued(R eorder (will not trigger notification to Pharmacy)) Active Problems Problem Noted Date Diagnosed Date Long-term current use of opiate analgesic 2024 Hypercholesterolemia 11/25/2022 Herpes simplex type 1 infection 07/08/2022 Hypertensive disorder 02/09/2021 Cervical spine disease 05/08/2018 Spinal stenosis in cervical region 05/08/2018 Spinal stenosis of lumbar re gion with neurogenic claudication 11/10/2017 Collapse of vertebra ([facility]) 11/10/2017 Depressive disorder 08/26/2016 Anxiety 08/29/2012 Backache 08/29/2012 Encounters Date Type Department Care Team Description 04/08/2025 11:00 AM EDT Telemedicine [facility] [address] [place] [address] 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 RN Chronic pain disorder 04/08/2025 Refill [facility] [address] [place] [address] 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 RN 04/08/2025 Travel 04/01/2025 Travel 03/07/2025 3:30 PM EDT Office Visit [facility] [address] [place] [address] Mariella Vanegas MD Lateral epicondylitis of right elbow (Primary Dx); Subungual hematoma of digit of hand, initial encounter; Dandruff in adult; Screening examination for STD (sexually transmitted disease); Screen for STD (sexually transmitted disease) 03/07/2025 Travel 03/05/2025 Travel 03/04/2025 Results Follow-Up [facility] [address] [place] [address] Mariella Vanegas MD XR Elbow 3+ Views Right 03/04/2025 Refill [facility] [address] [place] [address] Mariella Vanegas MD Chronic pain disorder 03/04/2025 Telephone [facility] [address] [place] [address] Mariella Vanegas MD Nurse Triage 03/04/2025 Orders Only [facility] External Provider, [facility] 01/29/2025 Results Follow-Up [facility] [address] [place] [address] Mariella Vanegas MD Immunoglobulins, Quantitative, IgA, IgG, IgM, Prothrombin Time-INR, Ferritin, Additional followed-up results: 2 01/25/2025 Results Follow-Up [facility] [address] [place] [address] Tita Castro, JOSE CBC auto differential, Comprehensive Metabolic Panel, Vitamin D, 25-Hydroxy, Total, Immunoassay, Additional followed-up results: 5 01/25/2025 Orders Only [facility] [address] [place] [address] Mariella Vanegas MD Transaminitis (Primary Dx); Glucosuria with normal serum glucose 01/22/2025 10:15 AM EDT Office Visit [facility] [address] [place] [address] Mariella Vanegas MD Neck pain on right side (Primary Dx); Other fatigue; Increased frequency of urination 01/22/2025 Travel 01/21/2025 Travel from Last 3 Months Immunizations Immunization Administration Dates Next Due INFLUENZA VACCINE QUADRIVALE NT RECOMBINANT PRESERVATIVE FREE RIV4 03/17/2020 Influenza Injectable Quadriv alant Preservative Free IIV4 MDCK 02/09/2023 Influenza injectable quadriv alent IIV4 with preservative 04/26/2018 Influenza, IIV3, injectable 04/30/2014 Influenza, seasonal, injecta ble, preservative free 03/29/2024 Pneumococcal Conjugate PCV 20 12/08/2023 Pneumococcal Polysaccharide PPSV23 04/30/2014 Tdap 08/26/2016 Zoster, Recombinant 10/24/2023, 3,11/25/2022(Defer red: Other - Will be administered at [...] Sign Reading Time Taken Comments Blood Pressure 149/76 03/07/2025 3:19 PM EDT Pulse 95 03/07/2025 3:19 PM EDT Temperature 36.6 C (97.8 F) 01/22/2025 10:01 AM EDT Respiratory Rate 20 03/07/2025 3:19 PM EDT Oxygen Saturation 96% 03/07/2025 3:19 PM EDT Inhaled Oxygen Concentration - - Weight 80.7 kg (178 lb) 03/07/2025 3:19 PM EDT Height 180.3 cm (5' 11 ) 03/07/2025 3:19 PM EDT Body Mass Index 24.83 03/07/2025 3:19 PM EDT Plan of Treatment Upcoming Encounters Date Type Department Care Team ([facility] st Contact Info) Description 06/24/2025 10:30 AM EST Telemedicine [facility] [address] [place] [address] 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, RN [address] [place] [address] Health Maintenance Due Date Last Done Comments CT Colonography 1972 Dental Oral Exam 1972 Dental Prophylaxis 1972 Dental X-Ray: Bitewings 1972 Dental X-Ray: Full Mouth 1972 FIT DNA/Cologuard 1972 FIT 1972 FOBT 1972 Sigmoidoscopy 1972 Family Planning (PISQ) 1987 Hepatitis B Vaccines (1 of 3 - 19+ 3-dose series) 1991 COVID-19 Vaccine (2024- season) 2025 10/23/2020, 09/25/2020 Influenza Vaccine (#1) 2025 , 02/09/2023, 03/17/2020, Additional history exists Depression Monitoring 07/25/2025 01/22/2025, 025 SDOH Screening 07/27/2025 07/27/2024 Alcohol/Substance Use Screening 08/13/2025 08/13/2024 Disability Screening 01/21/2026 01/21/2025 Diabetes: Hemoglobin A1C 01/22/2026 01/22/2025 Tobacco Screening 03/07/2026 03/07/2025 DTaP/Tdap/Td Vaccines (2 - Td or Tdap) [...] Neck pain on right side Other fatigue LIPID PANEL, STANDARD Routine 06/25/2024 2:16 PM [...] PM EDT Narrative 03/04/2025 1:27 PM EDT [address] [address] XRay Report Signed Patient: Violette Ovalle MR#: [id number] 6 : 1970 Acct:[id number] Age/Sex: 54 / M ADM Date: 03/04/25 Loc: [facility] Attending Dr: José Katz MD Ordering Physician: HARESH GROSSAMN Date of Service: 03/04/25 Procedure(s): XR elbow RT min 3V Accession Number(s): [id number] cc: Mariella Vanegas MD; HARESH GROSSMAN Reason [...] IMPRESSION: Unremarkable right elbow. Electronically signed by: Chadnler Elmore MD 03/04/2025 01:24 PM EDT Dictated By: Chandler Elmore MD Signed By: <Electronically signed by Chandler Elmore MD in OV> 03/04/25 1324 DD/ 1303 TD/TT: 03/04/25 1308 Fire Control Technician B: Procedure Note Donotuseinterpreter, Image - 03/04/[address] [address] XRay Report Signed Patient: Violette Ovalle LMR#: [id number] 6 : 1970Acct:[id number] Age/Sex: 54 / MADM Date: 03/04/25 Loc: HO.CARD Attending Dr: José Katz MD Ordering Physician: HARESH GROSSMAN Date of Service: 03/04/25 Procedure(s): XR elbow RT min 3V Accession Number(s): [id number] cc: Mariella Vanegas MD; HARESH GROSSMAN Reason [...] 03/04/25 1324 DD/ 1303 TD/TT: 03/04/25 1308 Fire Control Technician B: [facility] External Provider IMG XR PROCEDURES Final Result * Hepatitis Panel, General (01/25/2025 12:37 PM EDT) Hepatitis A IgM Nonreactive Nonreactive [facility] Comment:IgM antibodies to DIAZ V not detected; does not exclude earlyacute or recovered HAV infection. ~Hepatitis B Surface Antibody NONREACTIVE Nonreactive [facility] Comment:Nonreactive: < 8.00 mIU/mL Hepatitis B Core Antibody Nonreactive Nonreactive [facility] Hepatitis C Antibody Nonreactive Nonreactive [facility] Comment:Antibodies to HCV no t detected; does not exclude early acuteHCV infection. Hepatitis B Surface Ag Negative Negative [facility] Blood Venous blood specimen / Unknown 01/25/2025 12:37 PM EDT 01/25/2025 2:09 PM EDT Mariella Vanegas MD LAB BLOOD ORDERABLES Final Result [facility] [address] [place] [phone] * Iron And Total Iron Binding Capacity (01/25/2025 12:37 PM EDT) Iron 111 45 - 160 mcg/dL [facility] Total Iron Binding Capacity 325 228 - 428 mcg/dL [facility] Percent Iron Saturation 34 15 - 50 % [facility] Unsaturated Iron Binding 214 ug/dL [facility] Blood Venous blood specimen / Unknown 01/25/2025 12:37 PM EDT 01/25/2025 2:09 PM EDT us Mariella Vanegas MD LAB BLOOD ORDERABLES Final Result Performing Organization Address [facility] Number [facility] [address] [place] [phone] * Prothrombin Time-INR (01/25/2025 12:37 PM EDT) Prothrombin Time 11.0 10.9 - 12.4 SEC [facility] INTERNATIONAL NORM RATIO 1.0 0.9 - 1.1 [facility] Comment:INTERNATIONAL NORMAL IZED RATIO (INR) REFERENCE [...] ORDERABLES Final Result Performing Organization Address [facility] de Phone Number [facility] [address] [place] [phone] * Immunoglobulins, Quantitative, IgA, IgG, IgM (01/25/2025 12:37 PM EDT) IMMUNOGLOBULIN G 713 600 - 1640 mg/dL [facility] IMMUNOGLOBULIN A 131 47 - 310 mg/dL [facility] Immunoglobulin M 85 50 - 300 mg/dL [facility] Comment:THIS TEST WAS PERFOR MED AT:[facility] [place] [phone] CHADWICK MD Blood Venous blood specimen / Unknown 01/25/2025 12:37 PM EDT 01/25/2025 2:09 PM EDT Mariella Vanegas MD LAB BLOOD ORDERABLES Final Result Performing Organization Address [facility] Co de Phone Number [facility] [address] [place] [phone] * Ferritin (01/25/2025 12:37 PM EDT) Pathologist [facility] Ferritin 103 20 - 250 ng/mL [facility] Blood Venous blood specimen / Unknown 01/25/2025 12:37 PM EDT 01/25/2025 2:09 PM EDT Mariella Vanegas MD LAB BLOOD ORDERABLES Final Result Performing Organization Address [facility] Co de Phone Number [facility] [address] [place] [phone] * (ABNORMAL) Urinalysis, Complete, with Reflex to Culture (01/22/2025 10:37 AM EDT) Pathologist [facility] Color Urine Yellow [facility] Appearance Urine Clear [facility] PH 5.5 5.0 - 9.0 [facility] Glucose Urine UA 100(A) Negative mg/dL [facility] Urine Blood Negative Negative [facility] Specific Wilkinson - Urine 1.025 1.005 - 1.025 [facility] Urine Protein Trace Neg-Trace mg/dL [facility] Urine Ketones Negative Negative mg/dL [facility] Nitrite Urine Negative Negative [facility] Leukocyte Esterase Urine Negative Negative [facility] RBC Urine 0-2 0 - 2 /HPF [facility] Urine WBC 0-5 0 - 5 /HPF [facility] Urine Squamous Epithelial Cell 0-2 0 - 2 /HPF [facility] Urine Bacteria None Seen None Seen [facility] Hyaline Casts, Urine 0-2 0 - 2 /LPF [facility] Urine 01/22/2025 10:3 7 AM EDT 01/22/2025 1:50 PM EDT Narrative [facility] - 01/22/2025 2:04 PM EDT [id number], Clean Catch us Mariella Vanegas MD LAB URINE ORDERABLES Final Result [facility] [address] [place] [phone] [phone] * Vitamin D, 25-Hydroxy, Total, Immunoassay (01/22/2025 10:33 AM EDT) Vitamin D 25-OH Total 89.6 >30 ng/mL [facility] Comment: Health Based Reference Values*< 20 ng/mL Uvgtqtsug02-68 ng/mL Insufficient> 30 ng/mL Sufficient*Janet HOGUE. N [...] BLOOD ORDERABLES Final Result Performing Organization Address City/[facility]/ZIP Co de Phone Number [facility] [address] [place] [phone] * Vitamin B12/Folate, Serum Panel (01/22/2025 10:33 AM EDT) Vitamin B12 426 200 - 900 pg/mL [facility] Comment:NORMAL 200-900 PG/ML INDETERMINATE 160-199 PG/ML DEFICIENT < 160 PG/ML Folate 6.5 > or = 4.0 ng/mL [facility] Comment:Reference Values:> o r = 4.0 [...] BLOOD ORDERABLES Final Result Performing Organization Address [facility]/ZIP Co de Phone Number [facility] [address] [place] [phone] * TSH W/Reflex to FT4 (01/22/2025 10:33 AM EDT) TSH reflex Free T4 0.71 0.32 - 4.0 uIU/mL [facility] Blood Venous blood specimen / Unknown 01/22/2025 10:33 AM EDT 01/22/2025 2:01 PM EDT us Mariella Vanegas MD LAB BLOOD ORDERABLES Final Result Performing Organization Address [facility] Co de Phone Number [facility] [address] [place] [phone] * PSA, Total With Reflex to PSA, Free (01/22/2025 10:33 AM EDT) PSA,Total (Free>4and<10) 0.91 0.00 - 4.00 ng/mL [facility] Comment:A Free PSA was not p [...] are between 4.0 and 10.0 ng/mL.PSA methodology: Francis Alinity i ChemiluminescentMicroparticle Immunoassay (CMIA) 01/22/2025 10:3 3 AM EDT 01/22/2025 2:01 PM EDT us Mariella Vanegas MD LAB BLOOD ORDERABLES Final Result Performing Organization Address City/[facility] Co de Phone Number [facility] [address] [place] [phone] * CBC auto differential (01/22/2025 10:33 AM EDT) White Blood Count 7.3 4.8 - 10.8 X10*3/uL [facility] Red Blood Count 4.89 4.60 - 5.80 X10*6/uL [facility] Hemoglobin 15.8 14.0 - 18.0 g/dl [facility] Hematocrit 47.1 42.0 - 52.0 % [facility] Mean Corpuscular Volume 96.3 80.0 - 98.0 fL [facility] Mean Corpuscular Hemoglobin 32.3 27.0 - 33.0 pg [facility] Mean Corpuscular HGB Conc 33.5 31.0 - 36.0 g/dl [facility] Red Cell Distribution Width 13.4 11.0 - 16.0 % [facility] Platelet Count 207 160 - 400 X10*3/uL [facility] Mean Platelet Volume 11.2 9.4 - 12.4 fL [facility] Neutrophils Percent Auto 53.7 45 - 73 % [facility] Imm Gran Pct Auto 0.3 0.0 - 0.4 % [facility] Lymphocytes Percent Auto 33.0 20 - 40 % [facility] Monocytes Percent Auto 10.0 2 - 11 % [facility] Eosinophils Percent Auto 2.0 0 - 4 % [facility] Basophils Percent Auto 1.0 0 - 2 % [facility] NRBC Pct Auto 0.0 0.0 - 0.2 /100WBC [facility] Neutrophils Absolute Auto 3.9 2.0 - 8.3 x10*3/uL [facility] Imm Gran Abs Auto 0.02 0.00 - 0.03 X10*3/uL [facility] Lymphocytes Absolute Auto 2.4 1.2 - 4.9 X10*3/uL [facility] Monocytes Absolute Auto 0.7 0.1 - 1.2 X10*3/uL [facility] Eosinophils Absolute Auto 0.2 0.0 - 0.4 X10*3/uL [facility] Basophils Absolute Auto 0.1 0.0 - 0.2 X10*3/uL [facility] NRBC Abs Auto 0.000 0.0 - 0.012 X10*3/uL [facility] Blood Venous blood specimen / Unknown 01/22/2025 10:33 AM EDT 01/22/2025 2:01 PM EDT us Mariella Vanegas MD LAB BLOOD ORDERABLES Final Result Performing Organization Address City/[facility]/ZIP Co de Phone Number [facility] [address] [place] [phone] * Hemoglobin A1c (01/22/2025 10:33 AM EDT) Hemoglobin A1c 5.7 <6.0 % [facility] Comment:Hemoglobin A1C Refer ence Range Adults: 4.8 - 6.0 % Non diabetic: < 6.0 % Goal: < 7.0 %Additional Action Suggested: > 8.0 %Note: Hemoglobin A1c results are invalid for patients with abnormal amounts of HbF. Blood transfusions may impact the HbA1c concentration in the patient sample. Estimated Average Glucose 117 mg/dL [facility] Comment:eAG = Estimated ave rage glucose which is %A1C expressed asaverage glucose, using the formula of the R4O-CddcrfzQcebmev Glucose study (ADAG), Diabetes Care, Vol.31,#8,2007 Blood Venous blood specimen / Unknown 01/22/2025 10:33 AM EDT 01/22/2025 2:01 PM EDT us Mariella Vanegas MD LAB BLOOD ORDERABLES Final Result Performing Organization Address City/[facility]/ZIP Co de Phone Number [facility] [address] [place] [phone] * (ABNORMAL) Comprehensive Metabolic Panel (01/22/2025 10:33 AM EDT) Pathologist [facility] Sodium 143 135 - 145 mmol/L [facility] Potassium 4.1 3.3 - 5.1 mmol/L [facility] Chloride 109(H) 96 - 108 mmol/L [facility] Carbon Dioxide 24 22 - 29 mmol/L [facility] Anion Gap 14 12 - 20 [facility] Urea Nitrogen (BUN) 17(H) 9 - 16 mg/dL [facility] Creatinine, Serum 0.94 0.5 - 1.4 mg/dL [facility] Estimated Glomerular Filt Rate >60 [facility] Comment:Chronic Kidney Disea se: Estimated GFR < 60 mL/min/1.93s5Kvymei Kidney Disease: Estimated GFR < 15 mL/min/1.73m2 Glucose 105 60 - 115 mg/dL [facility] Calcium 9.3 8.4 - 10.2 mg/dL [facility] Bilirubin, Total 0.3 0.0 - 1.0 mg/dL [facility] Aspartate Amino Transferase 30 5 - 37 U/L [facility] Alanine Aminotransferase 44(H) 0 - 40 U/L [facility] Total Protein 6.9 6.5 - 8.0 g/dL [facility] Albumin Level 4.6 3.5 - 5.0 g/dL [facility] Alkaline Phosphatase 114 39 - 117 U/L [facility] Blood Venous blood specimen / Unknown 01/22/2025 10:33 AM EDT 01/22/2025 2:01 PM EDT us Mariella Vanegas MD LAB BLOOD ORDERABLES Final Result [facility] [address] [place], [place] [phone] * (ABNORMAL) Lipid Panel, Standard (06/25/2024 2:16 PM EST) Triglycerides 129 <150 mg/dL [facility] Comment:Desirable Triglyceri de: less than 150 mg/dLBorderline High Triglyceride 150-199 mg/dLHigh Triglyceride: 200-499 mg/dLVery High Triglyceride: greater than or equal to 5OO mg/dL Cholesterol 271(H) <200 mg/dL [facility] Comment:Desirable Cholestero l: less than 200 mg/dLBorderline High Cholesterol: 200-239 mg/dLHigh Cholesterol: greater than 239 mg/dL LDL Cholesterol Calculated 189(H) <100 mg/dL [facility] Comment:Desirable LDL: less than 100 mg/dLNear Optimal/Above Optimal LDL: 110- 129 mg/dLBorderline High LDL: 130-159 mg/dLHigh LDL: 160-189 mg/dLVery High LDL: greater than or equal to 190 mg/dL HDL Cholesterol 57 >40 mg/dL [facility] Comment:Desirable HDL: great er than 40 mg/dL Note: This HDL assay may give artificially low results in patients with liver disease. Blood Venous blood specimen / Unknown 06/25/2024 2:16 PM EST 06/25/2024 5:37 PM EST us Mariella Vanegas MD LAB BLOOD ORDERABLES Final Result [facility] [address] [place] [phone] * HIV-1 RNA, Quantitative, Real-Time PCR (08/04/2023 10:09 AM EST) [facility] HIV RNA PCR Qn Copies NOT DETECTED NOT DETECTED copies/mL [facility] HIV RNA PCR Qn Log Copies NOT DETECTED NOT DETECTED [facility] Comment:Result Units: Log co pies/mLThis test was performed using Real-Time Polymerase ChainReaction.Reportable Range: 20 copies/mL to 10,000,000 copies/mL(1.30 log copies/mL to 7.00 log copies/mL).THIS TEST WAS PERFORMED AT:[facility] [place] [phone] CHADWICK MD Blood Venous blood specimen / Unknown 08/04/2023 10:09 AM EST 08/04/2023 11:22 AM EST us Mariella Vanegas MD LAB BLOOD ORDERABLES Final Result Performing Organization Address City/[facility]/ZIP Co de Phone Number [facility] [address] [place] [phone] * Colonoscopy (12/30/2020) Anatomical Region Laterality Modality Endoscopy Narrative 12/30/2020 Normal Mucosa in the whole colon and terminal ileum. Done by Dr Barrie Rain us Historical Provider ENDOSCOPY PROCEDURE ORDER RADHA Final Result from Last 3 Months or Most Recently Relevant to Health Maintenance Insurance [address] [facility] [address] [place] [facility] < 67 [place] [id number] [place] [id number] [place] [id number] Care Teams Attendant Child Activity Relationship Specialty Start Date End Date Mariella Vanegas MD [address] [place] [address] [place] [phone] PCP - General Internal Medicine 06/13/18
--- OUTSIDE RECORDS SUMMARY | 2025-04-17 07:33 | XMS_ITS | Encounter Summary ---
Author Organization [employer] Address [address] [facility] 7t [place] [address] Care Team Providers Care Kettle Hand Name Role Phone Mariella Vanegas MD Primary Care Provider [phone] Encounter Details Date Type Department Care Team ([facility] st Contact Info) Description 04/20/2024 Orders Only [facility] CHC MED & PEDS [address] [place], [place] [phone] Mariella Vanegas MD 505 [place] [address] Encounter for HIV pre-exposure prophylaxis Social History [...] ([facility] st Contact Info) Description 06/24/2025 10:30 AM EST Telemedicine [facility] MED & PEDS [address] [place] [address] 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, JOSE 505 [place] [address] documented as of this encounter Visit Diagnoses Diagnosis Encounter for HIV pre-exposure prophylaxis documented in this encounter Additional Health Concerns Assessment Noted Time PHQ-9 Depression Total Score: 14 024 4:05 PM EDT documented as of this encounter Care Teams Kettle Hand Relationship Specialty Start Date End Date Mariella Vanegas MD [address] [place] [address] PCP - General Internal Medicine 06/13/18 documented as of this encounter
--- OUTSIDE RECORDS SUMMARY | 2025-04-17 07:33 | XMS_ITS | Encounter Summary ---
Author Organization [employer] Address [address] [place] [address] 7 [place] [address] Care Team Providers Care Inspector Penetrant Name Role Phone Mariella Vanegas MD Primary Care Provider [phone] Reason for Referral * Consultation (Routine) - Closed Specialty Diagnoses / Procedures Referred By Contjeanine t Referred To Contact Neurosurgery Diagnoses Spinal stenosis in cervical region Mariella Vanegas MD [address] [place] [address] Phone: tel: fax: Bony Soliz [facility] Danii [place], [place] Phone: tel: fax: Referral ID Status Reason Start Date Expiration Date V isits Requested Visits Authorized [id number] Closed Specialty Services Required 09/14/2023 09/13/2024 1 1 Encounter Details Date Type Department Care Team (Late st Contact Info) Description 09/14/2023 Orders Only [facility] CHC MED & PEDS [address] [place], [place] [phone] Mariella Vanegas MD [address] [place], [place] [phone] Spinal stenosis in cervical region (Primary Dx) [...] Info) Description 06/24/2025 10:30 AM EST Telemedicine [facility] MED & PEDS [address] [place] [address] 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, JOSE 505 [place] [address] Scheduled Referrals Name Type Priority Associated Diagnoses [...] documented as of this encounter Care Teams Inspector Penetrant Relationship Specialty Start Date End Date Mariella Vanegas MD [address] [place] [phone] PCP - General Internal Medicine 06/13/18 documented as of this encounter
--- OUTSIDE RECORDS SUMMARY | 2025-04-17 07:33 | XMS_ITS | Encounter Summary ---
Author Organization [employer] Address [address] [facility] 7t [place] [address] Care Team Providers Care Test Deskman Name Role Phone Mariella Vanegas MD Primary Care Provider [phone] Encounter Details Date Type Department Care Team (Late st Contact Info) Description 02/02/2023 Abstract [employer] [facility] [address] [place] [address] Mariella Vanegas MD [address] [place] [address] Social History Tobacco Use Types Packs/Day Years [...] Not difficult at all 02/04/2023 3:35 PM Elisabeth Nagel MA * Over the past 2 weeks, how often have you been bothered by any of the following problems? Question Answer Date of Assessment Author Little interest or pleasure in doing things Several days 02/04/2023 3:35 PM Elisabeth Nagel MA Feeling down, depressed, or hopeless Not at all 02/04/2023 3:35 PM Elisabeth Nagel MA Trouble falling or staying asleep, or sleeping too much Not at all 02/04/2023 3:35 PM Pete Nagel MA Feeling tired or having marquise le energy Not at all 02/04/2023 3:35 PM Elisabeth Nagel MA Poor appetite or overeating Not at all 02/04/2023 3: 35 PM Elisabeth Nagel MA Feeling bad about yourself - or that you are a failure or have let yourself or your family down Not at all 02/04/2023 3:35 PM Elisabeth Nagel MA Trouble concentrating on things, such as reading the newspaper or watching television Not at all 02/04/2023 3:35 PM Elisabeth Nagel MA Moving or speaking so slowly that other people could have noticed? Or the opposite - being so fidgety or restless that you have been moving around a lot more than usual. Not at all 02/04/2023 3:35 PM Elisabeth Nagel MA Thoughts that you would be better off or hurting yourself in some way Not at all 02/04/2023 3:35 PM Elisabeth Nagel MA Patient Health Questionnaire -9 Score 1 02/04/2023 3:35 PM Elisabeth Nagel MA documented as of this encounter Plan of Treatment Upcoming Encounters Date Type Department Care Team (Late st Contact Info) Description 06/24/2025 10:30 AM EST Telemedicine [facility] MED & PEDS 505 [place] [address] 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, RN 505 [place] [address] documented as of this encounter Visit Diagnoses Not on filedocumented in this encounter Care Teams Test Deskman Relationship Specialty Start Date End Date Mariella Vanegas MD [address] [place] [address] PCP - General Internal Medicine 06/13/18 documented as of this encounter
--- OUTSIDE RECORDS SUMMARY | 2025-04-17 07:33 | XMS_ITS | Encounter Summary ---
Author Organization [email or web address] Address [address] [facility] 7t [place] [address] Care Team Providers Care Vocational Ed Instructor Name Role Phone Mariella Vanegas MD Primary Care Provider [phone] Encounter Details Date Type Department Care Team ([facility] st Contact Info) Description 01/05/2024 Orders Only [facility] CHC MED & PEDS 505 [place], [place] [phone] Mariella Vanegas MD 505 [place] [address] On pre-exposure prophylaxis for HIV Social History [...] Info) Description 06/24/2025 10:30 AM EST Telemedicine [facility] MED & PEDS 505 [place] [address] 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, JOSE 505 [place] [address] documented as of this encounter Visit Diagnoses Diagnosis On pre-exposure prophylaxis for HIV documented in this encounter Additional Health Concerns Assessment Noted Time PHQ-9 Depression Total Score: 1 02/05/20 23 3:35 PM EDT documented as of this encounter Care Teams Vocational Ed Instructor Relationship Specialty Start Date End Date Mariella Vanegas MD [address] [place] [address] PCP - General Internal Medicine 06/13/18 documented as of this encounter
--- OUTSIDE RECORDS SUMMARY | 2025-04-17 07:33 | XMS_ITS | Encounter Summary ---
Author Organization [employer] Address [address] [facility] 7 [place] [address] Care Team Providers Care Precinct I Police Sergeant Name Role Phone Mariella Vanegas MD Primary Care Provider [phone] Reason for Visit * Reason Onset Date Comments Nurse Triage 01/07/2025 Encounter Details Date Type Department Care Team ([facility] st Contact Info) Description 01/07/2025 Telephone [facility] CHC MED & PEDS [address] [place] [address] Mariella Vanegas MD [address] [place] [address] Nurse Triage Social History Tobacco Use Types [...] Ptis advised no available apts today in [facility]. Pt is advised to come to [facility] to be seen by provider and Pt agrees with disposition and knows where the WIC is located. Insurance is not verified. Medicare/ERPLY. Pt reports insurance is in good standing [...] caller accepted this outcome. Contact pt at [phone] documented in this encounter Plan of Treatment Upcoming Encounters Date Type Department Care Team ([facility] st Contact Info) Description 06/24/2025 10:30 AM EST Telemedicine [facility] CHC MED & PEDS [address] [place] [address] 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 RN 505 [place] [address] documented as of this encounter Visit Diagnoses Diagnosis Chronic pain disorder Chronic pain syndrome documented in this encounter Additional Health Concerns Assessment Noted Time PHQ-9 Depression Total Score: 14 024 4:05 PM EDT documented as of this encounter Care Teams Precinct I Police Sergeant Relationship Specialty Start Date End Date Mariella Vanegas MD [address] [place] [address] PCP - General Internal Medicine 06/13/18 documented as of this encounter
--- OUTSIDE RECORDS SUMMARY | 2025-04-17 07:33 | XMS_ITS | Encounter Summary ---
Author Organization [employer] Address [address] [facility] 7t [place] [address] Care Team Providers Care Newspaper Columnist Name Role Phone Mariella Vanegas MD Primary Care Provider [phone] Encounter Details Date Type Department Care Team ([facility] st Contact Info) Description 08/04/2023 Orders Only [facility] CHC MED & PEDS [address] [place], [place] [phone] Mariella Vanegas MD 505 [place] [address] Encounter for HIV pre-exposure prophylaxis (Primary Dx) [...] Info) Description 06/24/2025 10:30 AM EST Telemedicine [facility] CHC MED & PEDS [address] [place] [address] 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 RN 505 [place] [address] documented as of this encounter Procedures Procedure Name Priority Date/Time Associated Diagnosis Comments CONFIRMATORY SYPHILIS PROFILE Routine 08/04/2023 10:09 AM EST Encounter for HIV pre-exposure prophylaxis documented in this encounter Results * (ABNORMAL) Confirmatory Syphilis Profile (08/04/2023 10:09 AM EST) Rapid Plasma Reagin, Quant Non-React omid Nonreactive [facility] Treponema pallidum Antibody, Particle Agglutination Reactive( A) Nonreactive [facility] 08/04/2023 10:0 9 AM EST 08/04/2023 12:10 PM EST us Mariella Vanegas MD LAB BLOOD ORDERABLES Final Result [facility] [address] [place] [address] [phone] documented in this encounter Visit Diagnoses Diagnosis Encounter for HIV pre-exposure prophylaxis- Primary documented in this encounter Additional Health Concerns Assessment Noted Time PHQ-9 Depression Total Score: 1 02/05/20 23 3:35 PM EDT documented as of this encounter Care Teams Newspaper Columnist Relationship Specialty Start Date End Date Mariella Vanegas MD [address] [place] [address] PCP - General Internal Medicine 06/13/18 documented as of this encounter
--- OUTSIDE RECORDS SUMMARY | 2025-04-17 07:33 | XMS_ITS | Encounter Summary ---
Author Organization [employer] Address [address] [facility] 7t [place] [address] Care Team Providers Care Air Commodore Name Role Phone Mariella Vaneags MD Primary Care Provider [phone] Encounter Details Date Type Department Care Team ([facility] Contact Info) Description 01/26/2023 Orders Only [facility] MED & PEDS [address] [place], [place] [phone] Mariella Vanegas MD 505 [place], [place] [phone] Screening for STD (sexually transmitted disease) (Primary [...] Department Care Team (Late Contact Info) Description 06/24/2025 10:30 AM EST Telemedicine [facility] CHC MED & PEDS [address] [place], [place] [phone] 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 RN 505 [place], [place] [phone] documented as of this encounter Visit Diagnoses Diagnosis Screening for STD (sexually transmitted disease)- Primary Hypercholesterolemia Pure hypercholesterolemia documented in this encounter Care Teams Air Commodore Relationship Specialty Start Date End Date Mariella Vanegas MD [address] [place] [address] PCP - General Internal Medicine 06/13/18 documented as of this encounter
--- OUTSIDE RECORDS SUMMARY | 2025-04-17 07:33 | XMS_ITS | Encounter Summary ---
Author Organization [employer] Address [address] [place] [address] 7 [place] [address] Care Team Providers Care Hydraulic Strainer Operator Name Role Phone Mariella Vanegas MD Primary Care Provider [phone] Reason for Referral * Imaging (Routine) - Authorized Specialty Diagnoses / Procedures Referred By Contac t Referred To Contact Radiology Diagnoses Transaminitis Procedures US Abdomen Comp w elastography Mariella Vanegas MD [address] [place] [address] Phone: tel: fax: [address] Phone: tel: fax: Referral ID Status Reason Start Date Expiration Date V isits Requested Visits Authorized [id number] Authorized 01/25/2025 01/25/2026 1 1 Encounter Details Date Type Department Care Team (Late st Contact Info) Description 01/25/2025 Orders Only [facility] CHC MED & PEDS [address] [place], [place] [phone] Mariella Vanegas MD [address] [place] [address] Transaminitis (Primary Dx); Glucosuria with normal serum [...] 06/24/2025 10:30 AM EST Telemedicine [facility] MED & PEDS [address] [place] [address] 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, JOSE [address] [place] [address] Scheduled Orders Name Type Priority Associated Diagnoses [...] PM EDT) Hepatitis A IgM Nonreactive Nonreactive [facility] Comment:IgM antibodies to DIAZ V not detected; does not exclude earlyacute or recovered HAV infection. ~Hepatitis B Surface Antibody NONREACTIVE Nonreactive [facility] Comment:Nonreactive: < 8.00 mIU/mL Hepatitis B Core Antibody Nonreactive Nonreactive [facility] Hepatitis C Antibody Nonreactive Nonreactive [facility] Comment:Antibodies to HCV no t detected; does not exclude early acuteHCV infection. Hepatitis B Surface Ag Negative Negative [facility] Blood Venous blood specimen / Unknown 01/25/2025 12:37 PM EDT 01/25/2025 2:09 PM EDT us Mariella Vanegas MD LAB BLOOD ORDERABLES Final Result Performing Organization Address City/[facility]/ZIP Co de Phone Number [facility] [address] [place] [phone] * Iron And Total Iron Binding Capacity (01/25/2025 12:37 PM EDT) Iron 111 45 - 160 mcg/dL [facility] Total Iron Binding Capacity 325 228 - 428 mcg/dL [facility] Percent Iron Saturation 34 15 - 50 % [facility] Unsaturated Iron Binding 214 ug/dL [facility] Blood Venous blood specimen / Unknown 01/25/2025 12:37 PM EDT 01/25/2025 2:09 PM EDT us Mariella Vanegas MD LAB BLOOD ORDERABLES Final Result Performing Organization Address [facility] Co de Phone Number [facility] [address] [place] [phone] * Ferritin (01/25/2025 12:37 PM EDT) Ferritin 103 20 - 250 ng/mL [facility] Blood Venous blood specimen / Unknown 01/25/2025 12:37 PM EDT 01/25/2025 2:09 PM EDT us Mariella Vanegas MD LAB BLOOD ORDERABLES Final Result Performing Organization Address City/[facility]/ZIP Co de Phone Number [facility] [address] [place] [address] [phone] * Prothrombin Time-INR (01/25/2025 12:37 PM EDT) Pathologist [facility] Prothrombin Time 11.0 10.9 - 12.4 SEC [facility] INTERNATIONAL NORM RATIO 1.0 0.9 - 1.1 [facility] Comment:INTERNATIONAL NORMAL IZED RATIO (INR) [...] ORDERABLES Final Result Performing Organization Address [facility]/ZIP Co de Phone Number [facility] [address] [place] [phone] * Immunoglobulins, Quantitative, IgA, IgG, IgM (01/25/2025 12:37 PM EDT) Pathologist [facility] IMMUNOGLOBULIN G 713 600 - 1640 mg/dL [facility] IMMUNOGLOBULIN A 131 47 - 310 mg/dL [facility] Immunoglobulin M 85 50 - 300 mg/dL [facility] Comment:THIS TEST WAS PERFOR MED AT:[facility] [address] [phone] CHADWICK MD Blood Venous blood specimen / Unknown 01/25/2025 12:37 PM EDT 01/25/2025 2:09 PM EDT Mariella Vanegas MD LAB BLOOD ORDERABLES Final Result Performing Organization Address City/[facility]/ZIP Co de Phone Number [facility] [address] [place] [address] [place] [phone] documented in this encounter Visit Diagnoses Diagnosis Transaminitis- Primary Nonspecific elevation of levels of transaminase or lactic acid dehydrogenase (LDH) Glucosuria with normal serum glucose documented in this encounter Additional Health Concerns Assessment Noted Time PHQ-9 Depression Total Score: 14 025 10:30 AM EDT documented as of this encounter Care Teams Hydraulic Strainer Operator Relationship Specialty Start Date End Date Mariella Vanegas MD [address] [place] [address] PCP - General Internal Medicine 06/13/18 documented as of this encounter
--- OUTSIDE RECORDS SUMMARY | 2025-04-17 07:33 | XMS_ITS | Encounter Summary ---
Author Organization [employer] Address [address] [facility] 7t [place] [address] Care Team Providers Care Junior Sales Assistant Name Role Phone Mariella Vanegas MD Primary Care Provider [phone] Encounter Details Date Type Department Care Team (Latest Contact Info) Description 06/27/2024 Orders Only [facility] CHC MED & PEDS [address] [place], [place] [phone] Mariella Vanegas MD [address] [place] [address] Hypercholesterolemia (Primary Dx) Social History Tobacco Use [...] Description 06/24/2025 10:30 AM EST Telemedicine [facility] MED & PEDS [address] [place] [address] 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, RN [address] [place] [address] documented as of this encounter Visit Diagnoses Diagnosis Hypercholesterolemia- Primary Pure hypercholesterolemia documented in this encounter Additional Health Concerns Assessment Noted Time PHQ-9 Depression Total Score: 14 024 4:05 PM EDT documented as of this encounter Care Teams Junior Sales Assistant Relationship Specialty Start Date End Date Mariella Vanegas MD [address] [place] [address] PCP - General Internal Medicine 06/13/18 documented as of this encounter
--- OUTSIDE RECORDS SUMMARY | 2025-04-17 07:33 | XMS_ITS | Encounter Summary ---
Author Organization [email or web address] Address 75 [facility] 7t [place] [address] Care Team Providers Care Health Safety Coordinator Name Role Phone Mariella Vanegas MD Primary Care Provider [phone] Encounter Details Date Type Department Care Team ([facility] st Contact Info) Description 09/20/2024 Orders Only [facility] [address] [place] [address] Provider, MD Rupa Social History Tobacco Use [...] 06/24/2025 10:30 AM EST Telemedicine [facility] MED & PEDS 505 [place] [address] 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 RN 505 [place] [address] documented as of this encounter Procedures Procedure [...] documented as of this encounter Care Teams Health Safety Coordinator Relationship Specialty Start Date End Date Mariella Vanegas MD 505 [place] [address] PCP - General Internal Medicine 06/13/18 documented as of this encounter
--- OUTSIDE RECORDS SUMMARY | 2025-04-17 07:33 | XMS_ITS | Encounter Summary ---
Author Organization [employer] Address 75 [facility] 7t [place] [address] Care Team Providers Care Stock Transfer Clerk Name Role Phone Mariella Vanegas MD Primary Care Provider [phone] Encounter Details Date Type Department Care Team ([facility] st Contact Info) Description 03/04/2025 Results Follow-Up [facility] CHC MED & PEDS [address] [place], [place] [phone] Mariella Vanegas MD [address] [place] [address] XR Elbow 3+ Views Right Social History Tobacco Use Types Packs/Day Years [...] Info) Description 06/24/2025 10:30 AM EST Telemedicine [facility] MED & PEDS [address] [place] [address] 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 RN [address] [place] [address] documented as of this encounter Visit Diagnoses Not on filedocumented in this encounter Additional Health Concerns Assessment Noted Time PHQ-9 Depression Total Score: 14 025 10:30 AM EDT documented as of this encounter Care Teams Stock Transfer Clerk Relationship Specialty Start Date End Date Mariella Vanegas MD [address] [place] [address] PCP - General Internal Medicine 06/13/18 documented as of this encounter
--- OUTSIDE RECORDS SUMMARY | 2025-04-17 07:33 | XMS_ITS | Encounter Summary ---
Author Organization [employer] [facility] Address [address] [place] [address] 7t [place] [address] Care Team Providers Care Traffic Court Magistrate Name Role Phone Mariella Vanegas MD Primary Care Provider [phone] Encounter Details Date Type Department Care Team (Late st Contact Info) Description 05/10/2022 Abstract [facility] [address] [place] [address] ProviderRupa MD Social History Tobacco Use Types [...] Info) Description 06/24/2025 10:30 AM EST Telemedicine [facility] MED & PEDS [address] [place] [address] 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, JOSE [address] [place] [address] documented as of this encounter Visit Diagnoses Not on filedocumented in this encounter Care Teams Traffic Court Magistrate Relationship Specialty Start Date End Date Mariella Vanegas MD [address] [place] [address] PCP - General Internal Medicine 06/13/18 documented as of this encounter
--- OUTSIDE RECORDS SUMMARY | 2025-04-17 07:33 | XMS_ITS | Encounter Summary ---
Author Organization [employer] Address [address] [facility] 7t [place] [address] Care Team Providers Care Materials Planning Manager Name Role Phone Mariella Vanegas MD Primary Care Provider [phone] Encounter Details Date Type Department Care Team (Late Contact Info) Description 09/15/2022 Orders Only [facility] MED & PEDS [address] [place] [address] Mariella Vanegas MD [address] [place] [address] Social History Tobacco Use Types Packs/Day Years [...] Info) Description 06/24/2025 10:30 AM EST Telemedicine [facility] CHC MED & PEDS [address] [place] [address] 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, JOSE [address] [place], [place] [phone] documented as of this encounter Visit Diagnoses Not on filedocumented in this encounter Care Teams Materials Planning Manager Relationship Specialty Start Date End Date Mariella Vanegas MD [address] [place] [address] PCP - General Internal Medicine 06/13/18 documented as of this encounter
== END 2025-04-17 07:30 | disposition home or self-care (01) ==
LOC: HO.US 07:29
PROVIDERS: PCP Internal Medicine; Visit Provider Internal Medicine
DX: R74.01 Elevation of levels of liver transaminase levels (principal); M77.11 Lateral epicondylitis, right elbow
CPT/HCPCS: 20551; 20605; 76700; 76981; J1100; J2003

== ENCOUNTER → 2025-04-17 07:31 | Outpatient (BNV) | payer OTHER, SELFPAY | PROVIDERS: PCP Internal Medicine; Visit Provider Radiology Diagnostic Radiology | DX: R74.01 Elevation of levels of liver transaminase levels (principal) | CPT/HCPCS: 76700 ==

== ENCOUNTER 2025-04-17 08:13 | Outpatient (AMB) | payer OTHER, SELFPAY ==
--- NOTE | 2025-04-17 08:39 | A.OFFVIS_ITS ---
Vital Signs 04/17/25 08:40 Height 5 ft 10 in Weight 179 lb BMI 25.7 Intake Visit Reasons: Inj: Right elbow injection Intake Note: Violette is a 54 year old right hand dominant male who presents today for a Right Elbow Injection. Allergies bee pollen (BEE STINGS) Allergy (Severe, Verified 04/17/25 08:47) ANAPHYLAXIS varenicline (From Chantix) Adverse Reaction (Severe, Verified 04/17/25 08:47) Agitated HPI HPI Inj: Right elbow injection: Details: Violette is a 54 year old right hand dominant male who presents today for a Right Elbow Injection. Right lateral epicondylitis diagnosed at last appointment, but patient needed to finish some projects in his house before being able to take it easy after injection. [facility] Medical History (Updated 04/09/25 @ 17:36 by NOEMÍ Alvarez) COPD (chronic obstructive pulmonary disease) Bronchitis Tobacco dependence Chest pain Dyspnea Mediastinal mass Abnormal PFTs (pulmonary function tests) Depressive disorder Anxiety Hypospadias in male Surgical History History of back surgery History of knee surgery Family History (Updated 11/15/24 @ 13:16 by Marissa Forbes) Mother High blood pressure Father Liver cancer Diabetes Social History Alcohol intake: current Alcohol intake frequency: a few times a week Patient Tobacco Use Status: Current everyday Tobacco user Tobacco use type: Cigarette Years Smoked: Since 16 years old Current occupational status: disabled Current occupation: rt handed Review of Systems Const All systems reviewed & are unremarkable except as noted in HPI and below Physical Exam Vital Signs: BMI result Body Mass Index 25.7 Office Procedures Joint Inj/Aspir; Non-Pain Clin Joint Injection/Drain Prep: site was prepped using aseptic technique and injection warnings given Procedure: The patient tolerated the procedure well and there was some relief with the local anesthesia Elbows, Wrist, Hands, Elbow Injection Medium joint : Right Elbow Coding Procedure code (CPT) selection complete Assessment & Plan Assessment & Plan (1) Right lateral epicondylitis: Code(s): M77.11 - Lateral epicondylitis, right elbow Category: Medical Plan 1. Right lateral epicondylitis The risks and benefits of a steroid injection including but not limited to risk of damage to blood vessels, nerves, tendons, infection, skin bleaching, failure to improve symptoms, increased pain, and possible need for further injections or other intervention were discussed with the patient and the patient wishes to proceed with the steroid injection. Once consent was obtained, I sterilely prepped the area over the lateral epicondyle of the left elbow. I then injected the area over the lateral epicondyle with a combination of 40 mg of dexamethasone and 1 mL of 1% lidocaine. The patient tolerated the procedure well with no complications. If the patient continues to experience symptoms over the next 4 weeks, they can make an appointment to return and discuss alternative treatment measures, such as physical therapy. Follow-up prn Orders: Orders OT Evaluation and Treatment 04/17/25 M77.11 - Lateral epicondylitis, right elbow Coding Level of Care Code Procedure Only Diagnoses Right lateral epicondylitis M77.11 CPT Codes Elbows, Wrist, Hands, - Elbow Injection Medium joint 21149: Right Elbow ([id number])
[2025-04-17 08:40] VITALS: BMI 25.7
== END 2025-04-17 08:56 | disposition home or self-care (01) ==
LOC: HO.HOS 08:13
PROVIDERS: PCP Internal Medicine
DX: M77.11 Lateral epicondylitis, right elbow (principal)
CPT/HCPCS: 20551; 20605